=== PATIENT | male | born 1955 | race African-American/Black ===

== ENCOUNTER 2019-03-12 12:15 | Inpatient (IN) ==
--- NOTE | 2019-03-12 13:48 | Diag Imaging Result Doc PS360 ---
EXAM: CHEST-2 VIEWS HISTORY: short of breath TECHNIQUE: Two views COMPARISON: 01/15/2019 FINDINGS: The lungs are well expanded. The heart is not enlarged. The vessels are not distended. There are no infiltrates. No pleural effusions. Lower right lung calcified granuloma. IMPRESSION: No acute abnormality. Electronically signed by Nitesh Gillette 03/12/2019 1:46 PM
[2019-03-12 14:09] LABS: BASO# 0.01 X1000 (0.0-0.2); BASO% 0.1 % (0.0-0.8); EOS# 0.01 X1000 (0.0-0.7); EOS% 0.1 % (0.0-10.0); HEMATOCRIT 37.2 % (42.0-52.0); HEMOGLOBIN 12.5 g/dL (14.0-18.0); IMM GRAN# 0.03 X1000 (0.0-0.04); IMM GRAN% 0.2 % (0.0-0.5); LYMPH# 1.55 X1000 (1.2-3.4); LYMPH% 8.2 % (20.5-51.1); MCH 29.3 PG (27-31); MCHC 33.6 g/dL (33-37); MCV 87.1 FL (81-99); MONO# 0.87 X1000 (0.11-0.59); MONO% 4.6 % (1.7-9.3); MPV 11.4 FL (7.4-10.4); NEUT# 16.37 X1000 (1.4-6.5); NEUT% 86.8 % (42.2-75.2); PLT 293 X1000 (130-400); RBC 4.27 XMIL (4.7-6.1); RDW 13.4 % (11.5-14.5); WBC 18.84 X1000 (4.8-10.8)
[2019-03-12 14:36] LABS: AGAP 17; ALB/GLOB RATIO 1.4; ALBUMIN 4.1 g/dL (3.5-5.0); ALKALINE PHOSPHATASE 104 U/L (32-122); BUN 12 mg/dL (8-22); CALCIUM 9.3 mg/dL (8.8-10.2); CHLORIDE 99 mmol/L (98-107); COSMO 287; CREATININE 1.1 mg/dL (0.7-1.2); ESTIMATED GFR > 60; GLUCOSE 247 mg/dL (70-104); GOT 18 U/L (10-34); GPT 13 U/L (10-44); POTASSIUM 3.5 mmol/L (3.5-5.1); SODIUM 140 mmol/L (136-145); TCO2 24 mmol/L (25-35); TOTAL BILIRUBIN 0.27 mg/dL (0.20-1.00)
[2019-03-12 15:01] LABS: URINE SOURCE CLEAN CATCH
[2019-03-12 15:13] LABS: BILIRUBIN URINE NEGATIVE (NEGATIVE); BLOOD URINE NEGATIVE (NEGATIVE); COLOR YELLOW; GLUCOSE URINE 1000 mg/dL (NEGATIVE); KETONE URINE 20 mg/dL (NEGATIVE); LEUKOCYTES URINE NEGATIVE (NEGATIVE); NITRITE URINE NEGATIVE (NEGATIVE); PH URINE 7.5; PROTEIN URINE 30 mg/dL (NEGATIVE); SP GRAVITY URINE 1.016; TURBIDITY URINE CLEAR (CLEAR); UROBILINOGEN URINE NORMAL (NORMAL)
[2019-03-12 15:16] LABS: UR EPITHELIAL CELLS <10 /HPF (<10); URINE BACTERIA NEGATIVE /HPF; URINE RBC <10 /HPF (<10); URINE WBC <10 /HPF (<10)
[2019-03-12 15:25] LABS: UR AMPHETAMINES QUAL NONE DETECTED (NONE DETECT); UR BARBITUATES QUAL NONE DETECTED (NONE DETECT); UR BENZODIAZEPIN QUAL NONE DETECTED (NONE DETECT); UR CANNABINOIDS QUAL NONE DETECTED (NONE DETECT); UR COCAINE QUAL NONE DETECTED (NONE DETECT); UR METHADONE QUAL NONE DETECTED (NONE DETECT); UR OPIATES QUAL NONE DETECTED (NONE DETECT); UR OXYCODONE QUAL NONE DETECTED (NONE DETECT); UR PCP QUAL NONE DETECTED (NONE DETECT)
--- NOTE | 2019-03-12 17:15 | Diag Imaging Result Doc PS360 ---
EXAM: CT HEAD W/O CONTRAST HISTORY: weakness TECHNIQUE: CT head without intravenous contrast COMPARISON: 11/20/2018 FINDINGS: No parenchymal hemorrhage. No epidural or subdural hematoma. No subarachnoid hemorrhage. Small old left periventricular infarct near the frontal horn of the internal capsule. No mass identified on this noncontrasted exam. No hydrocephalus. No sinus opacification. IMPRESSION: 1.No hemorrhage 2.Small old left infarct. This exam was performed using automated exposure control, adjustment of mA or kV according to patient size, and/or use of iterative reconstruction technique. Electronically signed by Nitesh Gillette 03/12/2019 5:12 PM
--- NOTE | 2019-03-12 17:54 | PROVIDER DOCUMENTATION ---
This chart was entered by Mikki Pham Scribe, acting as scribe for Saman Arteaga MD. HPI-Neurological Disorder - General Chief Complaint: Stroke-Like Symptoms Stated Complaint: WEAK ALL OVER Time Seen by Provider: 03/12/19 12:59 Source: patient Allergies/Adverse Reactions: Patient Allergies Allergy/AdvReac Type Severity Reaction Status Date / Time Sulfa (Sulfonamide Allergy RASH Verified 03/10/19 14:51 Antibiotics) cephalexin [From Keflex] AdvReac RASH Verified 03/10/19 14:51 Home Medications: Home Medication List Medication Instructions Recorded Confirmed Last Taken Type Amlodipine Besylate [Norvasc] 1 tab PO DAILY 01/10/19 03/10/19 01/10/19 History Aripiprazole [Abilify] 1 tab PO QHS 01/10/19 03/10/19 01/10/19 History Cetirizine HCl [Zyrtec] 1 tab PO DAILY 01/10/19 03/10/19 01/10/19 History Cholecalciferol (Vit D3) [Vitamin 1 cap PO DAILY 01/10/19 03/10/19 01/10/19 History D] Duloxetine [Cymbalta] 1 cap PO DAILY 01/10/19 03/10/19 01/10/19 History Lisinopril [Zestril] 1 tab PO DAILY 01/10/19 03/10/19 01/10/19 History Metformin [Glucophage] 1 tab PO BID 01/10/19 03/10/19 01/10/19 History Metoprolol [Lopressor] 1 tab PO BID 01/10/19 03/10/19 01/10/19 History Mirtazapine [Remeron] 1 tab PO QHS 01/10/19 03/10/19 01/10/19 History Naproxen [Naprosyn] 1 tab PO BID 01/10/19 03/10/19 01/10/19 History Nystatin/Triamcin 1 applicatn TOP DIRECTED 01/10/19 03/10/19 01/10/19 History [Nystatin-Triamcinolone Cream] Tamsulosin [Flomax] 1 cap PO BID 01/10/19 03/10/19 01/10/19 History - History of Present Illness-Neuro Nature of Presenting Problem: 63 y/o male presents to ED with generalized weakness, slurred speech, and decreased ability to walk onset 4 days ago. Pt denies fever or any other complaints. Pt is alert and oriented. Headache Location: reports: other Severity: reports: mild Onset/Duration: reports: 4 days ago Timing: reports: still present Context: reports: impaired speech, other (generalized weakness; decreased ability to walk) Character of Altered Mental Status: reports: N/A Any recent trauma/injury?: reports: none Character of Deficits: reports: new weakness, impaired speech, decreased ability to walk New weakness or altered sensation location:: reports: general (diffuse) Cognitive Baseline: alert, oriented x3 Gait Baseline: walks without assistance Associated Symptoms: reports: decreased ability to walk or stand, slurred speech , trouble walking, weakness Similar Symptoms Previously?: Yes Recently seen or treated by another doctor?: Yes (ED 2 days ago) Review of Systems - Adult - REVIEW OF SYSTEMS - ADULT Constitutional: denies: chills, fever Eyes: reports: no symptoms reported Ears, Nose, Mouth & Throat: reports: no symptoms reported Cardiovascular: denies: chest pain, palpitations Respiratory: denies: cough, shortness of breath Gastrointestinal: denies: abdominal pain, diarrhea, nausea, vomiting Genitourinary: reports: no symptoms reported Musculoskeletal: reports: no symptoms reported Integumentary: reports: no symptoms reported Neurological: reports: slurred speech, other (generalized weakness; decreased ability to walk). denies: dizziness/vertigo, headache/migraines, seizure Psychiatric: reports: no symptoms reported Endocrine: reports: no symptoms reported Hematologic/Lymphatic: reports: no symptoms reported Allergic/Immunologic: reports: no symptoms reported All Other Systems: Reviewed and Negative Past History - Adult - PAST MEDICAL HISTORY-ADULT Review of Records: reports: Old Records Reviewed, Nursing Assessment Review, Medications Reviewed Major Childhood Illnesses: reports: denies history Cardiovascular: reports: CAD, CHF, HTN, hyperlipidemia Respiratory: reports: asthma Gastrointestinal: reports: GERD Obstetrical/Gynecological: reports: denies history Genitourinary: reports: denies history Musculoskeletal: reports: denies history Neurological: reports: denies history Psychiatric: reports: psychiatric problems Endocrine/Immune: reports: Diabetes Diabetes Type: Type 2 Other Conditions: reports: denies history - PRIOR SURGERIES/PROCEDURES Surgical/Procedure History: reports: reviewed, not pertinent, back/neck (back) - IMMUNIZATION STATUS Childhood Immunizations: See Nurse Assessment Flu Vaccine: See Nurse Assessment - FAMILY HISTORY Family History: CAD over 55 yo - SOCIAL HISTORY Smoking: quit greater than 1 year Substance Use: none/never Alcohol Use Frequency: never Living Situation: family Physical Exam- Neurological - Physical Exam-Neuro Initial Vital Signs Reviewed: Yes General Appearance: appears well, alert, no apparent distress Eye Exam: bilateral eye: normal inspection, PERRL, EOMI HENMT: normocephalic/atraumatic, moist mucous membranes, normal ENT inspection Head Injury: no evidence of injury Neck: non-tender, full range of motion Respiratory: chest non-tender, lungs clear, normal breath sounds Cardiovascular: normal peripheral pulses, regular rate, rhythm Abdominal Exam: normal bowel sounds, soft, tenderness (muld upper abdominal tenderness) Extremity: normal range of motion, non-tender. 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 negative: normal gait Motor/Sensory: no sensory deficit, weak motor strength RUE, weak motor strength LUE, weak motor strength RLE, weak motor strength LLE Neurologic: abnormal gait, motor weakness (diffuse). negative: sensory deficit Integumentary: normal color, warm/dry Psych/Mental Status: normal mood/affect, normal thought content, normal thought process, oriented x 3 Progress - PLAN OF CARE/RESULTS Progress/Plan/Lab Results: Vital Signs - 8 hr 03/12/19 12:48 Temperature 98.8 F Pulse Rate 108 H Respiratory Rate 18 Blood Pressure 169/81 O2 Sat by Pulse Oximetry 99 Laboratory Results - last 24 hr 03/12/19 03/12/19 03/12/19 13:47 13:49 13:49 WBC 18.84 H RBC 4.27 L Hgb 12.5 L Hct 37.2 L MCV 87.1 MCH 29.3 MCHC 33.6 RDW Std Deviation 13.4 Plt Count 293 MPV 11.4 H Immature Gran % (Auto) 0.2 Neut % (Auto) 86.8 H Lymph % (Auto) 8.2 L [place] % (Auto) 4.6 Eos % (Auto) 0.1 Baso % (Auto) 0.1 Immature Gran # (Auto) 0.03 Neut # (Auto) 16.37 H Lymph # (Auto) 1.55 [place] # (Auto) 0.87 H Eos # (Auto) 0.01 Baso # (Auto) 0.01 Sodium 140 Potassium 3.5 Chloride 99 Carbon Dioxide 24 L Anion Gap 17 BUN 12 Creatinine 1.1 Estimated GFR/1.73 m2 > 60 BUN/Creatinine Ratio 11 Glucose 247 H POC Glucose 236 H Calculated Osmolality 287 Calcium 9.3 Total Bilirubin 0.27 AST 18 ALT 13 Alkaline Phosphatase 104 Total Protein 7.0 Albumin 4.1 Globulin 2.9 Albumin/Globulin Ratio 1.4 Urine Source Urine Color Urine Turbidity Urine pH Ur Specific [place] Urine Protein Ur Glucose (Stick) Ur Ketones (Stick) Urine Blood Urine Nitrite Urine Bilirubin Urobilinogen Dipstick Urine Leukocytes Urine WBC (Auto) Urine RBC (Auto) U Epithel Cells (Auto) Urine Bacteria (Auto) Urine Opiates Screen Ur Oxycodone Screen Ur Methadone, Qual Ur Barbiturates Screen Ur Phencyclidine Scrn Ur Amphetamines Screen U Benzodiazepines Scrn Urine Cocaine Screen U Cannabinoids Screen 03/12/19 03/12/19 14:27 14:27 WBC RBC Hgb Hct MCV MCH MCHC RDW Std Deviation Plt Count MPV Immature Gran % (Auto) Neut % (Auto) Lymph % (Auto) [place] % (Auto) Eos % (Auto) Baso % (Auto) Immature Gran # (Auto) Neut # (Auto) Lymph # (Auto) [place] # (Auto) Eos # (Auto) Baso # (Auto) Sodium Potassium Chloride Carbon Dioxide Anion Gap BUN Creatinine Estimated GFR/1.73 m2 BUN/Creatinine Ratio Glucose POC Glucose Calculated Osmolality Calcium Total Bilirubin AST ALT Alkaline Phosphatase Total Protein Albumin Globulin Albumin/Globulin Ratio Urine Source CLEAN CATCH Urine Color YELLOW Urine Turbidity CLEAR Urine pH 7.5 Ur Specific [place] 1.016 Urine Protein 30 A Ur Glucose (Stick) 1000 A Ur Ketones (Stick) 20 A Urine Blood NEGATIVE Urine Nitrite NEGATIVE Urine Bilirubin NEGATIVE Urobilinogen Dipstick NORMAL Urine Leukocytes NEGATIVE Urine WBC (Auto) <10 Urine RBC (Auto) <10 U Epithel Cells (Auto) <10 Urine Bacteria (Auto) NEGATIVE Urine Opiates Screen NONE DETECTED Ur Oxycodone Screen NONE DETECTED Ur Methadone, Qual NONE DETECTED Ur Barbiturates Screen NONE DETECTED Ur Phencyclidine Scrn NONE DETECTED Ur Amphetamines Screen NONE DETECTED U Benzodiazepines Scrn NONE DETECTED Urine Cocaine Screen NONE DETECTED U Cannabinoids Screen NONE DETECTED Orders Category Date Time Status CHEST-2 VIEWS [RAD] Stat Exams 03/12/19 13:[address] HEAD W/O CONTRAST [CT] Stat Exams 03/12/19 13:18 Completed CBC WITH DIFF [HEME] Stat Lab 03/12/19 13:49 Completed COMPREHENSIVE METABOLIC PANEL [CHEM] Stat Lab 03/12/19 13:49 Completed URINALYSIS W/POSS RFLX CULT [URINALYSIS] Stat Lab 03/12/19 14:27 Completed URINE DRUG SCREEN Stat Lab 03/12/19 14:27 Completed Result Diagrams: 03/12/19 13:49 03/12/19 13:49 - EKG 1 Time of EKG reading by physician:: 13:35 EKG Read and Signed by:: Saman Arteaga EKG Interpretation (*Must complete 3 of following elements*): Normal Rate: 84 Rhythm: Sinus with premature atrial complexes [place]: normal QRS: normal [place] Interval: normal ST Wave: normal - XRAY 1 XRAY Study: Chest Impression: See EMR Report ([facility] - [address] [place] [address] [place], [place] [id number] [facility] - [address] [place] [address] Department of Imaging Patient: AALIYAH PATEL Date: 03/12/19#: [id number] : 8ADM Status: PRE ERAcct#: [id number] Age/Sex: 63/MRoom/Bed: Loc: ED Ordering Physician: Saman Arteaga MD Family Physician: Carl Lema MD Reason for Procedure: short of breath Signed EXAM: CHEST-2 VIEWS HISTORY: short of breath TECHNIQUE: Two views COMPARISON: 01/15/2019 FINDINGS: The lungs are well expanded. The heart is not enlarged. The vessels are not distended. There are no infiltrates. No pleural effusions. Lower right lung calcified granuloma. IMPRESSION: No acute abnormality. Electronically signed by Nitesh Gillette 03/12/2019 1:46 PM 03/12/19 1346 Interpreting Physician: Nitesh Gillette MD Dictated Date/Time: 03/12/19 1345 cc: Saman Arteaga MD; Carl Lema MD) - CT/MRI 1 CT Study: Head Impression: See EMR Report ([facility] - [address] , [address], [place] [address] [facility] - [address] , [place] [address] Department of Imaging Patient: AALIYAH PATEL Date: 03/12/19MR#: [id number] : 8ADM Status: REG ERAcct#: [id number] Age/Sex: 63/MRoom/Bed: Loc: ED Ordering Physician: Saman Arteaga MD Family Physician: Carl Lema MD Reason for Procedure: weakness Signed EXAM: CT HEAD W/O CONTRAST HISTORY: weakness TECHNIQUE: CT head without intravenous contrast COMPARISON: 11/20/2018 FINDINGS: No parenchymal hemorrhage. No epidural or subdural hematoma. No subarachnoid hemorrhage. Small old left periventricular infarct near the frontal horn of the internal capsule. No mass identified on this noncontrasted exam. No hydrocephalus. No sinus opacification. IMPRESSION: 1.No hemorrhage 2.Small old left infarct. This exam was performed using automated exposure control, adjustment of mA or kV according to patient size, and/or use of iterative reconstruction technique. Electronically signed by Nitesh Gillette 03/12/2019 5:12 PM 03/12/19 1712 Interpreting Physician: Nitesh Gillette MD Dictated Date/Time: 03/12/19 1711 cc: Saman Arteaga MD; Carl Lema MD) - CONSULTS/PCP/HOSPITALIST Notification #1 *Consult/PCP/Hospitalist*: Dr. Hankins Time Discussed: 17:32 Reason/Comments: AMS Consult Disposition: Admit Departure - Departure Date of Disposition Decision: 03/12/19 Time of Disposition Decision: 17:17 DIAGNOSIS: Altered mental status Qualifiers: Altered mental status type: unspecified Qualified Code(s): R41.82 - Altered mental status, unspecified Disposition: ADMITTED INPATIENT 09 Certified Medical Emergency: Emergent Condition: Stable Referrals and Follow-Ups: Carl Lema MD [Primary Care Provider] - - Critical Care Note This patient required my direct & personal management of CC.: No Attestation - Physician/ REGINALD Attestation Patient care was provided by Advanced Practice Provider:: No The physician spent face to face time with patient:: Yes Advanced Practice Provider documentation review:: Supervising physician onsite and consulted in the evaluation and care of this patient. The physician did have a face to face encounter with the patient. This chart was documented by the indicated scribe, (Mikki Pham Scribe) and accurately reflects the services I performed and decisions made by me, Saman Arteaga MD, as attested by the provider's signature.
--- NOTE | 2019-03-12 19:34 | Diag Imaging Result Doc PS360 ---
EXAM: CT THORAX/ABD/PELVIS W/CON HISTORY: AMS, leucocytosis TECHNIQUE: 1. CT chest with intravenous contrast 2. CT abdomen and pelvis with intravenous contrast, but without oral contrast. COMPARISON: 01/10/2019 FINDINGS: Chest: No pleural effusions. No aortic aneurysm or dissection. No cardiomegaly. There calcified mediastinal nodes and scattered granuloma. Tiny left lower lobe infiltrates. No consolidation. Abdomen and pelvis: No calcified gallstones or adjacent inflammation. Mild fatty infiltration of the liver. Normal spleen, pancreas, adrenal glands, and kidneys. No hydronephrosis. No aortic aneurysm. Moderate atherosclerosis. Normal appendix. No abscess. No bowel obstruction. There are scattered colonic diverticula. The urinary bladder is distended and appears normal. The prostate is not enlarged. There is a fat filled umbilical hernia. IMPRESSION: Chest: tiny left lower lobe infiltrates Abdomen and pelvis: 1.Fatty infiltration of the liver 2.Colonic diverticulosis 3.Fat filled umbilical hernia This exam was performed using automated exposure control, adjustment of mA or kV according to patient size, and/or use of iterative reconstruction technique. Electronically signed by Nitesh Gillette 03/12/2019 7:32 PM
--- NOTE | 2019-03-12 19:38 | HISTORY AND PHYSICAL ---
CHIEF COMPLAINT: Altered mental status. PRIMARY CARE PHYSICIAN: Dr. Carl Lema. HISTORY OF PRESENT ILLNESS: This is a 63-year-old male with past medical history of general weakness, altered mental status, hypertension and diabetes, who presented to the emergency department complaining of general weakness, slurred speech, decreased ability to walk that started three to four days ago. According to the family, because patient is not a good historian, he has been complaining of those. He has been seen three days ago in [place] ED for the same reason, but he was discharged home. The patient reports that he has been feeling weakness all over mostly in both lower extremities. Upon ER evaluation, he was found that this patient had an elevation of white cell count. He denies any fever, cough, or any urinary symptoms. His blood sugar has been noted elevated at 247. UDS is completely negative. So at this point, he is going to be admitted for further evaluation and treatment. PAST MEDICAL HISTORY: 1. Hypertension. 2. Diabetes mellitus type 2. 3. Congestive heart failure. 4. Bronchial asthma. 5. Low potassium. 6. Congestive heart failure. 7. The patient has been evaluated on [facility] and is being followed at the [facility] in [place] but he does not remember, neither he or his family, about his diagnosis. Actually he has not been seen since November 2017, apparently for altered mental status. 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 PAST SURGICAL HISTORY: Back surgery in 2004. ALLERGIES: The patient is allergic to sulfa and cephalexin. SOCIAL HISTORY: The patient lives with brother. He never drinks alcohol or uses illicit drugs. FAMILY HISTORY: Not possible to obtain. PHYSICAL EXAMINATION: VITAL SIGNS: Temperature 97.6 degrees, heart rate 66, respiratory rate 18, blood pressure 137/78, O2 saturation 100% on room air. GENERAL EXAMINATION: This is a chronically ill-appearing 63-year-old male, lying in bed, in no acute distress. HEENT: Head is normocephalic, atraumatic. Mucous membranes dry with poor dentition. Pupils equal, round, reactive to light and accommodation. NECK: No JVD noted. No carotid bruits. No lymphadenopathy. No thyromegaly. CARDIOVASCULAR: S1, S2 heard. No murmurs, gallops, or rubs. Regular rate and rhythm. RESPIRATORY EXAM: Clear bilaterally to auscultation. No work of breathing or using accessory muscles. ABDOMEN: There is diffuse tenderness to palpation but no signs of peritoneal irritation. Bowel sounds present. No organomegaly. EXTREMITIES: No clubbing, cyanosis, or edema. Peripheral pulses present in both legs. NEUROLOGICAL: The patient is awake and oriented to person. Moves four extremities. The patient is a little bit lethargic, but awakes to verbal stimuli. Motor strength is 4/5 in both lower extremities as well as upper. Cranial nerves grossly normal II-XII. LABORATORY DATA: White cell count 18.34, hemoglobin 12.5, hematocrit 37.2, platelets 293,000. Normal BMP except glucose 247. ASSESSMENT AND PLAN: 1. Altered mental status. At this point, the reason for this problem is uncertain to me. The patient is not a good historian. The only positive elements in the lab is a leukocytosis of 18,000. For this altered mental status they ordered a CT of the head which basically showed no hemorrhage and a small old left infarct. The chest x-ray showed no acute abnormality, that was actually a two-view x-ray. At this point, what I am planning to do is to do a CT of the abdomen and thorax, abdomen and pelvis to see there is any abnormality we can find. I am going to start broad spectrum antibiotics empirically and if CT scan or urine or blood cultures that I have ordered are negative, then will stop those. Another option could be polypharmacy. Will try to avoid sedative medications and will go from there. 2. Diabetes mellitus type 2. We will continue with Accu-Chek before meals and at bedtime and a sliding scale insulin as well. 3. Hypertension. We will continue with home medications. 4. Schizophrenia, unspecified. Will continue with home medications. Further recommendations to follow according to the clinical situation of the patient. cc: Ramon Leonardo MD MTDD
[2019-03-12] MEDS: LOVENOX SUBQ SCH (19:47)
[2019-03-12] MEDS: ZOSYN 3.375 GM in NS 50 ML IV SCH (19:47)
[2019-03-12] MEDS: FLOMAX PO SCH (22:17)
[2019-03-12] MEDS: ABILIFY PO SCH (22:18)
[2019-03-12] MEDS: ZYVOX 600 MG/D5W 600 MG/300 ML IVPB IV SCH (22:20)
[2019-03-12] MEDS: NS 1,000 ML IV SCH (22:20)
[2019-03-12] MEDS: HUMALOG SUBQ SCH (22:22)
[2019-03-13] MEDS: ZOSYN 3.375 GM in NS 50 ML IV SCH ×4 (00:31→18:39)
[2019-03-13] MEDS: ZOFRAN IV PRN (02:37)
[2019-03-13] MEDS: ZYVOX 600 MG/D5W 600 MG/300 ML IVPB IV SCH ×2 (06:51→18:38)
[2019-03-13] MEDS: HUMALOG SUBQ SCH ×4 (06:51→20:41)
--- NOTE | 2019-03-13 07:16 | EKG Report ---
Test Performed on : 03/12/2019 1:32:35 PM Test Reason : ED. NO EKG ORDER FOR MUSE Blood Pressure : / mmHG Vent. Rate : 084 BPM Atrial Rate : 084 BPM P-R Int : 150 ms QRS Dur : 086 ms QT Int : 364 ms P-R-T Axes : 030 025 043 degrees QTc Int : 430 ms Sinus rhythm. with premature atrial complexes. Otherwise normal ECG When compared with ECG of 10-MAR-2019 13:20, (Unconfirmed) No significant change was found Unconfirmed Result
[2019-03-13 07:52] LABS: BASO# 0.02 X1000 (0.0-0.2); BASO% 0.1 % (0.0-0.8); EOS# 0.02 X1000 (0.0-0.7); EOS% 0.1 % (0.0-10.0); HEMATOCRIT 35.8 % (42.0-52.0); HEMOGLOBIN 11.9 g/dL (14.0-18.0); IMM GRAN# 0.04 X1000 (0.0-0.04); IMM GRAN% 0.3 % (0.0-0.5); LYMPH# 1.43 X1000 (1.2-3.4); LYMPH% 10.7 % (20.5-51.1); MCH 29.2 PG (27-31); MCHC 33.2 g/dL (33-37); MONO# 0.82 X1000 (0.11-0.59); MONO% 6.1 % (1.7-9.3); MPV 11.6 FL (7.4-10.4); NEUT# 11.08 X1000 (1.4-6.5); NEUT% 82.7 % (42.2-75.2); PLT 278 X1000 (130-400); RBC 4.07 XMIL (4.7-6.1); RDW 13.4 % (11.5-14.5); WBC 13.41 X1000 (4.8-10.8)
[2019-03-13 08:41] LABS: AGAP 16; BUN 9 mg/dL (8-22); CHLORIDE 97 mmol/L (98-107); COSMO 285; CREATININE 1.1 mg/dL (0.7-1.2); ESTIMATED GFR > 60; GLUCOSE 281 mg/dL (70-104); MAGNESIUM 1.8 mg/dL (1.5-2.7); POTASSIUM 3.2 mmol/L (3.5-5.1); SODIUM 138 mmol/L (136-145); TCO2 25 mmol/L (25-35)
[2019-03-13] MEDS: FLOMAX PO SCH ×2 (08:48→20:40)
[2019-03-13] MEDS: PRILOSEC PO SCH (08:48)
[2019-03-13] MEDS: PRINIVIL PO SCH (08:48)
[2019-03-13] MEDS: NORVASC PO SCH (08:48)
[2019-03-13] MEDS: TYLENOL PO PRN ×2 (11:04→18:39)
--- NOTE | 2019-03-13 13:07 | PROGRESS NOTE ---
DATE: 03/13/2019 SUBJECTIVE: The patient reports still feeling some somewhat weak, but better in comparing with yesterday. No acute issues noted as per nursing staff overnight. OBJECTIVE: Vital Signs: Temperature 98.4 degrees, heart rate 88, respiratory rate 16, blood pressure 180/98 , and O2 saturation 98% on room air. General: This is a 63-year-old male, lying in bed, in no acute distress. Cardiovascular: S1, S2 heard. No murmurs, gallops, or rubs. Regular rate and rhythm. Respiratory: Clear bilaterally to auscultation. No work of breathing or using accessory muscles. Abdomen: Soft, nontender to palpation. Bowel sounds present. No organomegaly. Extremities: No clubbing. No cyanosis or edema. Peripheral pulses present in both legs. Neurological: Patient alert and oriented x3. Moves 4 extremities. LABORATORY DATA: White cell count is 13,000. ASSESSMENT AND PLAN: 1. Left lower lobe pneumonia. That is most likely the reason why this patient has become encephalopathic. At this time, we will continue with current antibiotics, in this case Zosyn and Zyvox. White cell count is getting better. We will continue with the same management. 2. General weakness. Physical therapy and occupational therapy has been consulted. 3. Schizophrenia, unspecified. We will continue home medication. 4. Hypertension. We have restarted amlodipine and lisinopril for him, but blood pressure is still high. We will add hydralazine as needed, and we will continue to monitor. 5. Diabetes mellitus type 2. We will continue with Accu-Chek before meals and also at bedtime and sliding scale insulin as well. 6. Disposition. We will continue to monitor this patient closely. cc: MD MEI Suggs
[2019-03-13] MEDS: NS 1,000 ML IV SCH ×2 (14:40→16:39)
[2019-03-13] MEDS: LOVENOX SUBQ SCH (18:40)
[2019-03-13] MEDS: ABILIFY PO SCH (20:40)
[2019-03-13 20:55] LABS: HIV ANTIBODY SCREEN SEE COMMENTS
[2019-03-14] MEDS: ZOSYN 3.375 GM in NS 50 ML IV SCH ×5 (01:02→19:08)
[2019-03-14] MEDS: TYLENOL PO PRN ×2 (01:02→23:52)
[2019-03-14] MEDS: NS 1,000 ML IV SCH ×2 (05:10→15:18)
[2019-03-14] MEDS: ZYVOX 600 MG/D5W 600 MG/300 ML IVPB IV SCH ×2 (06:45→20:42)
[2019-03-14] MEDS: HUMALOG SUBQ SCH ×4 (06:45→20:42)
[2019-03-14 07:38] LABS: BASO# 0.02 X1000 (0.0-0.2); BASO% 0.1 % (0.0-0.8); EOS# 0.03 X1000 (0.0-0.7); EOS% 0.2 % (0.0-10.0); HEMOGLOBIN 11.8 g/dL (14.0-18.0); IMM GRAN# 0.03 X1000 (0.0-0.04); IMM GRAN% 0.2 % (0.0-0.5); LYMPH# 1.27 X1000 (1.2-3.4); LYMPH% 8.4 % (20.5-51.1); MCH 29.3 PG (27-31); MCHC 33.7 g/dL (33-37); MCV 86.8 FL (81-99); MONO# 0.63 X1000 (0.11-0.59); MONO% 4.2 % (1.7-9.3); MPV 11.5 FL (7.4-10.4); NEUT# 13.08 X1000 (1.4-6.5); NEUT% 86.9 % (42.2-75.2); PLT 268 X1000 (130-400); RBC 4.03 XMIL (4.7-6.1); RDW 13.4 % (11.5-14.5); WBC 15.06 X1000 (4.8-10.8)
[2019-03-14 07:47] LABS: AGAP 14; BUN 8 mg/dL (8-22); CALCIUM 8.7 mg/dL (8.8-10.2); CHLORIDE 98 mmol/L (98-107); COSMO 279; CREATININE 1.1 mg/dL (0.7-1.2); ESTIMATED GFR > 60; GLUCOSE 229 mg/dL (70-104); POTASSIUM 2.9 mmol/L (3.5-5.1); SODIUM 137 mmol/L (136-145); TCO2 25 mmol/L (25-35)
[2019-03-14 07:53] LABS: BANDS 2 % (0-1); LYMPHS 10 % (21-51); SEGS 88 % (42-75)
[2019-03-14] MEDS: FLOMAX PO SCH ×2 (10:12→20:42)
[2019-03-14] MEDS: PRINIVIL PO SCH ×2 (10:12→20:41)
[2019-03-14] MEDS: NORVASC PO SCH ×2 (10:12→20:42)
[2019-03-14] MEDS: PRILOSEC PO SCH (10:13)
[2019-03-14] MEDS: ZOFRAN IV PRN ×3 (10:23→22:48)
[2019-03-14] MEDS ORDERED: POTASSIUM CHLORIDE 60 MEQ in NS 500 ML IV ONE (14:07)
--- NOTE | 2019-03-14 16:35 | Diag Imaging Result Doc PS360 ---
EXAM: MRI BRAIN W/WO CONTRAST 03/14/2019 HISTORY: stroke, TECHNIQUE: T1 sagittal, axial and post gadolinium-enhanced axial with coronal reformation, axial T2, FLAIR, DWI and coronal gradient echo. COMMENT: There are no previous MRI studies available for comparison. There is increased T2-weighted signal intensity in the inferior eve upper medulla region. There is encephalomalacia in the anterior barnett radiata region and the internal capsule. There is restricted diffusion in the pontomedullary region and there is a tiny focus of restricted diffusion in the area of the left basal ganglia. There is no evidence of mass effect bleed or abnormal extra-axial fluid collection. There is no evidence of abnormal gadolinium enhancement. IMPRESSION: Acute infarct in the upper medulla/inferior eve. Minimal lacunar infarct in the left basal ganglia. Other chronic ischemic changes as described. The findings were discussed with Ramon Hankins MD at 03/14/2019 4:33 PM. Electronically signed by Ramiro Lopez 03/14/2019 4:33 PM
[2019-03-14] MEDS: LOVENOX SUBQ SCH ×2 (17:46→17:59)
--- NOTE | 2019-03-14 18:01 | PROGRESS NOTE ---
DATE: 03/14/2019 SUBJECTIVE: Patient continues to report feeling weak. Denies any fever or chills. He requested to have HIV test that returned negative today. OBJECTIVE: Vital Signs: Temperature 98.9 degrees, heart rate 98, respiratory rate 17, blood pressure 168/88, O2 saturation 97% on room air. General examination: This is a 63-year-old male, lying in bed, in no acute distress. Cardiovascular: S1 and S2 heard. No murmurs, gallops, or rubs. Regular rate and rhythm. Respiratory: Clear bilaterally to auscultation. No work of breathing or using accessory muscles. Abdomen: Soft. Nontender to palpation. Bowel sounds present. No organomegaly. Extremities: No clubbing, cyanosis, or edema. Peripheral pulses present in both legs. Neurological: Patient has motor strength of 4/5 in both lower extremities. Speech is okay. LABORATORY DATA: White cell count 15.36, hemoglobin 11.8, hematocrit 35.0, platelets 268,000. Potassium 2.9. MRI of the brain showed acute infarct in the left upper medulla and inferior eve with minimal coronary infarct in the left basal ganglia. ASSESSMENT AND PLAN: 1. Medulla inferior eve acute infarct. Because of his complaint of general weakness and also not able to provide a good history, I decided to do an MRI of the brain with results as above. At this point, we will check risk factors for him. This patient has diabetes and hypertension and congestive heart failure. So at this point, we are going to check his lipid panel. We will start this patient on aspirin and we will check hemoglobin A1c as well. We will consult neurology on Sunday. 2. Left lower lobe pneumonia. We will continue with antibiotic treatment, in this case Zosyn and Zyvox. 3. Schizophrenia, unspecified. Will continue with home medications. 4. Hypertension. Because this patient has been complaining of weakness and I think this infarct should have happened a few days ago, we will continue with current medications for blood pressure. We are not going to be more aggressive with the new treatment that this patient is receiving. 5. Diabetes mellitus type 2. We will continue with Accu-Chek before meals and also at bedtime and sliding scale insulin as well. 6. Disposition. We will continue to monitor this patient closely. cc: Ramon Leonardo MD
[2019-03-14] MEDS: ASPIRIN PO SCH (20:40)
[2019-03-14] MEDS: ABILIFY PO SCH (20:42)
[2019-03-15] MEDS: ZOSYN 3.375 GM in NS 50 ML IV SCH ×4 (01:21→22:22)
[2019-03-15] MEDS: ZOFRAN IV PRN ×2 (02:05→17:28)
[2019-03-15] MEDS: HUMALOG SUBQ SCH ×4 (06:19→22:24)
[2019-03-15] MEDS: NS 1,000 ML IV SCH ×3 (06:39→16:44)
[2019-03-15 07:23] LABS: BASO# 0.02 X1000 (0.0-0.2); BASO% 0.2 % (0.0-0.8); EOS# 0.02 X1000 (0.0-0.7); EOS% 0.2 % (0.0-10.0); HEMATOCRIT 34.9 % (42.0-52.0); HEMOGLOBIN 11.4 g/dL (14.0-18.0); IMM GRAN# 0.04 X1000 (0.0-0.04); IMM GRAN% 0.3 % (0.0-0.5); LYMPH# 1.37 X1000 (1.2-3.4); LYMPH% 10.3 % (20.5-51.1); MCH 29.1 PG (27-31); MCHC 32.7 g/dL (33-37); MONO# 0.73 X1000 (0.11-0.59); MONO% 5.5 % (1.7-9.3); MPV 11.7 FL (7.4-10.4); NEUT# 11.15 X1000 (1.4-6.5); NEUT% 83.5 % (42.2-75.2); PLT 265 X1000 (130-400); RBC 3.92 XMIL (4.7-6.1); RDW 13.7 % (11.5-14.5); WBC 13.33 X1000 (4.8-10.8)
[2019-03-15 08:05] LABS: AGAP 16; BUN 10 mg/dL (8-22); CALCIUM 8.2 mg/dL (8.8-10.2); CHLORIDE 99 mmol/L (98-107); COSMO 276; CREATININE 1.2 mg/dL (0.7-1.2); ESTIMATED GFR > 60; GLUCOSE 180 mg/dL (70-104); POTASSIUM 3.4 mmol/L (3.5-5.1); SODIUM 136 mmol/L (136-145); TCO2 21 mmol/L (25-35)
[2019-03-15] MEDS: ZYVOX 600 MG/D5W 600 MG/300 ML IVPB IV SCH ×2 (08:41→22:22)
[2019-03-15] MEDS: FLOMAX PO SCH ×2 (08:43→22:23)
[2019-03-15] MEDS: ASPIRIN PO SCH (08:43)
[2019-03-15] MEDS: PRINIVIL PO SCH ×2 (08:44→22:24)
[2019-03-15] MEDS: PRILOSEC PO SCH (08:44)
[2019-03-15] MEDS: NORVASC PO SCH ×2 (08:44→22:23)
[2019-03-15] MEDS ORDERED: KLOR-CON PO ONE (13:21)
--- NOTE | 2019-03-15 14:55 | PROGRESS NOTE ---
DATE: 03/15/2019 SUBJECTIVE: Patient is sometimes hard of hearing and looked a little bit confused. He keeps asking me about his results of HIV test. That has been informed negative yesterday and I already informed the patient. OBJECTIVE: Vital Signs: Temperature 98.6 degrees, the T-max was 100.2 degrees at 4:10 a.m. today. Heart rate 63, respiratory rate 23, blood pressure 178/93, O2 saturation 99% on room air. General Examination: This is a chronically ill-appearing 63-year-old male, lying in bed, in no acute distress. Cardiovascular: S1, S2 heard. No murmurs, gallops, or rubs. Regular rate and rhythm. Respiratory: Clear bilaterally to auscultation. No work of breathing or using accessory muscles. Abdomen: Soft, nontender to palpation. Bowel sounds present. No organomegaly. Extremities: No clubbing, cyanosis, or edema. Peripheral pulses present in both legs. Neurological: Patient has motor strength 4/5 in both lower extremities. Upper extremities 5/5. No other complaints noted. LABORATORY DATA: White cell count 13, potassium 3.4. ASSESSMENT AND PLAN: 1. Medulla and inferior eve acute infarct. At this point, we will continue with aspirin. We will consult Neurology. 2. Left lower lobe pneumonia. We will continue with antibiotics in this case, Zosyn and Zyvox. 3. Schizophrenia. We will continue home medications. 4. Hypertension. Because of this stroke we are allowing permissive hypertension. We will continue to monitor. 5. Diabetes mellitus type 2. We will continue with Accu-Chek before meals and also at bedtime and sliding scale insulin as well. 6. Disposition. We will continue to monitor this patient closely. cc: Ramon Leonardo MD [facility]Jose
--- NOTE | 2019-03-15 18:17 | Diag Imaging Result Doc PS360 ---
EXAM: CT HEAD W/O CONTRAST 03/15/2019 HISTORY: Projectile vomiting worsening stroke? TECHNIQUE: This exam was performed using automated exposure control, adjustment of mA or kV according to patient size, and/or use of iterative reconstruction technique. COMMENT: There is no evidence of mass effect, bleed, or abnormal extra-axial fluid collection. There is some encephalomalacia present in the anterior limb of the internal capsule and adjacent putamen. This has not changed significantly since 03/12/2023 11/20/2018. The visualized paranasal sinuses are clear. The calvarium is intact. IMPRESSION: Chronic ischemic changes. No evidence of acute intracranial disease. Electronically signed by Ramiro Lopez 03/15/2019 6:15 PM
[2019-03-15] MEDS: LOVENOX SUBQ SCH (18:28)
[2019-03-15] MEDS: ABILIFY PO SCH (22:23)
[2019-03-16] MEDS: ZOSYN 3.375 GM in NS 50 ML IV SCH ×4 (04:23→22:13)
[2019-03-16] MEDS: HUMALOG SUBQ SCH ×4 (06:26→20:54)
[2019-03-16] MEDS: ZOFRAN IV PRN (07:35)
[2019-03-16] MEDS: ZYVOX 600 MG/D5W 600 MG/300 ML IVPB IV SCH ×2 (07:35→20:51)
[2019-03-16 07:40] LABS: BASO# 0.02 X1000 (0.0-0.2); BASO% 0.1 % (0.0-0.8); EOS# 0.02 X1000 (0.0-0.7); EOS% 0.1 % (0.0-10.0); HEMATOCRIT 35.4 % (42.0-52.0); HEMOGLOBIN 11.7 g/dL (14.0-18.0); IMM GRAN# 0.03 X1000 (0.0-0.04); IMM GRAN% 0.2 % (0.0-0.5); LYMPH% 8.1 % (20.5-51.1); MCH 28.9 PG (27-31); MCHC 33.1 g/dL (33-37); MCV 87.4 FL (81-99); MONO# 1.12 X1000 (0.11-0.59); MPV 11.5 FL (7.4-10.4); NEUT# 13.53 X1000 (1.4-6.5); NEUT% 84.5 % (42.2-75.2); PLT 275 X1000 (130-400); RBC 4.05 XMIL (4.7-6.1); RDW 13.7 % (11.5-14.5); WBC 16.02 X1000 (4.8-10.8)
[2019-03-16] MEDS: NS 1,000 ML IV SCH ×3 (07:41→22:14)
[2019-03-16 08:07] LABS: AGAP 15; BUN 13 mg/dL (8-22); CALCIUM 8.5 mg/dL (8.8-10.2); CHLORIDE 98 mmol/L (98-107); COSMO 274; CREATININE 1.2 mg/dL (0.7-1.2); ESTIMATED GFR > 60; GLUCOSE 206 mg/dL (70-104); POTASSIUM 3.1 mmol/L (3.5-5.1); SODIUM 134 mmol/L (136-145); TCO2 21 mmol/L (25-35)
[2019-03-16] MEDS ORDERED: POTASSIUM CHLORIDE 60 MEQ in NS 500 ML IV ONE (10:30)
[2019-03-16] MEDS: PRILOSEC PO SCH (10:31)
[2019-03-16] MEDS: PRINIVIL PO SCH ×2 (10:31→20:10)
[2019-03-16] MEDS: FLOMAX PO SCH ×2 (10:32→20:10)
[2019-03-16] MEDS: NORVASC PO SCH ×2 (10:32→20:10)
[2019-03-16] MEDS: ASPIRIN PO SCH (10:32)
--- NOTE | 2019-03-16 11:08 | PROGRESS NOTE ---
DATE: 03/16/2019 SUBJECTIVE: According to nursing staff, he has been projectile vomiting yesterday afternoon, suspecting that he had a worsening stroke. We ordered a CT of the head which did not show any acute abnormality. He reports this morning that he is still feeling sick to his stomach. We are going to check an abdominal x-ray this morning. OBJECTIVE: Vital Signs: Temperature 97.9 degrees, heart rate 88, respiratory rate 14, blood pressure 169/71, O2 saturation 97% on room air. General: This is a chronically ill-appearing 63- year-old male, lying in bed, in no acute distress. Cardiovascular: S1, S2 heard. No murmurs, gallops, or rubs. Regular rate and rhythm. Respiratory: Clear bilaterally to auscultation. No work of breathing or using accessory muscles. Abdomen: Soft, nontender to palpation. Bowel sounds present. No organomegaly. Extremities: No clubbing, cyanosis, or edema. Peripheral pulses present in both legs. Neurological: Patient has motor strength 5/5 in all extremities. No slurred speech noted. No facial droop noted. LABORATORY DATA: White cell count 16.02, hemoglobin 11.7, hematocrit 35.4, platelets 275,000. Potassium is 3.1. Normal renal function. Calcium 8.5. ASSESSMENT AND PLAN: 1. Upper medulla/inferior eve infarct and lacunar infarct in the left basal ganglia. That is reason why this patient came to the hospital. He was complaining of general weakness, not able to provide more specific information, but that is the finding from the MRI of the brain. He is on aspirin 325 mg p.o. daily. Neurology will be consulted tomorrow. Physical Therapy and Occupational Therapy have been called. We have checked a CT of the head but did not show any worsening stroke. 2. Tiny left lower lobe pneumonia. We will continue with Zosyn and Zyvox. 3. Projectile vomiting. We are going to check an x-ray of abdomen today and will see what it shows. 4. Schizophrenia. We will continue home medications. 5. Hypertension. We are allowing permissive hypertension. We will continue to monitor this patient closely. 6. Diabetes mellitus type 2. We will continue with sliding scale insulin. Accu-Chek before meals and also at bedtime. 7. Disposition. We will continue to monitor this patient closely. For stroke, Physical Therapy and Occupational Therapy has been consulted. Neurology will see this patient tomorrow. cc: Ramon Leonardo MD MTDD
--- NOTE | 2019-03-16 12:26 | Diag Imaging Result Doc PS360 ---
EXAM: ABDOMEN FLAT/UPRIGHT 03/16/2019 HISTORY: projectile vomiting TECHNIQUE: AP upright and flat abdomen COMMENT: The stomach is somewhat distended with gas. This was not evident on the previous study of 12/11/2018. There is gas in the transverse and rectosigmoid colon. The small bowel is not distended. There is no evidence of organomegaly or mass. IMPRESSION: The possibility of gastroparesis or gastric outlet obstruction cannot be excluded. Otherwise nonspecific abdomen. Electronically signed by Ramiro Lopez 03/16/2019 12:23 PM
[2019-03-16] MEDS ORDERED: SODIUM CHLORIDE 0.9% INJ PRN (12:42)
[2019-03-16] MEDS ORDERED: GOLYTELY PO ONE (12:42)
[2019-03-16] MEDS: PHENERGAN IV PRN ×2 (15:37→20:47)
--- NOTE | 2019-03-16 16:16 | Diag Imaging Result Doc PS360 ---
EXAM: CHEST/ABD TUBE PLACEMENT 03/16/2019 HISTORY: NG tube placement TECHNIQUE: AP chest and abdomen for NG tube placement COMMENT: The NG tube tip is in the fundus of the stomach. The stomach is less distended with gas as it was on 1213. IMPRESSION: NG tube in the stomach. Electronically signed by Ramiro Lopez 03/16/2019 4:14 PM
[2019-03-16] MEDS: LOVENOX SUBQ SCH (18:42)
[2019-03-16] MEDS: ABILIFY PO SCH (20:09)
[2019-03-16] MEDS ORDERED: MORPHINE IV ONE (20:23)
[2019-03-16] MEDS: APRESOLINE IV PRN (20:51)
[2019-03-17] MEDS: ZOSYN 3.375 GM in NS 50 ML IV SCH ×3 (03:11→16:57)
[2019-03-17] MEDS: HUMALOG SUBQ SCH ×3 (06:05→20:33)
[2019-03-17 08:07] LABS: BASO# 0.03 X1000 (0.0-0.2); BASO% 0.2 % (0.0-0.8); EOS# 0.15 X1000 (0.0-0.7); HEMATOCRIT 33.7 % (42.0-52.0); IMM GRAN% 0.6 % (0.0-0.5); LYMPH% 9.7 % (20.5-51.1); MCH 28.8 PG (27-31); MCHC 32.6 g/dL (33-37); MCV 88.2 FL (81-99); MONO# 1.32 X1000 (0.11-0.59); MONO% 8.6 % (1.7-9.3); MPV 11.5 FL (7.4-10.4); NEUT# 12.33 X1000 (1.4-6.5); NEUT% 79.9 % (42.2-75.2); PLT 272 X1000 (130-400); RBC 3.82 XMIL (4.7-6.1); RDW 13.8 % (11.5-14.5); WBC 15.43 X1000 (4.8-10.8)
[2019-03-17] MEDS: ZYVOX 600 MG/D5W 600 MG/300 ML IVPB IV SCH ×2 (08:11→20:59)
[2019-03-17] MEDS: ASPIRIN PO SCH (08:11)
[2019-03-17] MEDS: FLOMAX PO SCH ×2 (08:11→20:32)
[2019-03-17] MEDS: NORVASC PO SCH (08:11)
[2019-03-17] MEDS: PRINIVIL PO SCH (08:11)
[2019-03-17] MEDS: PRILOSEC PO SCH (08:12)
[2019-03-17 08:27] LABS: AGAP 18; ALBUMIN 3.3 g/dL (3.5-5.0); BUN 13 mg/dL (8-22); CALCIUM 8.5 mg/dL (8.8-10.2); CHLORIDE 102 mmol/L (98-107); COSMO 283; CREATININE 1.2 mg/dL (0.7-1.2); ESTIMATED GFR > 60; GLUCOSE 157 mg/dL (70-104); PHOSPHORUS 2.9 mg/dL (2.7-4.5); POTASSIUM 3.3 mmol/L (3.5-5.1); SODIUM 140 mmol/L (136-145); TCO2 20 mmol/L (25-35)
[2019-03-17] MEDS ORDERED: DUONEB (A & A) INH PRN (11:51)
--- NOTE | 2019-03-17 12:32 | Diag Imaging Result Doc PS360 ---
EXAM: CHEST-2 VIEWS HISTORY: suspected aspiration pna TECHNIQUE: Two views COMPARISON: 03/12/2018 FINDINGS: Poor inspiratory effort. The heart is mildly prominent. No pulmonary edema. No consolidation. No pleural effusions. There is a right-sided granuloma. There is a nasogastric tube in esophagus and stomach on the current exam. IMPRESSION: Mildly prominent heart. No pneumonia identified. Electronically signed by Nitesh Gillette 03/17/2019 12:29 PM
[2019-03-17] MEDS: VASOTEC IV SCH (12:46)
[2019-03-17] MEDS: PROTONIX IV SCH (12:47)
[2019-03-17] MEDS: NS 1,000 ML IV SCH (15:10)
[2019-03-17] MEDS: DUONEB (A & A) INH SCH ×3 (15:47→23:24)
[2019-03-17] MEDS: LOPRESSOR IV SCH (16:57)
--- NOTE | 2019-03-17 17:27 | PROGRESS NOTE ---
DATE: 03/17/2019 SUBJECTIVE: The patient started having projectile vomiting yesterday. We ordered an NG tube. Since then, his abdomen is less distended. He continues to complain of nausea. OBJECTIVE: Vital Signs: Temperature 98.2 degrees, heart rate 73, respiratory rate 16, blood pressure 203/83, O2 saturation 94% on room air. General Examination: This is a chronically ill- appearing 63-year-old male, lying in bed, with NG tube placed in no acute distress. Cardiovascular: S1, S2 heard. Tachycardic. No murmurs, gallops, or rubs noted. Respiratory: Coarse breath sounds noted all over both pulmonary millan anteriorly and posteriorly, No work of breathing or using accessory muscles. Abdomen: Soft, less distended in comparing with yesterday. Diffuse tenderness to palpation but there is no signs of peritoneal irritation. Extremities: No clubbing, cyanosis, or edema. Peripheral pulses present in both legs. Neurological: Exam patient has motor strength 5/5 in all extremities. No slurred speech noted. No facial droop noted. The patient has slow speech. LABORATORY DATA: White cell count 15.43, hemoglobin 11.0, hematocrit 33.7, platelets 272,000. BMP reveals potassium 3.3 with creatinine normal. ASSESSMENT AND PLAN: 1. Upper medulla inferior eve infarct and lacunar infarct in the left basal ganglia. There is reason why this patient was admitted to the hospital. Actually when he came he was complaining of generalized weakness but not able to provide more information. He is a poor historian. MRI of the brain did show that finding. Since then, patient is on aspirin 325 mg p.o. daily. We are still awaiting neurology consult. Physical therapy and outpatient therapy are working with this patient. The day before yesterday because he started having nausea and vomiting we ordered a CT of the head to see if there is any worsening stroke but that stroke is stable. 2. Tiny left lower lobe pneumonia. We will continue with Zosyn and Zyvox. White cell count is normal not requiring any oxygen supplementation. 3. Projectile vomiting. The abdomen x-ray was nonspecific. We decided to place a nasogastric tube. Now clinically the abdomen looks less distended. We are going to repeat the abdominal x-ray tomorrow and we are going to consult Gastroenterology and see what he thinks. 4. Schizophrenia. He has been on home medication but it will be difficult to continue with those considering that he is not able to take anything by mouth now. At this point, we will continue to monitor and provide medications for anxiety if needed. 5. Hypertension. At this point, considering the time frame we are not going to continue allowing permissive hypertension and considering his inability to take medication by mouth we will start Vasotec and metoprolol. We will continue to monitor. 6. Diabetes mellitus type 2. We will continue with sliding scale insulin. Accu-Chek before meals and also at bedtime. 7. Disposition. Because of this new finding, in the respiratory exam, I think he may have aspirated. We will do a chest x-ray. With this uncontrolled hypertension and with this projectile vomiting, we will transfer this patient to PVC unit and we will continue to monitor this patient closely. cc: Ramon Leonardo MD
--- NOTE | 2019-03-17 20:11 | CONSULTATION ---
DATE OF CONSULTATION: 03/17/2019 REASON FOR CONSULTATION: Stroke. HISTORY OF PRESENT ILLNESS: This is a 63-year-old, black male with history of hypertension, diabetes, hyperlipidemia, who presented and was admitted 5 days ago with altered mental status. History is from the patient, family and chart review. It looks as though he was seen on 03/10/2019 in the emergency department with complaints of weakness and discharged home. He said his symptoms got worse over the next day or so, and he re-presented. He had reported generalized weakness, slurred speech, difficulty with walking. No headache, chest pain or recent illness. No loss of consciousness. No falls. He did report having transient dizziness at the onset of his symptoms but that resolved quickly. Head CT on arrival did not show acute findings. MRI of the brain performed on 03/14/2019 showed acute infarct in the eve/medulla as well as a small lacunar infarct in the left basal ganglia. He reports no prior history of stroke or major neurologic event. PAST MEDICAL HISTORY: Hypertension, diabetes, hyperlipidemia, congestive heart failure. There was diagnosis of schizophrenia with mood disorder and insomnia I believe from [facility] in 2004. FAMILY HISTORY: Positive for stroke in his mother. SOCIAL HISTORY: He lives with his brother. No alcohol or illicits. He smoked in the distant past. ALLERGIES: Listed to sulfa and cephalexin. HOME MEDICATIONS: Include aspirin 81 mg daily. CURRENT MEDICATIONS: Reviewed in the chart. REVIEW OF SYSTEMS: Balance of 12 conducted and otherwise negative except that detailed in the HPI. PHYSICAL EXAMINATION: Vital Signs: Currently afebrile but has had intermittent fever, blood pressure today 170s to 203 systolic over 60s to 80s diastolic, pulse 70s, respirations 16, 93% on room air. Neurological: Mr. Bartholomew is supine in bed with head of bed elevated. He is awake alert and oriented. He has significant dysarthria. No language disturbance detected on brief bedside testing. Follows simple and complex commands. Left/right digit distinction preserved. Pupils are equal, round and reactive to bright light. Gaze is conjugate. Extraocular movements are full. Visual millan intact to direct confrontational testing. Face appears symmetric with equal activation. Facial sensation reported intact to pinprick and symmetric including the forehead. Tongue is midline. I could not visualize the palate well. He can hear. On motor exam, tone appears equal and normal in limbs. Deltoid is 4- to 4/5 bilaterally, triceps 4/5 bilaterally, biceps 4 to 4+ out of 5 bilaterally. Outside Laborer strengths are weak bilaterally. He has a difficult time extending the fingers bilaterally. In the lower extremities, hip flexors are 4- to 4/5 bilaterally, slightly worse on the left, knee flexion 4/5 bilaterally, slightly worse on the left. Knee extensors are 4+ to 5 bilaterally. I could not get him to participate well with dorsiflexion and plantar flexion. Plantar response is downgoing bilaterally. No clonus. He reports intact and symmetric sensation to pinprick bilaterally. He reports intact vibratory sense bilaterally. It was difficult for him to perform finger to nose I believe due to weakness. It was slow and steady and accurate. DIAGNOSTICS: Head CT, noncontrast on admission: No acute findings. MRI of the brain personally reviewed showing acute infarct in the lower eve and upper medulla and also mention of very small lacunar infarct in the left basal ganglia. There is an area of encephalomalacia on the left barnett radiata extending down into the left internal capsular and basal ganglia region. A repeat head CT on 03/15/2019 did not show acute findings. Laboratory data reviewed in the chart. White count elevated at 15.4. Platelets normal. Sodium normal. BUN and creatinine normal. Blood sugars in mid 100s to 230s. Abdomen x-ray: The possibility of gastroparesis or gastric outlet obstruction cannot be excluded. CT of the chest, abdomen and pelvis showing fatty infiltration of the liver. Colonic diverticulosis. ASSESSMENT AND PLAN: A 63-year-old male with multiple vascular risk factors presenting with ischemic stroke in the pontine medullary region and also 1 very small area in the left basal ganglia region. There is also chronic encephalomalacia seen in the region of the left barnett radiata and internal capsule. Agree with stroke workup as you are doing to include transthoracic echocardiogram, and I would also include MRA studies of the head and neck. Agree with increasing the aspirin as you have done. Continue with risk factor modification. PT, OT and ST. It has been several days since the onset of his symptoms so I think we can work to bring his blood pressure down though I would avoid hypotension. Thank you for the consultation. cc: Eden Floyd MD
[2019-03-17] MEDS: ABILIFY PO SCH (20:32)
[2019-03-17] MEDS: LOVENOX SUBQ SCH (20:58)
[2019-03-18] MEDS: ZOSYN 3.375 GM in NS 50 ML IV SCH ×5 (00:37→22:02)
[2019-03-18] MEDS: VASOTEC IV SCH ×3 (00:37→22:02)
[2019-03-18] MEDS: LOPRESSOR IV SCH ×5 (00:40→22:02)
[2019-03-18] MEDS: NS 1,000 ML IV SCH (02:46)
[2019-03-18] MEDS: DUONEB (A & A) INH SCH ×6 (03:44→22:54)
[2019-03-18] MEDS: PROTONIX IV SCH ×2 (05:42→06:22)
[2019-03-18] MEDS: HUMALOG SUBQ SCH ×4 (06:22→23:29)
[2019-03-18 08:02] LABS: BASO# 0.02 X1000 (0.0-0.2); BASO% 0.1 % (0.0-0.8); EOS# 0.28 X1000 (0.0-0.7); EOS% 1.8 % (0.0-10.0); HEMOGLOBIN 11.2 g/dL (14.0-18.0); IMM GRAN# 0.15 X1000 (0.0-0.04); LYMPH# 1.68 X1000 (1.2-3.4); LYMPH% 10.7 % (20.5-51.1); MCH 29.1 PG (27-31); MCHC 32.9 g/dL (33-37); MCV 88.3 FL (81-99); MONO# 1.65 X1000 (0.11-0.59); MONO% 10.5 % (1.7-9.3); MPV 11.2 FL (7.4-10.4); NEUT# 11.99 X1000 (1.4-6.5); NEUT% 75.9 % (42.2-75.2); PLT 314 X1000 (130-400); RBC 3.85 XMIL (4.7-6.1); RDW 13.9 % (11.5-14.5); WBC 15.77 X1000 (4.8-10.8)
[2019-03-18] MEDS: FLOMAX PO SCH ×2 (08:29→22:17)
[2019-03-18] MEDS: ZYVOX 600 MG/D5W 600 MG/300 ML IVPB IV SCH ×2 (08:31→20:02)
[2019-03-18] MEDS: ASPIRIN PO SCH (08:34)
[2019-03-18 08:53] LABS: AGAP 18; ALBUMIN 3.4 g/dL (3.5-5.0); BUN 15 mg/dL (8-22); CALCIUM 8.9 mg/dL (8.8-10.2); CHLORIDE 101 mmol/L (98-107); COSMO 284; CREATININE 1.1 mg/dL (0.7-1.2); ESTIMATED GFR > 60; GLUCOSE 163 mg/dL (70-104); PHOSPHORUS 3.6 mg/dL (2.7-4.5); POTASSIUM 3.2 mmol/L (3.5-5.1); SODIUM 140 mmol/L (136-145); TCO2 21 mmol/L (25-35)
--- NOTE | 2019-03-18 10:59 | PROGRESS NOTE ---
DATE: 03/18/2019 SUBJECTIVE: Yesterday, after we placed an NG tube, he is not having any more episodes of projectile vomiting. He reports not feeling nauseated as he was yesterday, but complaining of mild abdominal pain. OBJECTIVE: Vital Signs: Temperature 98.1 degrees, heart rate 72, respiratory rate 22, blood pressure 189/77, and O2 saturation 98% on room air. General: This is a chronically ill-appearing 63-year-old male lying in bed with an NG tube placed in no acute distress. Cardiovascular: S1 and S2 heard. Tachycardic, but no murmurs, gallops, or rubs noted. Respiratory: Coarse breath sounds noted all over both pulmonary millan anterior and posteriorly. No work of breathing or using accessory muscles. Abdomen: Soft, less distended comparing with yesterday. Diffuse tenderness to palpation, but there are no signs of peritoneal irritation. Extremities: No clubbing, cyanosis, or edema. Peripheral pulses present in both legs. Neurological: Patient is awake, alert, and moves 4 extremities. No slurred speech. No facial droop noted. LABORATORY DATA: White cell count 15.77, hemoglobin 11.2, hematocrit 34.0, and platelets 314,000. BMP still pending. ASSESSMENT AND PLAN: 1. Upper medulla inferior eve infarct and lacunar infarct in the left basal ganglia stable. No new neurological symptoms. The patient continues to be on aspirin. Considering that this stroke has happened many days ago, we are not going to allow permissive hypertension for this patient, and we will continue to treat elevated blood pressure. This morning blood pressure has been 180 so we will continue with Vasotec and metoprolol that at this point, we will increase to 7.5 mg every 6 hours schedule. Neurology is following this patient. We will follow recommendations. 2. Tiny left lower lobe pneumonia. We will continue with Zosyn and Zyvox. Today, is day #6 of treatment. 3. Projectile vomiting. Abdominal x-ray was nonspecific. Abdominal examination was better after we placed an NG tube. We have requested a GI consultation to see what else we can do for this patient. 4. Schizophrenia. We will continue home medications. 5. Hypertension. As mentioned before, blood pressure is elevated. We will continue with Vasotec and metoprolol. 6. Diabetes mellitus type 2. We will continue with sliding scale insulin. Accu-Chek before meals and also at bedtime. 7. Disposition. At this point, we will continue to monitor this patient closely. cc: Ramon Leonardo MD
--- NOTE | 2019-03-18 14:34 | GASTROENTEROLOGY CONSULTATION ---
DATE: 03/18/2019 REASON FOR CONSULTATION: Recurrent projectile nausea. HISTORY OF PRESENT ILLNESS: Mr. Bartholomew is a 63-year-old, male with a history of hypertension, diabetes, congestive heart failure, and asthma, who was admitted to the hospital on 03/12/2019. He presented to the emergency department complaining of generalized weakness, slurred speech, and inability to walk. Previously, before 03/12/2019, the patient had gone to the [place] ED for the same complains, but was discharged home. Unable to gather much history from the patient. The patient's brother is at the bedside, and he was also not able to provide any extensive history and present illness of the patient. Most of the history was gathered from the medical records. According to the brother, he has denied that the patient had any flu-like symptoms, but he mentioned that his blood sugars have been elevated. Upon assessing the patient, he is able to move his extremities, but unable to open his wrist. The patient's speech is very slurred and slow. He gave a positive nod when asked about abdominal pain and headache. History is limited secondary to dysarthria. He is able to say that his N/V started after presentation and that he has been unable to tolerate PO. PAST MEDICAL HISTORY: Hypertension, type 2 diabetes, asthma, congestive heart failure. PAST SURGICAL HISTORY: Back surgery. ALLERGIES: The patient is allergic to sulfa and cephalexin. SOCIAL HISTORY: The patient lives with his brother. He is a past smoker. He has denied any alcohol or illicit drug use. FAMILY HISTORY: His mom had a stroke. HOME MEDICATIONS: Aripoprazole 5 mg 1 tablet at bedtime, lisinopril 20 mg 1 tablet daily, metformin 500 mg 1 tablet twice a day, metoprolol 50 mg 1 tablet twice a day, Remeron 15 mg 1 tablet at bedtime, naproxen 500 mg 1 tablet twice a day, amlodipine 10 mg 1 tablet daily, Cymbalta 30 mg 1 capsule daily, Flomax 0.4 mg 1 capsule twice a day, and vitamin D3 one capsule twice a day. REVIEW OF SYSTEMS: As per HPI. Otherwise, a 12-point review of systems is negative. PHYSICAL EXAMINATION: Vital Signs: Temperature 99.0, pulse 71, respirations 24, blood pressure 175/72, oxygen saturation 94% on room air. The patient's weight is 141 pounds, BMI is 25.4 kg/m2. General: The patient is alert, oriented x2. Speech is slurred and slow. HEENT: Pale conjunctivae. No icterus. PERRL. Neck: Supple. Lungs: Clear to auscultation in the anterior millan. Cardiovascular: Regular rate and rhythm. Abdomen: Soft, tender, nondistended. Active bowel sounds heard in all 4 quadrants. Extremities: No clubbing, no cyanosis, no edema. Pedal pulses 2+ present bilaterally. Neurologic: He is alert and oriented x2, with slow and slurred speech. IMAGING AND LABORATORY DATA: WBCs of 15.77, RBCs 3.85, hemoglobin is 11.2, hematocrit is 34.0, platelet count is 314,000. Sodium is 140, potassium is 3.2, chloride is 101, carbon dioxide is 21, anion gap is 18, BUN is 15, creatinine is 1.1, calcium is 8.9, glucose is 105, phosphorus is 3.6, albumin is 3.4. His HIV antibody was nonreactive. IMAGING: The patient had a head CT done on 03/12/2019 showed no hemorrhage, but small old left infarct. The head CT on 03/15/2018 showed chronic ischemic changes. No evidence of acute intracranial disease. The patient's chest, abdomen, and pelvis CT on 03/12/2018 showed a tiny left lower infiltrate in the chest, and his abdomen and pelvis showed fatty infiltration of the liver, colonic diverticulosis, and fat-filled umbilical hernia. The patient's abdominal x-ray on 03/16/2019 has shown possibility of gastroparesis or gastric outlet obstruction, chest x-ray on 03/17/2019 showed mildly prominent heart. No pneumonia identified. The patient's brain MRI on 03/14/2019 had shown that he has some acute infarct in the upper medulla/inferior eve, minimal lacunar infarct in the left basal ganglia. Brain MRI on 03/18/2019 showed stable MRI of the brain, subacute infraction in the pontomedullary junction. Brain MRA on 03/18/2019 showed questionable stenosis in the left posterior cerebral artery. Neck MRA on 03/18/2019 showed no definate abnormality. IMPRESSION AND PLAN: Ischemic Stroke Nausea and Vomiting Abdominal pain Type II diabetes Generalized weakness Hypokalemia PLAN: Mr. Bartholomew is a 63-year-old male with a history of hypertension, diabetes, congestive heart failure, current stroke. GI has been consulted for his nausea and vomiting. The patient has been complaining of generalized abdominal pain all over. We plan to do an EGD tomorrow. Talked to the neurologist, and she was OK with us doing the EGD as long as the patient's blood pressure is stable. The patient is currently on antibiotics, Zosyn and Zyvox. He is receiving IV fluids, normal saline at 75 mL. For his nausea and vomiting, he is on Zofran and Phenergan as needed. The patient is on a GI prophylaxis, Protonix 40 mg IV daily. Further plan of care will be based on the EGD findings. We have discussed the risks, benefits, and alternatives of the procedure with the patient's family. Family acknowledges understanding of the plan of care. This plan was discussed with Dr. Quintana. Thank you for your consult. Please call us for any further questions or concerns. Dictated by DWAYNE Dumont for Frank Quintana MD Physician Attestation I have seen and examined the patient. I have discussed and reviewed the note by Vikki RICE and agree with findings and plan as documented. In brief, Mr. West Bartholomew is a 63 year old man with schizophrenia, HTN, HLD, NIDDM2, and CHF was admitted with acute upper stroke of the upper medulla/inferior eve, lacuna, and left basal ganglia who presents to GI service with intractable N/V and abdominal pain. He is on antibiotics for pneumonia. He is on antiemetics and PPI IV. CT abdomen was unrevealing for etiology of symptoms. LFTs on presentation were normal. He has mild anemia without overt bleeding. A couple days ago KUB showed gaseous distension of stomach. Therefore NGT was placed with minimal bilious fluid coming out. He continues to have symptoms in spite of this. Will plan diagnostic EGD on Sun given abdominal pain. However, his acute brain stem stroke may be contributing to symptoms as well. Will follow with you. MTDD
--- NOTE | 2019-03-18 16:30 | Diag Imaging Result Doc PS360 ---
EXAM: MRI BRAIN W/O CONTRAST 03/18/2019 HISTORY: follow up. TECHNIQUE: T1 sagittal and axial, T2, FLAIR, DWI axial and coronal gradient echo. COMMENT: The current study is compared to the previous examination of 03/14/2019. There is no evidence of bleed or abnormal extra-axial fluid collection. The restricted diffusion present previously in the pontomedullary junction region has not changed significantly in appearance since the previous study. There is a small punctate area of restricted diffusion in the area of the genu of the internal capsule which has not changed. Increased T2-weighted signal intensity in the periventricular white matter and internal capsule region on the left has not changed significantly. There is no evidence of mass effect. IMPRESSION: Stable MRI of the brain. Subacute infarction in the pontomedullary junction. Electronically signed by Ramiro Lopez 03/18/2019 4:28 PM
--- NOTE | 2019-03-18 16:32 | Diag Imaging Result Doc PS360 ---
EXAM: MRA BRAIN W/O CONTRAST 03/18/2019 HISTORY: stroke TECHNIQUE: 3-D [id number] COMMENT: There is stenosis in the left posterior cerebral artery. Otherwise there is no evidence of major branch occlusion or aneurysm. The anterior communicating artery is patent. IMPRESSION: Questionable stenosis in the left posterior cerebral artery. This is not directly related to the findings on the MRI. Electronically signed by Ramiro Lopez 03/18/2019 4:30 PM
--- NOTE | 2019-03-18 16:34 | Diag Imaging Result Doc PS360 ---
EXAM: MRA NECK W/CONT 03/18/2019 HISTORY: stroke TECHNIQUE: 3-D contrast enhanced MRA COMMENT: Both vertebral arteries are apparently patent although the proximal left vertebral is not well demonstrated. The internal carotid arteries are unremarkable. IMPRESSION: No definite abnormality. Electronically signed by Ramiro Lopez 03/18/2019 4:31 PM
--- NOTE | 2019-03-18 19:05 | PROGRESS NOTE ---
DATE: 03/18/2019 SUBJECTIVE: No major overnight events. The patient has no specific complaints. I heard verbal reports of recurrent projectile vomiting but I do not see it documented in the chart since 03/15/2019. Patient himself says he had some vomiting yesterday but not today. He is afebrile today. Blood pressure 175/72, pulse 70s. Respirations 24, Mr. Flores is supine and CC Mr. Bartholomew is supine in bed, resting with eyes closed. He opens his eyes in regards when I call his name. He is attentive. He knows he is at [facility], he knows the year, knows why he is here. He stated Obama for the president but later agreed on Trump. He was able to name some objects for me. He has some significant dysarthria and it is hard to understand him. He followed some simple commands. Strength testing was again performed today and is unchanged from yesterday. Pupils are equal, round, and reactive to bright light. Gaze is conjugate and forward. Extraocular movements are full. He blinks to threat in all millan. Face is symmetric with equal activation. He can hear. Tongue is midline. LABS: Reviewed in the chart. White count 15.7. Normal BUN and creatinine. ASSESSMENT AND PLAN: Recent acute ischemic stroke in the pontomedullary region and one very small area in the left basal ganglia region. Again chronic encephalomalacia also seen in the region of the left barnett radiata extending down into the internal capsular region. I agree with full stroke workup. I did not see MRA and I have ordered that now and also will repeat MRI of the brain given the reports of projectile vomiting to be sure there isn't any worsening. It has been about a week since symptom onset so again I do not think we need to goal permissive hypertension at this time. Current aim would be to gradually reduce the blood pressure while avoiding hypotension. With that in mind, if he needs to have an EGD performed, I think you can proceed with caution and minimize risk of hypotension provided repeat imaging does not show any worsening. cc: Eden Floyd MD
[2019-03-18] MEDS: ABILIFY PO SCH (21:02)
[2019-03-18] MEDS: LOVENOX SUBQ SCH (22:02)
[2019-03-19] MEDS: APRESOLINE IV PRN (00:24)
[2019-03-19] MEDS: LOVENOX SUBQ SCH ×2 (00:35→20:46)
[2019-03-19] MEDS: TYLENOL PR PRN ×2 (01:01→11:56)
[2019-03-19] MEDS: LOPRESSOR IV SCH ×5 (02:03→20:44)
[2019-03-19] MEDS: DUONEB (A & A) INH SCH ×6 (03:25→23:44)
[2019-03-19] MEDS: VASOTEC IV SCH ×3 (04:02→23:39)
[2019-03-19] MEDS: NS 1,000 ML IV SCH ×3 (04:20→16:59)
[2019-03-19] MEDS: ZOSYN 3.375 GM in NS 50 ML IV SCH (04:20)
[2019-03-19] MEDS: HUMALOG SUBQ SCH ×4 (06:00→23:51)
[2019-03-19] MEDS: PROTONIX IV SCH (06:01)
[2019-03-19] MEDS ORDERED: XYLOCAINE-MPF 2% ONE (07:39)
[2019-03-19] MEDS ORDERED: DIPRIVAN 1% ONE (07:39)
[2019-03-19] MEDS: ZYVOX 600 MG/D5W 600 MG/300 ML IVPB IV SCH ×2 (07:51→20:46)
[2019-03-19] MEDS: FLOMAX PO SCH ×3 (09:16→23:40)
[2019-03-19] MEDS: ASPIRIN PO SCH (09:16)
--- NOTE | 2019-03-19 09:42 | Diag Imaging Result Doc PS360 ---
EXAM: CHEST-2 VIEWS 03/19/2019 HISTORY: suspected aspiration pna TECHNIQUE: AP and lateral chest COMMENT: There is a granuloma in the right middle lobe. There is an NG tube with its tip in the stomach. There is ill-defined opacity present in the right lower lobe. The opacification of the left lower lobe which was demonstrated on 03/17/2019 has improved. IMPRESSION: Improved left lower lobe pneumonia. Electronically signed by Ramiro Lopez 03/19/2019 9:41 AM
[2019-03-19] MEDS ORDERED: SODIUM BICARBONATE 8.4% ONE (09:51)
--- NOTE | 2019-03-19 09:57 | ENDOSCOPY OPERATIVE NOTE ---
[facility] ENDOSCOPY OPERATIVE NOTE , EGD PROCEDURE REPORT EXAM DATE: 03/19/2019 PATIENT NAME: West Bartholomew MR#: [id number] BIRTHDATE: 1955 ATTENDING: Frank Quintana MD STATUS: inpatient [employer]: INDICATIONS: The patient is a 63 yr old male here for an EGD due to nausea, vomiting, and abdominal pain.; admitted with acute CVA PROCEDURE PERFORMED: EGD w/ biopsy MEDICATIONS: Per Anesthesia ESTIMATED BLOOD LOSS: None CONSENT: The patient understands the risks and benefits of the procedure and understands that these r isks include, but are not limited to: sedation, allergic reaction, infection, perforation and/or bleeding. Alternative means of evaluation and treatment include, among others: physical exam, x-rays, and/or surgical intervention. The patient elects to proceed with this endoscopic procedure. DESCRIPTION OF PROCEDURE: During pre-op preparation period all mechanical and medical equipment was c hecked for proper function. Hand hygiene and appropriate measures for infection prevention was taken. After the risks, benefits and alternatives of the procedure were thoroughly explained, Informed consent was verified, confirmed and timeout was successfully executed by the treatment team. The patient was anesthetized with topical anesthesia and the [id number] ([id number]) endoscope was introduced through the mouth and advanced to the second portion of the duoden um. Retroflexion was performed in the stomach and revealed no abnormalities. The gastroscope was then slowly withdraw n and removed. The patient's toleration of the procedure was excellent. ESOPHAGUS: The mucosa of the esophagus appeared normal. The z-line was noted at 40cm from the incis ors. The z-line appeared normal. STOMACH: Moderate gastritis (inflammation) was found in the gastric fundus and gastric body likely fr om NGT trauma. A biopsy was performed using cold forceps. Sample sent for histology. DUODENUM: The duodenum was normal. ADVERSE EVENTS: There were no complications. IMPRESSIONS: ESOPHAGUS: The mucosa of the esophagus appeared normal. The z-line was noted at 40cm from the incis ors. The z-line appeared normal. STOMACH: Moderate gastritis (inflammation) was found in the gastric fundus and gastric body likely fr om NGT trauma. A biopsy was performed using cold forceps. Sample sent for histology. DUODENUM: The duodenum was normal. RECOMMENDATIONS: 1. Await biopsy results 2. Continue PPI and prn antiemetics 3. Recommend speech evaluation for dysphagia 4. Will follow with you REPEAT EXAM: Frank Quintana MD eSigned: Frank Quintana MD 03/19/2019 9:56 AM CC: CPT CODES: 73439 Upper gastrointestinal endoscopy including esophagus, stomach, and either the du odenum and/or jejunum as appropriate; with biopsy, single or multiple ICD CODES: 787.02 Nausea 787.03 Vomiting,unspecified 789.07 Abdominal pain,generalized The ICD and CPT codes recommended by this software are interpretations from the data that the [facility] staff has captured with the software. The verification of the translation of this report to the ICD and CPT co jerome and modifiers is the sole responsibility of the health care institution and practicing physician where this report was generated. [employer] will not be held responsible for the validity of the ICD and CPT codes i ncluded on this report. A assumes no liability for data contained or not contained herein. CPT is a registered tra demark of the [employer]. PATIENT NAME: West Bartholomew MR#: [id number]
--- NOTE | 2019-03-19 09:59 | PROGRESS NOTE ---
DATE: 03/19/2019 SUBJECTIVE: The patient as per nursing staff is breathing a little more worse. Tachypneic. He started having low-grade temperature 100.2 degrees. He continues to be nauseated. He continues to have abdominal pain. OBJECTIVE: Vital Signs: Temperature 100.2 degrees, heart rate 99, respiratory rate 18, blood pressure 181/82, and O2 saturation 96% on room air. General: This is a chronically ill-appearing 63-year-old male lying in bed in mild respiratory distress with NG tube placed with greenish secretions coming out. Cardiovascular: S1, S2 heard. Tachycardic but no murmurs, gallops, or rubs noted. Respiratory: Coarse breath sound noted all over both pulmonary millan anterior and posteriorly, the same in comparing with yesterday. There is no work of breathing or using accessory muscles. Abdomen: Soft. Less distended in comparing with yesterday. Diffuse tenderness to palpation mostly noted in the epigastric area. There are no signs of peritoneal irritation. Bowel sounds are present. No organomegaly. Extremities: No clubbing, cyanosis, or edema. Peripheral pulses present in both legs. Neurological: Patient is awake and alert. No slurred speech. No facial droop noted. LABORATORY DATA: Pending at time of my dictation. ASSESSMENT AND PLAN: 1. Sepsis secondary to left lower lobe pneumonia. Patient has been on Zosyn and Zyvox since admission. Today is day #7 on above medication. Patient continues to have elevated white cell count. There is also a low-grade fever. At this point, we will order another blood culture. Patient is tachypneic over the last 3 days. We will consult Dr. Stapleton of infectious disease. We have ordered stat labs. I think at this point, we will send this patient to the PVC unit for better monitoring. 2. Upper medulla/inferior eve infarct, and a pulmonary infarct in the left basal ganglia stable. Neurology is following this patient. They recommend to control blood pressure better. The patient will have an EEG as per Neurology recommendations. We will see what it shows. 3. Projectile vomiting. Abdominal x-ray was nonspecific. Patient continues to be nauseated with abdominal pain. Gastroenterology has been consulted. They plan to do the EGD today, we will see what it shows. 4. Uncontrolled hypertension. Patient is on Vasotec 1.25 mg IV q.12 hours, and also metoprolol 7.5 q.6. We will increase to 10 mg. continue to monitor this patient closely. 5. Schizophrenia. We will continue home medications. 6. Diabetes mellitus type 2. We will continue with sliding scale insulin and Accu-Chek's before meals and also at bedtime. DISPOSITION: We will continue to monitor this patient closely. We will transfer him to PVC unit today. cc: Ramon Leonardo MD
--- NOTE | 2019-03-19 10:02 | Diag Imaging Result Doc PS360 ---
EXAM: ABDOMEN FLAT/UPRIGHT 03/19/2019 HISTORY: pain TECHNIQUE: Flat and upright abdomen COMMENT: There is an NG tube with its tip in the fundus of the stomach. There is some colonic and small bowel gas without evidence of dilatation. There is no evidence of organomegaly or mass. Compared to 03/16/2019 there has been no appreciable change. IMPRESSION: Nonspecific abdomen. Electronically signed by Ramiro Lopez 03/19/2019 10:00 AM
[2019-03-19] MEDS: MERREM 2 GM in NS 100 ML IV SCH ×2 (11:52→18:46)
[2019-03-19 12:41] LABS: BASO# 0.05 X1000 (0.0-0.2); BASO% 0.3 % (0.0-0.8); EOS# 0.08 X1000 (0.0-0.7); EOS% 0.5 % (0.0-10.0); HEMATOCRIT 34.9 % (42.0-52.0); HEMOGLOBIN 11.4 g/dL (14.0-18.0); IMM GRAN# 0.19 X1000 (0.0-0.04); IMM GRAN% 1.1 % (0.0-0.5); LYMPH% 9.4 % (20.5-51.1); MCH 28.9 PG (27-31); MCHC 32.7 g/dL (33-37); MCV 88.6 FL (81-99); MONO# 1.66 X1000 (0.11-0.59); MONO% 9.7 % (1.7-9.3); MPV 10.9 FL (7.4-10.4); NEUT# 13.46 X1000 (1.4-6.5); PLT 351 X1000 (130-400); RBC 3.94 XMIL (4.7-6.1); RDW 14.2 % (11.5-14.5); WBC 17.04 X1000 (4.8-10.8)
--- NOTE | 2019-03-19 13:07 | PROGRESS NOTE ---
DATE: 03/19/2019 LOCATION: Room 308. Mr. Bartholomew just returned from EGD. He continues sedated, but is recovering. He appeared intermittently awake and alert. Speech is a little bit dysarthric. I did not perform a detailed neurology exam. Attentive at the bedside reports no vomiting in the last few days. Chart shows systolic blood pressures 160s to 190s over the last few days. Heart rate has ranged 70s to 100s over the last few days. MRA of the brain and neck were unremarkable. MRI of the brain showed stable findings, nothing significantly changed compared to 03/14/2019 scan. I do not have any urgent suggestion from Neurology standpoint. Would continue treating blood pressure cautiously, follow clinically. Further plans will depend on his clinical course. Thank you for asking Neurology to see Mr. Bartholomew. cc: MD MEI Wilcox III
[2019-03-19 13:13] LABS: BANDS 2 % (0-1); HYPOCHROM 1+; LYMPHS 10 % (21-51); MONO 10 % (1-9); SEGS 77 % (42-75)
[2019-03-19 13:14] LABS: LARGE PLATELETS OCCASIONAL
[2019-03-19 13:29] LABS: AGAP 18; BUN 21 mg/dL (8-22); CHLORIDE 102 mmol/L (98-107); COSMO 293; CREATININE 1.2 mg/dL (0.7-1.2); ESTIMATED GFR > 60; GLUCOSE 256 mg/dL (70-104); POTASSIUM 3.2 mmol/L (3.5-5.1); SODIUM 141 mmol/L (136-145); TCO2 21 mmol/L (25-35)
--- NOTE | 2019-03-19 19:03 | INFECTIOUS DISEASE CONSULT REP ---
DATE: 03/19/2019 CONCLUSION: The patient has a left lower lobe pneumonia. It is getting better according to chest x-ray; however, the patient continues to have leukocytosis and fever. RECOMMENDATIONS: I am going to continue with Zyvox but stop Zosyn and instead put the patient on meropenem. DISCUSSION: The patient was unable to supply a history. His was there, but she is from him, and she did not know much about his medical history. The patient was initially seen at [place] with an altered mental status, but he was discharged. The patient was very weak in both lower extremities. He came to the emergency room at [facility]. He was found to have a leukocytosis. His blood glucose was elevated. He had an MRI, which showed a subacute infarct of the brain. [place] [address], hemoglobin 11.2, platelet count 314,000, creatinine is 1.1. GFR is greater than 60. Blood and urine cultures are negative. Chest x-ray shows improvement in the left lower lobe, as mentioned above; however, the patient's white count remains elevated, and he continues to have fever. PAST MEDICAL HISTORY: Positive for: 1. Hypertension. 2. Diabetes. 3. Congestive heart failure. 4. Asthma. 5. Hyperlipidemia. 6. Congestive heart failure. He has been evaluated at [facility], and he was diagnosed as having schizophrenia along with mood disorder and insomnia. PAST SURGICAL HISTORY: Positive for back surgery done in 2004. ALLERGIES: The patient is allergic to sulfa and cephalexin. SOCIAL HISTORY: The patient lives with his brother. He is from his . He does not drink alcoholic beverages or use illicit drugs. FAMILY HISTORY: Was not able to be obtained. PHYSICAL EXAMINATION: Vital signs: Temperature is 100.2 degrees, pulse 96 respirations 18, blood pressure is 181/82. Patient weighs 147 pounds. General: This is an ill-appearing middle-aged male. He is in no acute distress. Head/eyes/ears/nose/throat: No drainage was noted from the nose or ears. I could not get a good look in the patient's mouth. Neck: No pain with movement. Lungs: Bilateral rhonchi. Cardiovascular: Heart rate is regular. Abdomen: Soft and nontender. Neurologic: The patient's eyes were open. He did not follow request to move his extremities. He does not have a tremor. Integument: No rash noted. Thank you for the consult. cc: Jonathon Stapleton MD
[2019-03-19] MEDS ORDERED: ATIVAN IV ONE (20:19)
[2019-03-19] MEDS: PHENERGAN IV PRN (20:39)
[2019-03-19] MEDS: ABILIFY PO SCH ×2 (20:46→23:40)
[2019-03-20] MEDS: APRESOLINE IV PRN ×2 (01:10→15:08)
[2019-03-20] MEDS: LOPRESSOR IV SCH ×4 (02:36→21:31)
[2019-03-20] MEDS: DUONEB (A & A) INH SCH ×6 (03:30→23:00)
[2019-03-20] MEDS: MERREM 2 GM in NS 100 ML IV SCH ×3 (03:38→20:21)
--- NOTE | 2019-03-20 05:18 | EKG Report ---
Test Performed on : 03/20/2019 02:40:18 AM Test Reason : a fib Blood Pressure : / mmHG Vent. Rate : 120 BPM Atrial Rate : 119 BPM P-R Int : 000 ms QRS Dur : 080 ms QT Int : 428 ms P-R-T Axes : 000 028 059 degrees QTc Int : 604 ms Critical Test Result: Long QTc Accelerated Junctional rhythm. Nonspecific ST and T wave abnormality Abnormal ECG When compared with ECG of 20-MAR-2019 02:39, (Unconfirmed) Junctional rhythm. has replaced Sinus rhythm. Confirmed by Po STERLING, Sinan Smith ([id number]) on 03/30/2019 10:24:28 PM
[2019-03-20 06:04] LABS: BASO# 0.04 X1000 (0.0-0.2); BASO% 0.2 % (0.0-0.8); EOS# 0.08 X1000 (0.0-0.7); EOS% 0.4 % (0.0-10.0); HEMATOCRIT 33.7 % (42.0-52.0); HEMOGLOBIN 10.8 g/dL (14.0-18.0); IMM GRAN# 0.21 X1000 (0.0-0.04); IMM GRAN% 1.1 % (0.0-0.5); LYMPH% 9.8 % (20.5-51.1); MCH 28.5 PG (27-31); MCV 88.9 FL (81-99); MONO# 2.03 X1000 (0.11-0.59); MONO% 11.1 % (1.7-9.3); MPV 10.8 FL (7.4-10.4); NEUT# 14.19 X1000 (1.4-6.5); NEUT% 77.4 % (42.2-75.2); PLT 349 X1000 (130-400); RBC 3.79 XMIL (4.7-6.1); RDW 14.5 % (11.5-14.5); WBC 18.35 X1000 (4.8-10.8)
[2019-03-20] MEDS: NS 1,000 ML IV SCH (06:13)
--- NOTE | 2019-03-20 06:29 | Diag Imaging Result Doc PS360 ---
EXAM: CHEST-1 VIEW HISTORY: woserning lung sounds with posible aspiration TECHNIQUE: Single view COMPARISON: 03/19/2019 FINDINGS: Poor inspiratory effort. The heart is not enlarged. The vessels are not distended. There are no infiltrates. No effusion identified. There are granuloma in the lower right lung. IMPRESSION: No pneumonia identified. Electronically signed by Nitesh Gillette 03/20/2019 6:27 AM
[2019-03-20 06:32] LABS: AGAP 20; BUN 16 mg/dL (8-22); CALCIUM 8.5 mg/dL (8.8-10.2); CHLORIDE 102 mmol/L (98-107); COSMO 290; CREATININE 1.1 mg/dL (0.7-1.2); ESTIMATED GFR > 60; GLUCOSE 164 mg/dL (70-104); POTASSIUM 2.9 mmol/L (3.5-5.1); SODIUM 143 mmol/L (136-145); TCO2 21 mmol/L (25-35)
[2019-03-20] MEDS: PROTONIX IV SCH (06:37)
[2019-03-20] MEDS: SODIUM CHLORIDE 0.9% INJ SCH (06:38)
[2019-03-20] MEDS: HUMALOG SUBQ SCH ×4 (06:49→21:34)
[2019-03-20] MEDS ORDERED: POTASSIUM CHLORIDE 60 MEQ in NS 500 ML IV ONE (08:46)
[2019-03-20] MEDS: ZYVOX 600 MG/D5W 600 MG/300 ML IVPB IV SCH ×2 (09:08→21:31)
[2019-03-20] MEDS: FLOMAX PO SCH ×2 (09:18→21:32)
[2019-03-20] MEDS: ASPIRIN PO SCH (09:18)
[2019-03-20] MEDS: PERICOLACE PO SCH ×2 (09:18→21:32)
[2019-03-20] MEDS: PRINIVIL PO SCH ×2 (10:08→21:31)
--- NOTE | 2019-03-20 11:04 | GASTROENTEROLOGY PROGRESS NOTE ---
DATE: 03/20/2019 SUBJECTIVE: Mr. Bartholomew is 63 year old male, resting in bed. His speech is slurred, slow but understandable. He was able to tell his name and his date of and how he was feeling. He has denied any nausea or vomiting today. The patient is on pureed diet and nectar liquids. OBJECTIVE: Vital Signs: Temperature 99.2 degrees, pulse 105, respirations 21, blood pressure is 167/92, oxygen saturation 97% on 2 L nasal cannula. The patient's weight is 145 pounds. BMI is 25.0 kg/m squared. General: He is alert, oriented x2. Slurred speech and difficulty speaking. HEENT: Pale conjunctivae. No icterus. PERRL. Neck: Supple. Lungs: Clear to auscultation. Cardiovascular: Patient is tachycardic and tachypneic. Abdomen: Soft, mildly distended, nontender. Active bowel sounds heard in all 4 quadrants. Extremities: No clubbing, no cyanosis, no edema. Pedal pulses 2+ present bilaterally. Neurologic: Alert and oriented x2 with slow and slurred speech. LABORATORY: WBCs are 18.35, RBCs 3.79, hemoglobin is 10.8, hematocrit is 33.7, platelet count is 349,000. Sodium 143, potassium 2.9, chloride is 102, carbon dioxide 21, anion gap 20, BUN 16, creatinine 1.1, glucose 164, calcium is 8.5. The patient's chest x-ray today showed no pneumonia. Abdominal x-ray yesterday showed nonspecific abdomen, IMPRESSION AND PLAN: CVA Nausea and vomiting Abdominal pain Gastritis Anemia PLAN: Mr. Bartholomew is a 63-year-old male with a history of hypertension, diabetes, congestive heart failure and current stroke. GI has been following him for his nausea and vomiting. We did an EGD yesterday, findings were normal esophagus, Stomach had moderate gastritis in the gastric fundus and the gastric body, likely from the NG tube trauma. Biopsy was taken. Duodenum was normal. A speech evaluation was ordered yesterday and the speech therapist has suggested patient be on aspiration precaution and can have pureed diet and nectar liquid. His nausea and vomiting has been resolved, he is on antiemetic, Zofran and phenegran as needed. The patient is receiving IV fluids normal saline at 75 mL. He is on GI prophylaxis, Protonix 40 mg IV. The patient is on antibiotics Merrem and Zyvox and for his hypokalemia he is on potassium chloride 60 mEq at 132.5 mL 1 time dose today per PCP. His hemoglobin and hematocrit today is 10.8 and 33.7. The patient is hemodynamically stable. We will continue to monitor the patient and follow the plan of care per PCP. This plan was discussed with Dr. Brennan. Please call us for any further questions or concerns. Dictated by DWAYNE Dumont for Miguel Brennan MD cc: Miguel Brennan MD I have seen and examined the patient myself and I agree with the above plan of care. Please call us with any further questions. MTDD
--- NOTE | 2019-03-20 11:19 | PROGRESS NOTE ---
DATE: 03/20/2019 SUBJECTIVE: The patient is still somehow tachypneic. No fever noted during the last 24 hours. Yesterday morning, his temperature was 100.2 degrees. The patient has dysarthria. I am still not able to understand what he is saying. OBJECTIVE: Vital Signs: Temperature 99.2, heart rate 105, respiratory rate 21, blood pressure 167/92, O2 saturation 97% on 2 L nasal cannula. General: This is a chronically ill-appearing, 63- year-old, male, lying in bed in no acute distress. Cardiovascular: S1, S2 heard. Tachycardic, but no murmurs, gallops, or rubs noted. Respiratory: Good breath sounds noted in both pulmonary bases anterior and posteriorly, the same in comparing with yesterday. There is no work of breathing or using accessory muscles. Abdomen: Soft, less distended in comparing with yesterday. She is tender to palpation, mostly noted in the epigastric area. There are no signs of peritoneal irritation. Bowel sounds present. No organomegaly. Extremities: No clubbing, cyanosis, or edema. Peripheral pulses present in both legs. Neurological: The patient is awake, alert. No slurred speech. No facial droop noted. LABORATORY DATA: White cell count 18.35, hemoglobin 10.8, hematocrit 33.7, platelets 349,000. BMP reveals potassium 2.9. Normal renal function. Calcium 8.5. ASSESSMENT AND PLAN: 1. Sepsis secondary to left lower lobe pneumonia. The patient continues to be on Zyvox, day #8 of this medication. Because of persistent fever and leukocytosis, Dr. Stapleton from Infectious Disease has been consulted, and switched Zyvox to meropenem, day #2 of treatment. At this point, no overt fever noted. White cell count is still elevated. Will continue to monitor CBC daily. 2. 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 That condition is stable. Neurology is following this patient. They mentioned that they are going to do an electroencephalogram. Will see what it shows. 3. Projectile vomiting. The patient is being evaluated by Gastroenterology. The did an endoscopy and did not find anything that can justify his symptoms. There is some gastritis, most likely secondary to nasogastric tube placement. At this point, will continue with the same management. 4. Uncontrolled hypertension. The patient is on Vasotec 1.25 mg intravenously every 12 hours, and metoprolol 10 mg every 6 hours. The patient is able to take medications by mouth now, so will add hydralazine to his current treatment. 5. Schizophrenia. Will continue home medications. 6. Diabetes mellitus type 2. Will continue with sliding scale insulin and Accu-Chek before meals and also at bedtime. 7. Disposition. Will continue to monitor this patient closely. Will continue to monitor this patient in the PCV unit. cc: Ramon Leonardo MD
[2019-03-20] MEDS: APRESOLINE PO SCH ×2 (12:39→16:32)
--- NOTE | 2019-03-20 14:37 | PROGRESS NOTE ---
DATE: 03/20/2019 SUBJECTIVE: Mr. Bartholomew continues sluggish on my rounds. OBJECTIVE: With noxious stimulation, he was awake, alert, following simple commands inconsistently. When stimulation was withdrawn, he seemed to be sleeping. Neck is supple. He is afebrile this morning with temperature recorded 100.2 about 24 hours ago. DIAGNOSTIC DATA: Workup includes brain MRI done on 03/14/2019 with and without contrast and 03/18/2019 brain MRI without contrast. These show an area of acute brainstem infarction at the pontomedullary junction. On my view, this appears to be mostly midline and to the right. Brain MRA and cervical MRA were unremarkable. I have reviewed the EGD report. IMPRESSION AND PLAN: 1. 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 This could account for some dysarthria, dysphagia, possibly vomiting. There may also be relatively mild left hemiparesis, which has been inconsistent and difficult to document on clinical exam. 2. I remain concerned about his level of consciousness. Yesterday, I attributed that to recent sedation for the esophagogastroduodenoscopy. I wonder if he might have a baseline cognitive impairment syndrome which would predispose him to protracted somnolence following anesthesia and/or with a toxic or metabolic disturbance. 3. I do not have urgent suggestion from Neurology standpoint. We might consider EEG depending on his clinical course. I hope he will improve with continued treatment for pneumonia and medical problems. Thanks for asking Neurology to see Mr. Bartholomew. cc: MD MEI Wilcox III
[2019-03-20] MEDS: ZOFRAN IV PRN (17:39)
[2019-03-20] MEDS: LOVENOX SUBQ SCH (21:31)
[2019-03-20] MEDS: ABILIFY PO SCH (21:32)
[2019-03-20] MEDS: TYLENOL PR PRN (21:53)
[2019-03-21] MEDS: APRESOLINE IV PRN (01:23)
[2019-03-21] MEDS: MERREM 2 GM in NS 100 ML IV SCH ×3 (02:53→21:41)
[2019-03-21] MEDS: LOPRESSOR IV SCH ×3 (02:53→13:22)
[2019-03-21] MEDS: NS 1,000 ML IV SCH ×2 (02:53→17:08)
[2019-03-21] MEDS: DUONEB (A & A) INH SCH ×3 (03:00→11:15)
[2019-03-21 06:14] LABS: BASO# 0.05 X1000 (0.0-0.2); BASO% 0.2 % (0.0-0.8); EOS# 0.07 X1000 (0.0-0.7); EOS% 0.3 % (0.0-10.0); HEMATOCRIT 32.9 % (42.0-52.0); HEMOGLOBIN 10.7 g/dL (14.0-18.0); IMM GRAN# 0.14 X1000 (0.0-0.04); IMM GRAN% 0.6 % (0.0-0.5); LYMPH# 1.88 X1000 (1.2-3.4); LYMPH% 7.8 % (20.5-51.1); MCH 29.2 PG (27-31); MCHC 32.5 g/dL (33-37); MCV 89.6 FL (81-99); MONO# 1.43 X1000 (0.11-0.59); MPV 10.7 FL (7.4-10.4); NEUT# 20.43 X1000 (1.4-6.5); NEUT% 85.1 % (42.2-75.2); PLT 330 X1000 (130-400); RBC 3.67 XMIL (4.7-6.1); RDW 14.7 % (11.5-14.5)
[2019-03-21] MEDS: PROTONIX IV SCH (06:26)
[2019-03-21] MEDS: SODIUM CHLORIDE 0.9% INJ SCH (06:26)
[2019-03-21] MEDS: HUMALOG SUBQ SCH ×4 (06:26→21:58)
[2019-03-21 06:33] LABS: AGAP 17; BUN 14 mg/dL (8-22); CALCIUM 8.9 mg/dL (8.8-10.2); CHLORIDE 108 mmol/L (98-107); COSMO 297; CREATININE 1.2 mg/dL (0.7-1.2); ESTIMATED GFR > 60; GLUCOSE 235 mg/dL (70-104); POTASSIUM 3.3 mmol/L (3.5-5.1); SODIUM 145 mmol/L (136-145); TCO2 20 mmol/L (25-35)
[2019-03-21] MEDS ORDERED: CALMOSEPTINE OINTMENT TOP PRN (07:18)
[2019-03-21 08:17] LABS: LYMPHS 8 % (21-51); MONO 6 % (1-9); SEGS 86 % (42-75)
[2019-03-21] MEDS: ZYVOX 600 MG/D5W 600 MG/300 ML IVPB IV SCH ×2 (08:35→22:23)
[2019-03-21] MEDS: PERICOLACE PO SCH ×2 (08:36→21:45)
[2019-03-21] MEDS: PRINIVIL PO SCH ×2 (08:36→21:45)
[2019-03-21] MEDS: FLOMAX PO SCH ×2 (08:36→21:45)
[2019-03-21] MEDS: ASPIRIN PO SCH (08:36)
[2019-03-21] MEDS: APRESOLINE PO SCH ×3 (08:36→16:26)
--- NOTE | 2019-03-21 11:22 | GASTROENTEROLOGY PROGRESS NOTE ---
DATE: 03/21/2019 SUBJECTIVE: Mr. Bartholomew is a 63-year-old male sitting in bed. The patient's speech has been worsening, unable to understand what he was saying. OBJECTIVE: Vital Signs: Temperature 99 degrees, pulse 109, respirations 20, blood pressure 164/84, oxygen saturation 97%. The patient is on 2 L nasal cannula. His weight is 142 pounds. BMI is 24.6 kg/m sq. General: The patient is alert, oriented x1. Speech is slurred and difficult to understand. HEENT: Pale conjunctivae. No icterus. PERRL. Neck: Supple. Lungs: Clear to auscultation. Cardiovascular: Patient is tachycardic. Abdomen: Soft, mildly distended, nontender. Active bowel sounds heard in all 4 quadrants. Extremities: No clubbing, no cyanosis, no edema. Pedal pulses 2+ and present bilaterally. Neurologic: Alert and oriented x1 with slurred speech. LABORATORY DATA: WBCs 24, RBC 3.67, hemoglobin is 10.7, hematocrit is 32.9, platelet count is 330,000. Sodium 145, potassium 3.3, chloride 108, carbon dioxide 20, anion gap is 17, BUN 14, creatinine 1.2, glucose 235, calcium is 8.9. The patient's chest x-ray yesterday showed no pneumonia identified. IMPRESSION: 1. Nausea and vomiting. 2. Abdominal pain. 3. Stroke. 4. Leukocytosis. 5. Hypokalemia. 6. Generalized weakness. 7. Type II diabetes. PLAN: Mr. Bartholomew is a 63-year-old male with a history of hypertension, diabetes, congestive heart failure, and current stroke. GI is following him for his nausea and vomiting. The patient's nausea, vomiting and abdominal pain is improving. The patient's WBCs today is 24. He is being followed by Infectious Disease, and the patient is on antibiotic with Zyvox and meropenem per Infectious Disease. The patient is on IV fluids with normal saline at 75 mL. He is on Zofran and Phenergan for his nausea and vomiting. He is receiving GI prophylaxis Protonix 40 mg IV daily. The patient's diabetes is managed by insulin Humalog as per sliding scale. The patient is on aspiration precautions, pureed diet and thickened liquids. We will continue to monitor the patient and provide supportive care to the patient and follow the plan of care for PCP, Neurologist, and ID. This plan was discussed with Dr. Quintana. Please call us for any further questions or concerns. Dictated by DWAYNE Dumont for Frank Quintana MD MTDD
[2019-03-21 12:11] LABS: URINE SOURCE CATH
[2019-03-21 12:15] LABS: BILIRUBIN URINE NEGATIVE (NEGATIVE); BLOOD URINE MODERATE (NEGATIVE); COLOR YELLOW; GLUCOSE URINE >1000 mg/dL (NEGATIVE); KETONE URINE TRACE mg/dL (NEGATIVE); LEUKOCYTES URINE NEGATIVE (NEGATIVE); NITRITE URINE NEGATIVE (NEGATIVE); PROTEIN URINE 200 mg/dL (NEGATIVE); TURBIDITY URINE CLEAR (CLEAR); UR EPITHELIAL CELLS <10 /HPF (<10); URINE BACTERIA NEGATIVE /HPF; URINE RBC TNTC /HPF (<10); URINE WBC <10 /HPF (<10); UROBILINOGEN URINE 3 mg/dL (NORMAL)
--- NOTE | 2019-03-21 12:21 | Diag Imaging Result Doc PS360 ---
EXAM: SINUSES MENDIOLA VIEW ONLY 03/21/2019 HISTORY: sinusitis TECHNIQUE: Mendiola view COMMENT: The study is somewhat suboptimal technically due to positioning as the patient was difficult. There is a questionable air-fluid level in each of the maxillary sinuses. The ethmoid and frontal sinuses are clear. IMPRESSION: Questionable maxillary sinusitis. Electronically signed by Ramiro Lopez 03/21/2019 12:19 PM
--- NOTE | 2019-03-21 12:56 | Diag Imaging Result Doc PS360 ---
EXAM: BA SWALLOW W/VIDEO SPEECH THER INDICATION: evaluate diet and po intake TECHNIQUE: COMPARISON: None. FINDINGS: Upon swallowing thin liquid barium contrast, there is incomplete closure of the larynx. However, no aspiration was appreciated. There was a marked delay of the swallowing reflex with pudding consistency barium and thick liquid barium. There was excessive pooling in the valleculae before swallowing was initiated. There was better motility with a solid bolus. No cricopharyngeus hypertrophy is appreciated. Limited views of the distal esophagus showed delayed passage of contrast through the GE junction but no significant tertiary contractions were appreciated. IMPRESSION: 1.Marked delay of initiation of swallowing reflex with barium of pudding and thick liquid consistency. 2.Incomplete laryngeal closure with barium of thin liquid consistency but no aspiration was witnessed. 3.Delayed passage of barium through the esophageal junction and into the stomach. 4.Please see speech pathology report for full details. Electronically signed by Martinez Cabral 03/21/2019 12:53 PM
[2019-03-21] MEDS: POTASSIUM CHLORIDE 20 MEQ/SWI 20 MEQ/100 ML IVPB IV SCH ×2 (13:20→15:16)
--- NOTE | 2019-03-21 14:08 | PROGRESS NOTE ---
DATE: 03/21/2019 Mr. Bartholomew was reported to be a little bit more alert, talking, with slight improvement in speech, and better able to swallow earlier this morning. He is on his way now for swallowing study. I do not have any new thoughts or new suggestions from Neurology standpoint today, nothing to add to comments in yesterday's note. If his level of alertness continues to improve, I think we can continue to follow clinically. If not, we might consider EEG electively. Eventually may need to repeat brain imaging Thanks for asking Neurology to see Mr. Bartholomew. cc: MD MEI Wilcox III
[2019-03-21] MEDS ORDERED: LOPRESSOR PO ONE ×2 (15:02→15:30)
[2019-03-21] MEDS: XOPENEX NEB INH SCH ×2 (15:42→21:09)
[2019-03-21] MEDS: ATROVENT NEB INH SCH ×2 (15:42→21:09)
[2019-03-21] MEDS ORDERED: ATROVENT NEB INH SCH (16:00)
[2019-03-21] MEDS: TYLENOL PR PRN (17:08)
--- NOTE | 2019-03-21 17:14 | PROGRESS NOTE ---
DATE: 03/21/2019 SUBJECTIVE: Patient has no major complaints, but he is nonverbal because of his stroke. He does look a little agitated. Family reports he is having a lot of hiccuping. OBJECTIVE: Blood pressure 164/84, heart rate 101, respiratory rate 15, temperature 99 degrees. He is 97 on 2 L.Cardiovascular: Tachy. Pulmonary: Occasional rhonchi. No wheezes. Gastrointestinal: Soft, nontender, nondistended. Bowel sounds are positive. LABORATORY DATA: White count is up to 24, hemoglobin and hematocrit 10 and 32, platelets 330,000. Potassium 3.3, glucose 271. Jxn-hhmeqbhm-lu-count red blood cells. PROBLEM LIST: 1. 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 The patient is nonverbal. Neurology is following. Followup note from today, feels like he is improving. His swallow study was not very reassuring. They recommended a GI consult, which has already been obtained, and he has already had an EGD which was pretty unremarkable, so I am not really sure what we are looking at there. In any case, we will continue supportive measures. 2. Left lower lobe pneumonia, sepsis. He is on Zyvox day 9, and he is on meropenem at least day 2. 3. Hypertension. I think presumably we can work on improving his blood pressure. He was admitted on the . He is fairly tachycardic, so I think I am going to add some p.o. Lopressor and see how he does. 4. Disposition. He has a bed available apparently at rehab, so we will continue to monitor closely. If his white count can improve and overall he is improved, then we will anticipate rehab transfer on Sunday, but not today. cc: Attila Tinsley MD
--- NOTE | 2019-03-21 17:18 | INFECTIOUS DISEASE PROGRESS NO ---
DATE: 03/21/2019 PRESENT ILLNESS: Mr. Bartholomew has a continued leukocytosis and fever. He did have a left lower lobe pneumonia, however that has resolved based on his chest x-ray from yesterday. MEDICATIONS: Today is day 9 of Zyvox 600 mg IV every 12 hours and day 2 of meropenem 2 g IV every 8 hours. PHYSICAL EXAMINATION: Vital Signs: Temperature is 99 degrees, pulse rate 109 respiratory rate 20, blood pressure 164/84 O2 saturation is 97% on 2 L nasal cannula. General: This is a chronically ill-appearing, middle-aged gentleman. He is sitting up in bed, currently in no acute distress. HEENT: Atraumatic, normocephalic. Oral mucous membranes are pink and moist. Conjunctivae are pale. Neck: Supple. Trachea is midline. Cardiovascular: Heart rate and rhythm are regular and fast, sinus tachycardia on the monitor. Respiratory: Lung sounds have scattered wheezing in the upper and middle lobes. Diminished in the bases. No work of breathing is noted. Abdomen: Soft, and somewhat distended, nontender with hyperactive bowel sounds. Integumentary: Skin is warm and dry. Neurologic: He is awake, alert and answers questions appropriately. He is able to move all 4 extremities with severe weakness noted. LABORATORY AND X-RAY: Today his white count is 24, hemoglobin. 10.7, platelet count 330,000. Creatinine is 1.2. Estimated GFR is greater than 60. Blood cultures x2 and urine culture on this admission have all shown no growth. Chest x-ray yesterday showed no pneumonia identified. ASSESSMENT AND PLAN: Mr. Bartholomew has a leukocytosis and fever both of which continue, with an increase in his leukocytosis. There is no pneumonia at this point. Previous urine cultures were negative but we will recheck a UA and C&S. His blood cultures from 2 days ago have shown no growth after 48 hours. The patient did blow some purulent drainage out of his nose. We have collected that and sent it to the lab. He is also complaining of a sore throat. However visualizing his oral vestibule is very difficult. We will go ahead and get sinus films to rule out sinusitis. He is receiving Zyvox and meropenem both of which we will continue at this time. These plans have been discussed with and recommended by Dr. Stapleton. COMORBIDITIES: For Mr. Bartholomew include CVA on this admission, diabetes mellitus, congestive heart failure, asthma and schizophrenia. Dictated by DWAYNE Gambino for Jonathon Stapleton MD cc: Jonathon Stapleton MD [facility]
[2019-03-21] MEDS: ABILIFY PO SCH (21:45)
[2019-03-21] MEDS: LOVENOX SUBQ SCH (21:52)
[2019-03-22] MEDS: MERREM 2 GM in NS 100 ML IV SCH ×3 (02:58→20:18)
[2019-03-22] MEDS: HUMALOG SUBQ SCH ×5 (06:10→21:44)
[2019-03-22] MEDS: PROTONIX IV SCH (06:10)
[2019-03-22] MEDS: SODIUM CHLORIDE 0.9% INJ SCH (06:10)
[2019-03-22 06:40] LABS: BASO# 0.03 X1000 (0.0-0.2); BASO% 0.1 % (0.0-0.8); EOS# 0.21 X1000 (0.0-0.7); HEMATOCRIT 31.3 % (42.0-52.0); HEMOGLOBIN 10.1 g/dL (14.0-18.0); IMM GRAN% 0.5 % (0.0-0.5); LYMPH% 9.3 % (20.5-51.1); MCH 28.9 PG (27-31); MCHC 32.3 g/dL (33-37); MCV 89.4 FL (81-99); MONO# 1.21 X1000 (0.11-0.59); MONO% 5.6 % (1.7-9.3); MPV 10.7 FL (7.4-10.4); NEUT% 83.5 % (42.2-75.2); PLT 325 X1000 (130-400); RDW 14.7 % (11.5-14.5); WBC 21.45 X1000 (4.8-10.8)
[2019-03-22 06:56] LABS: AGAP 14; BUN 13 mg/dL (8-22); CALCIUM 8.4 mg/dL (8.8-10.2); CHLORIDE 102 mmol/L (98-107); COSMO 281; CREATININE 1.1 mg/dL (0.7-1.2); ESTIMATED GFR > 60; GLUCOSE 166 mg/dL (70-104); POTASSIUM 3.3 mmol/L (3.5-5.1); SODIUM 139 mmol/L (136-145); TCO2 23 mmol/L (25-35)
[2019-03-22] MEDS ORDERED: VITAMIN D PO SCH (09:00)
[2019-03-22] MEDS ORDERED: LOPRESSOR PO SCH (09:00)
[2019-03-22] MEDS: FLOMAX PO SCH ×2 (09:15→21:43)
[2019-03-22] MEDS: LOPRESSOR PO SCH ×2 (09:15→21:43)
[2019-03-22] MEDS: VITAMIN D PO SCH (09:15)
[2019-03-22] MEDS: APRESOLINE PO SCH ×3 (09:15→16:03)
[2019-03-22] MEDS: PRINIVIL PO SCH ×2 (09:15→21:43)
[2019-03-22] MEDS: ATROVENT NEB INH SCH ×3 (09:28→21:28)
[2019-03-22] MEDS: XOPENEX NEB INH SCH ×3 (09:28→21:28)
[2019-03-22] MEDS: ASPIRIN PO SCH (09:41)
[2019-03-22] MEDS: NORVASC PO SCH ×2 (09:41→21:43)
[2019-03-22] MEDS: PERICOLACE PO SCH ×2 (09:42→21:43)
[2019-03-22] MEDS: ZYVOX 600 MG/D5W 600 MG/300 ML IVPB IV SCH ×2 (10:34→21:43)
[2019-03-22] MEDS: APRESOLINE IV PRN (10:43)
--- NOTE | 2019-03-22 12:13 | PROGRESS NOTE ---
DATE: 03/22/2019 SUBJECTIVE: Patient is resting comfortably. He had spiked a fever yesterday afternoon of 100.2 degrees at 4 p.m. Since then no fever reported. OBJECTIVE: Vital Signs: Temperature 98.5 degrees, heart rate 101, respiratory 25, blood pressure 186/84, O2 saturation 98% 2 L nasal cannula. General: This is a chronically ill-appearing, 63- year-old, -[place] male, lying in bed in no acute distress. Cardiovascular: S1, S2 heard. Tachycardic but no murmurs, gallops, or rubs noted. Respiratory: Coarse breath sounds noted in both pulmonary bases, anterior and posterior, better in comparing with a couple days ago. The patient is not having work of breathing or using accessory muscles. Abdomen: Soft. Definitely less abdominal distention. Mild tenderness to palpation in the epigastric area, but no signs of peritoneal irritation. Bowel sounds present. No organomegaly. Extremities: No clubbing, cyanosis, or edema. Peripheral pulses present in both legs. Neurological: The patient is awake, alert. No slurred speech. No facial droop noted. LABORATORY DATA: White cell count 21.45, hemoglobin 10.1, hematocrit 31.3, platelets 325,000. Potassium 3.3. Normal renal function. ASSESSMENT AND PLAN: 1. Sepsis secondary to left lower lobe pneumonia. Patient continues to spike fever, the last one was still less than 24 hours. White cell count continues to be elevated. Patient is on Zyvox and meropenem. As per Dr. Stapleton' recommendation, we will continue with the same management. 2. Upper medulla and inferior eve infarct, and lacunar infarct in the left basal ganglia. Condition is stable. Neurology following this patient. Patient have already a rehab bed for him. 3. Uncontrolled hypertension. Currently this patient is on hydralazine 25 mg p.o. 3 times per day, plus lisinopril 20 mg p.o. b.i.d. What we are going to do is to add amlodipine 5 mg p.o. b.i.d. to his current treatment. 4. Schizophrenia. We will continue home medications. 5. Diabetes mellitus type 2. We will continue with sliding scale insulin. Accu-Chek before meals and also at bedtime. 6. Disposition. The patient is feeling better. We will continue to monitor this patient closely over the weekend on if continues to improve, on Sunday we will prepare to send him to a rehab facility. cc: Ramon Leonardo MD
[2019-03-22] MEDS: NS 1,000 ML IV SCH (16:15)
[2019-03-22] MEDS: LOVENOX SUBQ SCH (21:43)
[2019-03-22] MEDS: ABILIFY PO SCH (21:43)
[2019-03-23] MEDS: MERREM 2 GM in NS 100 ML IV SCH ×3 (04:08→21:00)
[2019-03-23] MEDS: SODIUM CHLORIDE 0.9% INJ SCH (06:12)
[2019-03-23] MEDS: NS 1,000 ML IV SCH (06:12)
[2019-03-23] MEDS: PROTONIX IV SCH (06:12)
[2019-03-23] MEDS: HUMALOG SUBQ SCH ×4 (06:27→21:00)
[2019-03-23] MEDS: LOPRESSOR PO SCH ×2 (09:08→21:01)
[2019-03-23] MEDS: APRESOLINE PO SCH ×3 (09:08→17:28)
[2019-03-23] MEDS: NORVASC PO SCH ×2 (09:08→21:01)
[2019-03-23] MEDS: VITAMIN D PO SCH (09:08)
[2019-03-23] MEDS: PRINIVIL PO SCH ×2 (09:08→21:01)
[2019-03-23] MEDS: PERICOLACE PO SCH ×2 (09:08→21:00)
[2019-03-23] MEDS: ZYVOX 600 MG/D5W 600 MG/300 ML IVPB IV SCH ×2 (09:08→19:09)
[2019-03-23] MEDS: FLOMAX PO SCH ×2 (09:08→21:01)
[2019-03-23] MEDS: ASPIRIN PO SCH (09:08)
[2019-03-23] MEDS: XOPENEX NEB INH SCH ×3 (09:40→22:17)
[2019-03-23] MEDS: ATROVENT NEB INH SCH ×3 (09:40→22:17)
[2019-03-23 10:34] LABS: BASO# 0.04 X1000 (0.0-0.2); BASO% 0.2 % (0.0-0.8); EOS# 0.07 X1000 (0.0-0.7); EOS% 0.3 % (0.0-10.0); HEMATOCRIT 33.5 % (42.0-52.0); HEMOGLOBIN 10.8 g/dL (14.0-18.0); IMM GRAN# 0.11 X1000 (0.0-0.04); IMM GRAN% 0.5 % (0.0-0.5); LYMPH# 1.39 X1000 (1.2-3.4); LYMPH% 6.7 % (20.5-51.1); MCH 28.6 PG (27-31); MCHC 32.2 g/dL (33-37); MCV 88.9 FL (81-99); MONO# 0.95 X1000 (0.11-0.59); MONO% 4.6 % (1.7-9.3); MPV 10.3 FL (7.4-10.4); NEUT# 18.05 X1000 (1.4-6.5); NEUT% 87.7 % (42.2-75.2); PLT 356 X1000 (130-400); RBC 3.77 XMIL (4.7-6.1); RDW 14.4 % (11.5-14.5)
[2019-03-23 11:00] LABS: WBC 20.61 X1000 (4.8-10.8)
[2019-03-23 11:01] LABS: BANDS 1 % (0-1); LYMPHS 7 % (21-51); MONO 5 % (1-9); SEGS 87 % (42-75)
[2019-03-23 11:03] LABS: ANISOCYTOSIS 2+; HYPOCHROM 1+; MICROCYTOSIS 2+
[2019-03-23 11:14] LABS: AGAP 13; BUN 10 mg/dL (8-22); CALCIUM 8.7 mg/dL (8.8-10.2); CHLORIDE 107 mmol/L (98-107); COSMO 284; CREATININE 1.2 mg/dL (0.7-1.2); ESTIMATED GFR > 60; GLUCOSE 133 mg/dL (70-104); POTASSIUM 3.3 mmol/L (3.5-5.1); SODIUM 142 mmol/L (136-145); TCO2 22 mmol/L (25-35)
--- NOTE | 2019-03-23 14:37 | GASTROENTEROLOGY PROGRESS NOTE ---
DATE: 03/22/2019 SUBJECTIVE: Mr. Bartholomew is a 63-year-old male sitting in bed. The patient has slurred speech, unable to understand what he was saying, but he did complain about abdominal pain. OBJECTIVE: Vital Signs: Temperature 98.5 degrees, pulse is 122, respirations 23, blood pressure 188/93, oxygen saturation 97% on 2 L nasal cannula. The patient's weight is 145 pounds. BMI is 25.0 kg/m2. General: The patient is alert, oriented x1. Speech is slurred and difficult to understand. HEENT: Pale conjunctivae. No icterus. PERRL. Neck: Supple. Lungs: Clear to auscultation. Cardiovascular: Patient is tachycardic. Abdomen: Soft. Mildly distended, tender. Active bowel sounds heard in all 4 quadrants. Extremities: No clubbing. No cyanosis. No edema. Pedal pulses 2+ present bilaterally. Neurological: Alert, oriented x3. LABORATORY DATA: WBCs are 21.45, RBCs 3.50, hemoglobin 10.1, hematocrit is 31.3, platelet count is 325,000. Sodium 139, potassium 3.3, chloride 102, carbon dioxide 23, anion gap 14, BUN 13, creatinine is 1.1, glucose is 166, calcium is 8.4. The patient has a sinus Mendiola view x-ray which showed questionable maxillary sinusitis. IMPRESSION: 1. Nausea and vomiting. 2. Abdominal pain. 3. Stroke. 4. Leukocytosis. 5. Hypokalemia. 6. Generalized weakness. 7. Type 2 diabetes. PLAN: Mr. Bartholomew is a 63-year-old male with a history of hypertension, diabetes, congestive heart failure, and current stroke. GI is following for his nausea and vomiting. The patient's nausea and vomiting has been improved but today he is complaining of abdominal pain. The patient's WBC today is 21.45 which has slightly trended downward. The patient is receiving antibiotics, Zyvox and Merrem per Infectious Disease. He is on antiemetics, Zofran and Phenergan for his nausea and vomiting. His diabetes is managed by Humalog as per sliding scale. The patient is on IV fluids, normal saline at 75 mL/h. Patient had a barium swallow evaluation done and it showed marked delay in initiation of swallowing reflex with pudding and thick liquid, incompete laryngeal closure with thin liquid but no aspiration, and delayed passage of barium through the esophageal junction and into the stomach. We will continue to monitor the patient, provide supportive care and follow the plan of care per PCP, Neurologist, and Infectious Disease. This plan was discussed with Dr. Hickey. Please call us for any further questions or concerns. Dictated by DWAYNE Dumont for Mary Hickey MD cc: Mary Hickey MD [facility]
--- NOTE | 2019-03-23 15:50 | PROGRESS NOTE ---
DATE: 03/23/2019 INTERVAL HISTORY: Patient still complaining of sore throat. Has stable difficulty with speech. No further purulent drainage from his nose noted currently. No further fevers in the last 24 hours. No acute events. REVIEW OF SYSTEMS: Negative except as per interval history. LABS: WBC 20.6, hemoglobin 10.8, hematocrit 33.5, platelets 356,000. Sodium 142, potassium 3.3, BUN 10, creatinine 1.2, glucose 133 to 217. VITALS: T-max 99.3 degrees, pulse 119, respirations 27, blood pressure 159/95, O2 saturation 94% on 2 L by nasal cannula. PHYSICAL EXAMINATION: General: No acute distress. Chronically ill-appearing. HEENT: Normocephalic, atraumatic. No visible drainage from nose. Moist mucous membranes. Cardiovascular: Mildly tachycardic but regular, no murmurs noted. Pulmonary: Slightly coarse throughout but essentially clear bilaterally. Abdomen: Soft, nontender. Bowel sounds positive. Extremities: Peripheral pulses intact. No clubbing, cyanosis. Neurologic: The patient with difficulty getting words out but no facial asymmetry. Pupils equal, round, reactive to light. No new focal deficits. Psychiatric: Awake, alert, cooperative. ASSESSMENT AND PLAN: 1. Pneumonia essentially resolved at this point. Infectious Disease following the patient. He was having continued fevers but none the last 24 hours. It was thought to have sinusitis as likely cause of his fevers. Was having some purulent drainage from the nose, but do not note any today. Awaiting final antibiotic recommendations from Infectious Disease. 2. Sinusitis. On antibiotics as above. No further fevers. 3. Stroke. Patient with cerebrovascular accident affecting the brainstem and left basal ganglia. Has some dysarthria and intermittent mild left hemiparesis which is stable. Neurology with no new recommendations. 4. Hypertension, control still not ideal. Currently on Norvasc, scheduled and p.r.n. hydralazine and lisinopril. Will stop intravenous fluids and see if that has any effect but suspect we will need to add either diuretic or clonidine tomorrow if he remains elevated. 5. Schizophrenia, somnolence, unclear mental baseline. The patient has been a little bit somnolent intermittently during the hospitalization. Pretty awake today, although his difficulty with speech makes it difficult to fully evaluate orientation such as that. Based on previous notes, he does appear to be improved today. Likely no need for further intervention, but we will continue to monitor. DISPOSITION: Final antibiotic recommendations from Infectious Disease still pending. The patient no longer febrile. Appears to be tolerating diet and mental status somewhat improved. He may be able to go to rehab in the next 24 to 48 hours. [facility]
--- NOTE | 2019-03-23 19:43 | GASTROENTEROLOGY PROGRESS NOTE ---
DATE: 03/23/2019 SUBJECTIVE: Mr. Bartholomew is a 63-year-old male who is resting in bed complaining of throat pain and abdominal pain. The patient's speech is still slurred and difficult to understand. OBJECTIVE: Vital Signs: Temperature 98.6 degrees, pulse is 119, respirations 27, blood pressure 159/95, oxygen saturation 94% on 2 L nasal cannula. The patient's weight is 145 pounds. BMI is 25.0 kg/m2. General: Patient is alert, oriented x2. Slurred speech. HEENT: Pale conjunctivae. No icterus. PERRL. Neck: Supple. Lungs: Coarse wheezing heard in the anterior millan. Cardiovascular: The patient is tachycardic and tachypneic. Abdomen: Soft, mildly distended, tender. Active bowel sounds heard in all 4 quadrants. Extremities: No clubbing, no cyanosis, no edema. Pedal pulses 2+ present bilaterally. Neurologic: Alert and oriented x2. LABS: WBCs at 20.61, RBCs 3.77, hemoglobin is 10.8, hematocrit is 33.5, platelet count is 356,000. Sodium 142, potassium 3.3, chloride 107, carbon dioxide 22, anion gap 13, BUN 10, creatinine is 1.2, glucose 133, calcium 8.7. IMPRESSION AND PLAN: 1. Nausea and vomiting. 2. Abdominal pain. 3. Stroke. 4. Leukocytosis. 5. Hypokalemia. 6. Generalized weakness. 7. Type 2 diabetes. PLAN: Mr. Bartholomew is a 63-year-old male with a history of hypertension, diabetes, congestive heart failure, and recent stroke. Gastroenterology has been following him for his nausea and vomiting. The patient's nausea and vomiting has improved, but the patient is still complaining of some abdominal pain and throat pain. His WBC today is 20.61. The patient is receiving antibiotic, Zyvox and Merrem for his leukocytosis per Infectious Disease. The patient is on antiemetic Zofran and Phenergan for his nausea and vomiting. His diabetes is managed by Humalog as per sliding scale. The patient is on gastrointestinal prophylaxis, Protonix 40 mg IV daily. We will continue to provide supportive care to the patient and follow the plan of care per primary care PCP, Neurologist and ID. This plan was discussed with Dr. Hickey. Please call us for any further questions or concerns. Dictated by DWAYNE Dumont for Mary Hickey MD cc: Mary Hickey MD [facility]
[2019-03-23] MEDS: ABILIFY PO SCH (21:00)
[2019-03-23] MEDS: LOVENOX SUBQ SCH (21:00)
[2019-03-24] MEDS: MERREM 2 GM in NS 100 ML IV SCH ×3 (04:49→21:24)
[2019-03-24 05:54] LABS: BASO# 0.02 X1000 (0.0-0.2); BASO% 0.1 % (0.0-0.8); EOS# 0.17 X1000 (0.0-0.7); EOS% 0.9 % (0.0-10.0); HEMATOCRIT 32.5 % (42.0-52.0); HEMOGLOBIN 10.3 g/dL (14.0-18.0); IMM GRAN# 0.09 X1000 (0.0-0.04); IMM GRAN% 0.5 % (0.0-0.5); LYMPH# 1.79 X1000 (1.2-3.4); LYMPH% 9.2 % (20.5-51.1); MCH 28.3 PG (27-31); MCHC 31.7 g/dL (33-37); MCV 89.3 FL (81-99); MONO# 0.93 X1000 (0.11-0.59); MONO% 4.8 % (1.7-9.3); MPV 10.5 FL (7.4-10.4); NEUT# 16.53 X1000 (1.4-6.5); NEUT% 84.5 % (42.2-75.2); PLT 366 X1000 (130-400); RBC 3.64 XMIL (4.7-6.1); RDW 14.5 % (11.5-14.5); WBC 19.53 X1000 (4.8-10.8)
[2019-03-24] MEDS: HUMALOG SUBQ SCH ×4 (06:10→22:04)
[2019-03-24] MEDS: SODIUM CHLORIDE 0.9% INJ SCH (06:11)
[2019-03-24] MEDS: PROTONIX IV SCH (06:11)
[2019-03-24 06:23] LABS: AGAP 13; BUN 13 mg/dL (8-22); CALCIUM 8.7 mg/dL (8.8-10.2); CHLORIDE 104 mmol/L (98-107); COSMO 284; CREATININE 1.3 mg/dL (0.7-1.2); ESTIMATED GFR > 60; GLUCOSE 184 mg/dL (70-104); POTASSIUM 2.9 mmol/L (3.5-5.1); SODIUM 140 mmol/L (136-145); TCO2 23 mmol/L (25-35)
[2019-03-24] MEDS: ZYVOX 600 MG/D5W 600 MG/300 ML IVPB IV SCH (08:10)
[2019-03-24] MEDS: FLOMAX PO SCH ×2 (08:10→21:24)
[2019-03-24] MEDS: APRESOLINE PO SCH ×3 (08:11→18:06)
[2019-03-24] MEDS: NORVASC PO SCH ×2 (08:11→21:23)
[2019-03-24] MEDS: ASPIRIN PO SCH (08:11)
[2019-03-24] MEDS: PERICOLACE PO SCH ×2 (08:11→21:23)
[2019-03-24] MEDS: PRINIVIL PO SCH ×2 (08:11→21:23)
[2019-03-24] MEDS: LOPRESSOR PO SCH ×2 (08:11→21:24)
[2019-03-24] MEDS: VITAMIN D PO SCH (08:11)
[2019-03-24] MEDS: ATROVENT NEB INH SCH ×3 (09:25→23:22)
[2019-03-24] MEDS: XOPENEX NEB INH SCH ×3 (09:25→23:22)
[2019-03-24] MEDS ORDERED: KLOR-CON PO ONE (10:36)
--- NOTE | 2019-03-24 11:25 | GASTROENTEROLOGY PROGRESS NOTE ---
DATE: 03/24/2019 SUBJECTIVE: Mr. Bartholomew is a 63-year-old, male. He was resting in bed. The patient has been complaining of abdominal pain. OBJECTIVE: Vital Signs: Temperature 98.4, pulse 108, respirations 24, blood pressure 174/66, oxygen saturation 97% on 2 L nasal cannula. The patient's weight is 145 pounds, BMI is 25.0 kg/m2. General: The patient is alert and oriented x3. His speech was much better today. HEENT: Pale conjunctivae. No icterus. PERRL. Neck: Supple. Lungs: Wheezing heard in the anterior upper lobes. Cardiovascular: The patient is tachycardic and tachypneic. Abdomen: Soft, mildly distended, tender. Active bowel sounds heard in all 4 quadrants. Extremities: No clubbing, no cyanosis, no edema. Pedal pulses 2+ present bilaterally. Neurological: Alert and oriented x3. LABORATORY DATA: WBCs are 19.53, RBCs 3.64, hemoglobin is 10.3, hematocrit is 32.5, platelet count is 366,000. Sodium 140, potassium 2.9, chloride 104, carbon dioxide 23, anion gap 13, BUN 13, creatinine is 1.3, glucose 184, calcium is 8.7. IMPRESSION AND PLAN: Nausea and vomiting CVA Leukocytosis Diabetes type II Abdominal pain Anemia Pneumonia- Likely Aspiration PLAN: Mr. Bartholomew is a 63-year-old, male with a history of hypertension, diabetes, congestive heart failure, and recent stroke. GI has been following him for his nausea and vomiting. The patient's nausea and vomiting has improved. He is on antiemetic, Zofran, and Phenergan for his nausea and vomiting. The patient is on Protonix 40 mg IV daily. The patient has not had a bowel movement yesterday or today. For his bowel regimen, he is on Dulcolax 10 mg SC suppository. Continue to watch CBC for now and transfuse as needed. We will continue to monitor him, and follow the plan of care per PCP. This plan was discussed with Dr. Brennan. Please call us for any further questions or concerns. Dictated by DWAYNE Dumont for Miguel Brennan MD cc: Miguel Brennan MD I have seen and examined the patient myself and I agree with the above plan of care. I have discussed the above plan of care with the patient and all questions were answered. Please call us with any further questions. MEI
--- NOTE | 2019-03-24 11:57 | PROGRESS NOTE ---
DATE: 03/24/2019 SUBJECTIVE: No major overnight events. Patient is complaining of stomach pain. He denies vomiting. He has been afebrile the last few days. Blood pressure is 150s to 170s systolic today. He has been tachycardic. Mr. Bartholomew is sitting up in bed with head of bed elevated. He is awake and alert when I enter the room. He tracks and regards. He is oriented. Follows simple commands consistently. He is severely dysarthric. Strength testing is unchanged from prior. Pupils are equal, round, and reactive. Gaze is conjugate. Ocular movements are full. Face appears symmetric with equal activation. LABORATORY: Reviewed in the chart. White count trending down at 19.5, today. Creatinine of 1.3. Blood sugars 130s to 180s. ASSESSMENT: Acute brainstem ischemic stroke. His level of consciousness seems improved today, when comparing to previous notes. His repeat imaging last week was stable. I would continue aspirin therapy. He may need a statin. Continue PT, OT and ST. cc: Eden Floyd MD MTDD
--- NOTE | 2019-03-24 13:56 | PROGRESS NOTE ---
DATE: 03/24/2019 SUBJECTIVE: The patient has no major complaints. OBJECTIVE: Vital Signs: Blood pressure 178/77, heart rate of 106, respiratory rate of 28, temperature 98.7 degrees, 95% on 2 L. Cardiovascular: Regular rate and rhythm. Pulmonary: Bilateral breath sounds. Clear to auscultation. Abdomen: Soft, nontender, nondistended. Bowel sounds are positive. LABORATORY DATA: White count 19, hemoglobin and hematocrit 10 and 32, platelets 366,000. Potassium is 2.9, creatinine 1.3. PROBLEM LIST: 1. Pneumonia seems to be resolved, but there is some questionable sinusitis for which she is getting IV antibiotics. 2. Left basal ganglia and brainstem infarct. He is improving a bit. He still has significant dysarthria, dysphagia, left hemiparesis, but a little bit stronger today. His swallowing seems better. He is tolerating a thickened diet, so I do not think we will have to worry about alternative feeding for him. 3. Hypertension. We will continue his medications and follow. Again, he has acute stroke although this many days out I think we probably can be a little bit more aggressive. He is on amlodipine 5 b.i.d. He is on hydralazine 25 t.i.d. He is on lisinopril. I started some metoprolol couple days ago, but blood pressure is still not great, and he is fairly tachycardic. I am going to bump up his Lopressor today and we will see how he does. DISPOSITION: I think he is probably getting close to being able to go to rehab. He has a rehab bed available from what I understand. Continue to monitor. cc: Attila Tinsley MD
--- NOTE | 2019-03-24 15:37 | Diag Imaging Result Doc PS360 ---
CHEST-1 VIEW - 03/24/2019 INDICATION: sob COMPARISON: 03/20/2019 FINDINGS: There is some faint infiltrate or atelectasis in the lung bases, worst in the right lower lobe. This is grossly stable from prior. Heart size is normal. IMPRESSION: Faint infiltrate or atelectasis in the lung bases, stable from prior. Electronically signed by Norberto Siddiqui 03/24/2019 3:35 PM
--- NOTE | 2019-03-24 18:27 | INFECTIOUS DISEASE PROGRESS NO ---
DATE: 03/24/2019 PRESENT ILLNESS: The patient continues to have leukocytosis, but his fever appears to have abated. The patient did have on x-ray maxillary sinusitis. He also had a left lower lobe pneumonia but the last chest x-ray showed no pneumonia. MEDICATIONS: This is day 12 of Zyvox and day 5 of meropenem. PHYSICAL EXAMINATION: Vital Signs: Temperature is 98.7 degrees, pulse 106, respirations 28, blood pressure 178/77. General: This is a chronically ill-appearing, middle-aged male. He is in no acute distress. When I did give him some ice chips he did appear to be having some dysphagia and he may have aspirated. Head/eyes/ears/nose/throat: No drainage noted from the nose or ears. He did not have any white patches on his tongue. Neck: No pain with movement. Lungs: Clear to auscultation. Cardiovascular: Heart rate is regular. Abdomen: Soft and nontender. Neurologic: The patient is awake. He did follow request to move his extremities. He asked also to have ice chips. LAB AND X-RAY: The patient's CBC shows a white count of 19,530, hemoglobin 10.3, and platelet count 366,000. Creatinine is 1.3. GFR is greater than 60. Culture from the patient's nose grew yeast. ASSESSMENT AND PLAN: Patient has leukocytosis. The exact etiology of it is uncertain to me. It could be that he is having some leukocytosis from sinusitis. The patient's last chest x-ray did not show any infiltrates to suggest pneumonia. My plan is to continue meropenem and discontinue Zyvox and I have ordered a portable chest x-ray. COMORBIDITIES: The patient has had a stroke. He also is a diabetic and he has congestive heart failure, asthma and schizophrenia. cc: Jonathon Stapleton MD
[2019-03-24] MEDS: LOVENOX SUBQ SCH (21:23)
[2019-03-24] MEDS: DULCOLAX PR SCH (21:23)
[2019-03-24] MEDS: ABILIFY PO SCH (21:24)
[2019-03-25 06:07] LABS: BASO# 0.02 X1000 (0.0-0.2); BASO% 0.1 % (0.0-0.8); EOS# 0.16 X1000 (0.0-0.7); EOS% 0.9 % (0.0-10.0); HEMATOCRIT 32.5 % (42.0-52.0); HEMOGLOBIN 10.4 g/dL (14.0-18.0); IMM GRAN# 0.08 X1000 (0.0-0.04); IMM GRAN% 0.4 % (0.0-0.5); LYMPH# 1.86 X1000 (1.2-3.4); LYMPH% 9.9 % (20.5-51.1); MCH 28.7 PG (27-31); MCV 89.5 FL (81-99); MONO# 1.23 X1000 (0.11-0.59); MONO% 6.5 % (1.7-9.3); MPV 10.4 FL (7.4-10.4); NEUT# 15.46 X1000 (1.4-6.5); NEUT% 82.2 % (42.2-75.2); PLT 430 X1000 (130-400); RBC 3.63 XMIL (4.7-6.1); RDW 14.6 % (11.5-14.5); WBC 18.81 X1000 (4.8-10.8)
[2019-03-25] MEDS: PROTONIX IV SCH (06:17)
[2019-03-25] MEDS: MERREM 2 GM in NS 100 ML IV SCH ×3 (06:18→22:29)
[2019-03-25 06:34] LABS: AGAP 13; BUN 15 mg/dL (8-22); CHLORIDE 106 mmol/L (98-107); COSMO 289; CREATININE 1.3 mg/dL (0.7-1.2); ESTIMATED GFR > 60; GLUCOSE 150 mg/dL (70-104); POTASSIUM 3.1 mmol/L (3.5-5.1); SODIUM 143 mmol/L (136-145); TCO2 24 mmol/L (25-35)
[2019-03-25] MEDS: HUMALOG SUBQ SCH ×4 (06:43→22:33)
[2019-03-25] MEDS: VITAMIN D PO SCH (08:55)
[2019-03-25] MEDS: PRINIVIL PO SCH ×2 (08:56→22:43)
[2019-03-25] MEDS: PERICOLACE PO SCH ×2 (08:56→22:43)
[2019-03-25] MEDS: APRESOLINE PO SCH ×3 (08:56→16:22)
[2019-03-25] MEDS: FLOMAX PO SCH ×2 (08:56→22:43)
[2019-03-25] MEDS: LOPRESSOR PO SCH ×2 (08:56→22:43)
[2019-03-25] MEDS: NORVASC PO SCH ×2 (08:56→22:43)
[2019-03-25] MEDS: ASPIRIN PO SCH (08:56)
[2019-03-25] MEDS: ATROVENT NEB INH SCH ×3 (09:10→23:17)
[2019-03-25] MEDS: XOPENEX NEB INH SCH ×3 (09:10→23:17)
[2019-03-25] MEDS ORDERED: KLOR-CON PO ONE (10:26)
--- NOTE | 2019-03-25 12:59 | PROGRESS NOTE ---
DATE: 03/25/2019 SUBJECTIVE: Patient has no major complaints. OBJECTIVE: Vital Signs: Blood pressure 165/78, heart rate 99, respiratory rate 18, temperature 98.7 degrees, 98% on 2 L. Cardiovascular: Regular rate and rhythm. Pulmonary: Bilateral breath sounds clear to auscultation. Gastrointestinal: Abdomen soft, nontender, nondistended. Bowel sounds are positive. LABORATORY DATA: White count is down to 18, hemoglobin and hematocrit 10 and 32. Sodium 143, potassium 3.1, creatinine 1.3. PROBLEM LIST: 1. Sinusitis. Discussed the case with Dr. Stapleton. We are going to switch him to Invanz, and discharge him on some IV antibiotics. 2. Left basal ganglia and brainstem infarct. He is slowly improving. We will continue to monitor. He is tolerating his diet. 3. Hypertension is improving. Goal is to be in the 160s to 170s range. DISPOSITION: He has a rehab bed. We are looking at trying to set up IV antibiotics there. We will continue to follow. cc: Attila Tinsley MD
--- NOTE | 2019-03-25 13:48 | PROGRESS NOTE ---
DATE: 03/25/2019 SUBJECTIVE: No major overnight events. The patient tells me he is thirsty and is requesting juice. He denies pain at this time and says his stomach feels better. OBJECTIVE: Vital signs reviewed, in the chart. Mr. Bartholomew is supine in bed. Appears asleep initially. Easily wakes and is reasonably alert, and remains attentive during my time at the bedside. He is severely dysarthric. He is able to speak some words in order to communicate, however. He is not aphasic. He follows simple commands. Pupils are equal, round, and reactive to bright light. Full ocular movements. Face appears symmetric with equal activation. His strength testing of the limbs is unchanged from prior. Labs reviewed, in the chart. ASSESSMENT AND PLAN: Acute brainstem ischemic stroke. He has been stable from a neurologic standpoint. No further recommendations to add to my prior note. I understand he has a rehab bed. cc: Eden Floyd MD
[2019-03-25 14:15] LABS: INR 1.18; PROTIME 15.1 Seconds (11.0-16.0)
--- NOTE | 2019-03-25 15:15 | INFECTIOUS DISEASE PROGRESS NO ---
DATE: 03/25/2019 PRESENT ILLNESS: The patient has, I think, bibasilar pneumonia and axillary sinusitis. The patient the patient continues to have leukocytosis, but over the past 6 days, the white blood cell count is coming down gradually. MEDICATIONS: This is the 6th day of treatment with meropenem. PHYSICAL EXAMINATION: Vital Signs: Temperature is 99.8 degrees, pulse 114, respirations 24, blood pressure is 170/70. General: This is an ill-appearing middle-aged male. He is lethargic, but he is in no acute distress. Head, eyes, ears, nose, and throat: There is no drainage coming from the ears or nose. I did not see any white patches on the patient's tongue. Neck: No pain with movement. Lungs: Clear to auscultation. Cardiovascular: Heart rate is regular. Abdomen: Soft and nontender. Neurologic: The patient is lethargic but he did follow request to move his arms and legs and open his mouth. LAB AND X-RAY: Chest x-ray shows bibasilar faint infiltrates/atelectasis. Creatinine is 1.3. GFR is greater than 60. [place] [address], hemoglobin 10.4, and platelet count 430,000. ASSESSMENT AND PLAN: Patient has a bibasilar pneumonia and sinusitis. Plan is to continue meropenem. COMORBIDITIES: The patient has had a stroke. He also has diabetes mellitus, congestive heart failure, asthma, and schizophrenia. cc: Jonathon Stapleton MD
--- NOTE | 2019-03-25 17:28 | INFECTIOUS DISEASE PROGRESS NO ---
DATE: 03/25/2019 ADDENDUM: The plan now is to send him back to [facility] where he lives. Dr. Tinsley is going to write an order to put in a PICC and I have filled out an order sheet for ertapenem 1 g IV daily for a total of 1 week. Also I have ordered a CBC with a differential and a creatinine every Sunday while the patient is on ertapenem. The last order was for the PICC to be removed after the last dose of ertapenem. cc: Jonathon Stapleton MD
[2019-03-25] MEDS: LOVENOX SUBQ SCH (22:30)
[2019-03-25] MEDS: DULCOLAX PR SCH (22:43)
[2019-03-25] MEDS: ABILIFY PO SCH (22:43)
--- NOTE | 2019-03-25 23:12 | PROVIDER PROGRESS NOTE ---
Progress Note S: O: Last Vital Signs Temp 98.0 F 03/25/19 18:56 Pulse 110 H 03/25/19 18:56 Resp 19 03/25/19 18:56 BP 176/97 03/25/19 18:56 Pulse Ox 97 03/25/19 18:56 Height 5 ft 4 in Weight 155 lb 8 oz LABS: 03/25/19 03/25/19 03/25/19 05:25 05:25 13:58 WBC 18.81 H Hgb 10.4 L Plt Count 430 H INR 1.18 Sodium 143 Potassium 3.1 L Chloride 106 Carbon Dioxide 24 L BUN 15 Creatinine 1.3 H Glucose 150 H CHEST-1 VIEW - 03/24/2019 INDICATION: sob COMPARISON: 03/20/2019 FINDINGS: There is some faint infiltrate or atelectasis in the lung bases, worst in the right lower lobe. This is grossly stable from prior. Heart size is normal. IMPRESSION: Faint infiltrate or atelectasis in the lung bases, stable from prior.
[2019-03-26] MEDS: MERREM 2 GM in NS 100 ML IV SCH ×3 (05:30→21:47)
[2019-03-26 05:39] LABS: BASO# 0.05 X1000 (0.0-0.2); BASO% 0.3 % (0.0-0.8); EOS# 0.25 X1000 (0.0-0.7); EOS% 1.6 % (0.0-10.0); HEMATOCRIT 33.4 % (42.0-52.0); HEMOGLOBIN 10.7 g/dL (14.0-18.0); IMM GRAN# 0.09 X1000 (0.0-0.04); IMM GRAN% 0.6 % (0.0-0.5); LYMPH# 1.79 X1000 (1.2-3.4); LYMPH% 11.1 % (20.5-51.1); MCH 28.8 PG (27-31); MONO# 1.01 X1000 (0.11-0.59); MONO% 6.3 % (1.7-9.3); MPV 10.2 FL (7.4-10.4); NEUT% 80.1 % (42.2-75.2); PLT 458 X1000 (130-400); RBC 3.71 XMIL (4.7-6.1); RDW 14.8 % (11.5-14.5); WBC 16.09 X1000 (4.8-10.8)
[2019-03-26 05:53] LABS: AGAP 11; BUN 16 mg/dL (8-22); CALCIUM 8.8 mg/dL (8.8-10.2); CHLORIDE 108 mmol/L (98-107); COSMO 292; CREATININE 1.3 mg/dL (0.7-1.2); ESTIMATED GFR > 60; GLUCOSE 200 mg/dL (70-104); POTASSIUM 3.2 mmol/L (3.5-5.1); SODIUM 143 mmol/L (136-145); TCO2 24 mmol/L (25-35)
[2019-03-26] MEDS: PROTONIX PO SCH (06:34)
[2019-03-26] MEDS: HUMALOG SUBQ SCH ×4 (06:38→21:56)
[2019-03-26 06:46] LABS: EOS 1 % (1-10); LYMPHS 11 % (21-51); MONO 7 % (1-9); SEGS 81 % (42-75)
[2019-03-26] MEDS ORDERED: NS 250 ML ONE (08:56)
--- NOTE | 2019-03-26 10:12 | INFECTIOUS DISEASE PROGRESS NO ---
DATE: 03/26/2019 PRESENT ILLNESS: The patient is being treated for a bibasilar pneumonia and maxillary sinusitis. MEDICATIONS: This is the 7th day of treatment with meropenem. PHYSICAL EXAMINATION: Vital Signs: Temperature is 98.3 degrees, pulse 108, respirations 17, blood pressure is 157/78. General: This is an ill-appearing middle-aged male. He was sleeping this morning, but I got him awake. HEENT: He does not have any drainage coming from his nose or ears. He does not have any white coating on his tongue. Neck: No pain with movement. Lungs: Clear to auscultation. Cardiovascular: Heart rate is regular. Abdomen: Soft and nontender. Neurologic: The patient was sleeping. I aroused him and he did move his extremities when I requested him to. LAB AND X-RAY: CBC this morning shows a white count of 16,090. For the past week every day the white blood cell count is coming down. Hemoglobin is 10.7, platelet count is 458,000. Creatinine is 1.3. GFR is greater than 60. There is no new radiographic study this morning. ASSESSMENT AND PLAN: Patient has pneumonia and sinusitis. The plan is for him to go back to [facility], where he lives, and he will have a week's worth of ertapenem 1 g IV daily. COMORBIDITIES: The patient had a stroke. He also has diabetes, congestive heart failure, asthma, and schizophrenia. cc: Jonathon Stapleton MD
--- NOTE | 2019-03-26 10:21 | GASTROENTEROLOGY PROGRESS NOTE ---
DATE: 03/26/2019 SUBJECTIVE: Mr. Bartholomew is a 63-year-old, male, resting in bed. His speech is difficult to understand, but he is complaining of pain all over. OBJECTIVE: Vital Signs: Temperature 98.7 degrees, pulse is 121, respirations 18, blood pressure 176/83, oxygen saturation is 100% on room air. The patient's weight is 154 pounds, BMI is 26.5 kg/m2. General: Alert and oriented x2. Slurred speech and difficult to understand. HEENT: Pale conjunctivae. No icterus. PERRL. Neck: Supple. Lungs: Wheezing heard in the anterior upper lobes. Cardiovascular: The patient is tachycardic. Abdomen: Soft, mildly distended. Hypoactive bowel sounds heard in all 4 quadrants. Extremities: No clubbing, no cyanosis, no edema. Pedal pulses 2+ present bilaterally. Neurologic: Alert and oriented x2. IMAGING AND LABORATORY DATA: WBCs of 16.09, RBC 3.71, hemoglobin 10.7, hematocrit is 33.4, platelet count is 458,000. Sodium 143, potassium 3.2, chloride 108, carbon dioxide 24, anion gap 11, BUN 16, creatinine 1.3, glucose 200, calcium 8.8. The patient's chest x-ray on 03/24/2019 has shown faint infiltrates or atelectasis in the lung bases, stable from prior. IMPRESSION AND PLAN: 1. Nausea and vomiting. 2. cerebrovascular accident. 3. Leukocytosis. 4. Diabetes type 2. 5. Abdominal pain. 6. Anemia. 7. Pneumonia, likely aspiration. PLAN: Mr. Bartholomew is a 63-year-old, male with a history of diabetes, hypertension, congestive heart failure, and recent stroke. GI has been following him for his nausea and vomiting. The patient's nausea and vomiting has been improved. He is on antiemetic, Zofran and Phenergan. The patient is receiving Protonix 40 mg p.o. daily. The patient is on antibiotic, Merrem, as per Infectious Disease. As per PCP, patient might be transferred to the rehab facility. The patient is tolerating PO. We will follow him as an outpatient. This plan was discussed with Dr. Quintana. Please call us for any further questions or concerns. Dictated by DWAYNE Dumont for Frank Quintana MD Physician Attestation I have seen and examined the patient. I have discussed and reviewed the note by Vikki RICE and agree with findings and plan as documented. Patient is tolerating PO with assistance. Will sign off. MTDD
[2019-03-26] MEDS: LOPRESSOR PO SCH ×2 (10:44→21:47)
[2019-03-26] MEDS: FLOMAX PO SCH ×2 (10:44→21:47)
[2019-03-26] MEDS: NORVASC PO SCH ×2 (10:44→21:47)
[2019-03-26] MEDS: PRINIVIL PO SCH ×2 (10:44→21:46)
[2019-03-26] MEDS: APRESOLINE PO SCH ×4 (10:44→17:01)
[2019-03-26] MEDS: VITAMIN D PO SCH (10:44)
[2019-03-26] MEDS: PERICOLACE PO SCH ×2 (10:44→22:56)
[2019-03-26] MEDS: ASPIRIN PO SCH (10:44)
[2019-03-26] MEDS ORDERED: KLOR-CON PO ONE (10:57)
--- NOTE | 2019-03-26 11:57 | DISCHARGE SUMMARY ---
ADMISSION DATE: 03/12/2019 DISCHARGE DATE: 03/26/2019 PRIMARY CARE PHYSICIAN: Dr. Carl Lema. CONSULTATIONS: GI, Infectious Disease, Neurology. ADMISSION DIAGNOSES: 1. Altered mental status. 2. Diabetes type 2. 3. Hypertension. 4. Schizophrenia. DISCHARGE DIAGNOSES: 1. Sinusitis. 2. Left basal ganglia and brainstem infarct. 3. Hypertension. SUMMARY OF FINDINGS: This is a 63-year-old male who presented to the ER with complaints of generalized weakness, slurred speech, and decreased ability to walk that started 3 to 4 days prior to coming in. According to the family, the patient is not a good historian. He had been complaining of those things. Had been seen at the [facility] 3 days prior for the same reason, and was discharged home. His blood sugar was noted to be elevated at 247. His urine drug screen was negative. CT of the head showed no hemorrhage, and a small old left infarct. Chest x-ray showed no acute abnormality. He was admitted. We did a brain MRI on 03/14/2019 that showed acute infarct in the upper medulla inferior eve, minimal lacunar infarct in the left basal ganglia. Did an abdomen x-ray on 03/16/2019 that showed the possibility of gastroparesis or gastric outlet obstruction could not be excluded. We did a head CT repeat on 03/15/2019 that showed chronic ischemic changes, but no evidence of intracranial disease. We placed an NG tube on 03/16/2019. On 03/17/2019, we consulted Neurology. On 03/18/2019, we consulted Gastroenterology. On 03/18/2019, we did a brain MRI that showed a stable MRI of the brain, with a subacute infarction in the pontomedullary junction. We did a brain MRA on 03/18/2019 that showed questionable stenosis in the left posterior cerebral artery. This is not directly related to the findings on the MRI. We did a neck MRA on 03/18/2019 as well that showed no definite abnormality. Chest x- ray on 03/19/2019 showed improved left lower lobe pneumonia. He had been started on antibiotics. We did an abdomen x-ray on 03/19/2019 that showed a nonspecific abdomen. On 03/19/2019, he had an EGD that showed moderate gastritis was found in the gastric fundus and gastric body, likely from NG tube trauma, and a biopsy was performed using cold forceps, and a sample sent to Histology. Infectious Disease was consulted on 03/19/2019 for the left lower lobe pneumonia with improvement on chest x-ray, but continued to have leukocytosis and fever. We did a speech modified barium swallow on 03/21/2019 that showed marked delay in initiation of swallowing reflexes with barium of pudding and thick liquid consistency, incomplete laryngeal closure with barium of thin liquid consistency, but no aspiration was witnessed, delayed passage of barium through the esophagus junction and into the stomach. We repeated a chest x-ray on 03/24/2019 that showed faint infiltrates or atelectasis in the lung bases, but stable from prior. His white blood cell count has come down from its high of 24, today is 16.09. Urine culture had no growth. Blood cultures had no growth. Nasal aspirate did show some yeast. He has been treated appropriately, and it is now felt that he can safely be discharged to rehab. DISCHARGE MEDICATIONS: Aripiprazole 5 mg p.o. at bedtime, aspirin 325 mg p.o. daily, vitamin D3 one p.o. daily, Lovenox 40 mg subcutaneously every 24 hours, Apresoline 25 mg p.o. t.i.d., Atrovent nebulizers every 6 hours while awake, Xopenex 1.25 mg inhalation every 6 hours while awake, lisinopril 20 mg p.o. b.i.d., metoprolol 50 mg p.o. b.i.d., Flomax 0.4 mg p.o. b.i.d., Norvasc 10 mg p.o. daily, aspirin 325 mg p.o. daily, duloxetine 30 mg p.o. daily, metformin 500 mg p.o. b.i.d., mirtazapine 15 mg p.o. at bedtime. FOLLOWUP: Once he has completed his rehab stay, he will need to follow up with GI, Infectious Disease, Neurology, and his primary care physician, and those appointments will be made at the time of discharge from rehab. TIME SPENT: A 35-minute discharge. Dictated by DWAYNE Nova for Attila Tinsley MD cc: DWAYNE Nova MD Moses Awoniyi, MD
[2019-03-26] MEDS: XOPENEX NEB INH SCH ×2 (18:12→23:10)
[2019-03-26] MEDS: ATROVENT NEB INH SCH ×2 (18:12→23:10)
[2019-03-26] MEDS: LOVENOX SUBQ SCH (21:46)
[2019-03-26] MEDS: ABILIFY PO SCH (21:46)
[2019-03-26] MEDS: DULCOLAX PR SCH (22:56)
[2019-03-27] MEDS: MERREM 2 GM in NS 100 ML IV SCH ×3 (05:54→21:22)
[2019-03-27] MEDS: PROTONIX PO SCH (06:39)
[2019-03-27] MEDS: HUMALOG SUBQ SCH ×3 (06:45→20:55)
--- NOTE | 2019-03-27 09:27 | DISCHARGE SUMMARY ---
ADMISSION DATE: 03/12/2019 DISCHARGE DATE: 03/26/2019 HISTORY/HOSPITAL COURSE: He is sitting up, not really verbal, but he does kind of nod to answer questions. He is eating with assistance. Still weak on the right side. White count has come down to 16,000. His exam is really unchanged. He seems to be doing better and certainly from my standpoint, stable for discharge to rehab. I do not think he is going to need a PEG tube, I have discussed the case with Dr. Quintana, since he is eating, and speech therapy feels like he should do well on a soft diet. He actually did not do that bad with thin liquids, so with continued speech therapy, may be able to change his diet. PLAN: The plan is to discharge him on Invanz for another week to 10 days. I think I have written 10 days. Full discharge summary per Petra Esparza. TIME SPENT: This is a 35 minute discharge. cc: Attila Tinsley MD
[2019-03-27] MEDS: PERICOLACE PO SCH ×2 (10:01→20:47)
[2019-03-27] MEDS: FLOMAX PO SCH ×2 (10:01→20:47)
[2019-03-27] MEDS: ASPIRIN PO SCH (10:01)
[2019-03-27] MEDS: LOPRESSOR PO SCH ×2 (10:01→20:47)
[2019-03-27] MEDS: APRESOLINE PO SCH ×3 (10:02→17:13)
[2019-03-27] MEDS: NORVASC PO SCH ×2 (10:02→20:47)
[2019-03-27] MEDS: VITAMIN D PO SCH (10:02)
[2019-03-27] MEDS: PRINIVIL PO SCH ×2 (10:02→20:47)
[2019-03-27] MEDS: ATROVENT NEB INH SCH ×3 (11:25→21:57)
[2019-03-27] MEDS: XOPENEX NEB INH SCH ×3 (11:26→21:57)
[2019-03-27] MEDS: CYMBALTA PO SCH (12:49)
--- NOTE | 2019-03-27 13:04 | PROGRESS NOTE ---
DATE: 03/27/2019 SUBJECTIVE: The patient is awake; he just seems depressed. He just does not feel good. His PT says he is not as strong as he was previously. OBJECTIVE: Vital Signs: Blood pressure is 147/69, heart rate of 82, respiratory rate 16, temperature 98.2 degrees,satting 98% on room air. Cardiovascular: Regular rate and rhythm. Pulmonary: Bilateral breath sounds. Clear to auscultation. GI: Soft, nontender, nondistended. Bowel sounds were positive. LABS: White count: No new white count today. I anticipated he was going to go to rehab yesterday, so we did not order labs. PROBLEM LIST: 1. Pontine infarct. We will continue supportive care, blood pressure medications and follow closely. 2. Hypertension. Continue his regular medications. Overall, he has got fairly good control. He is 147/69 and seems to be doing okay. 3. Sinusitis. He is being treated by Dr. Stapleton with ertapenem, so we will continue that for the time being. 4. Schizophrenia. He has a history of schizophrenia; he may be having some issues there. Curiously, he is not on any psych drug, except for Abilify. He is supposed to be on Cymbalta, but I guess that was stopped, and Remeron. So, we will resume those medicines. DISPOSITION: Pending clinical status. cc: Attila Tinsley MD
[2019-03-27] MEDS: REMERON PO SCH (20:47)
[2019-03-27] MEDS: ABILIFY PO SCH (20:47)
[2019-03-27] MEDS: LOVENOX SUBQ SCH (20:47)
[2019-03-27] MEDS: DULCOLAX PR SCH (20:48)
[2019-03-28 05:38] LABS: BASO# 0.05 X1000 (0.0-0.2); BASO% 0.4 % (0.0-0.8); EOS# 0.44 X1000 (0.0-0.7); EOS% 3.7 % (0.0-10.0); IMM GRAN# 0.04 X1000 (0.0-0.04); IMM GRAN% 0.3 % (0.0-0.5); LYMPH# 1.83 X1000 (1.2-3.4); LYMPH% 15.4 % (20.5-51.1); MCH 28.9 PG (27-31); MCHC 32.4 g/dL (33-37); MCV 89.5 FL (81-99); MONO# 1.07 X1000 (0.11-0.59); MPV 10.2 FL (7.4-10.4); NEUT# 8.48 X1000 (1.4-6.5); NEUT% 71.2 % (42.2-75.2); PLT 529 X1000 (130-400); RDW 14.8 % (11.5-14.5); WBC 11.91 X1000 (4.8-10.8)
[2019-03-28] MEDS: MERREM 2 GM in NS 100 ML IV SCH ×3 (06:05→20:57)
[2019-03-28] MEDS: PROTONIX PO SCH (06:10)
[2019-03-28] MEDS: HUMALOG SUBQ SCH ×4 (06:12→20:54)
[2019-03-28 06:13] LABS: AGAP 12; BUN 14 mg/dL (8-22); CALCIUM 9.2 mg/dL (8.8-10.2); CHLORIDE 108 mmol/L (98-107); COSMO 294; CREATININE 1.3 mg/dL (0.7-1.2); ESTIMATED GFR > 60; GLUCOSE 180 mg/dL (70-104); POTASSIUM 3.4 mmol/L (3.5-5.1); SODIUM 145 mmol/L (136-145); TCO2 25 mmol/L (25-35)
[2019-03-28] MEDS: FLOMAX PO SCH ×2 (09:11→20:51)
[2019-03-28] MEDS: PRINIVIL PO SCH ×2 (09:11→20:51)
[2019-03-28] MEDS: PERICOLACE PO SCH ×2 (09:11→20:53)
[2019-03-28] MEDS: MYCOSTATIN SUSP PO SCH ×4 (09:11→20:52)
[2019-03-28] MEDS: APRESOLINE PO SCH ×3 (09:11→17:46)
[2019-03-28] MEDS: CYMBALTA PO SCH (09:11)
[2019-03-28] MEDS: ASPIRIN PO SCH (09:11)
[2019-03-28] MEDS: LOPRESSOR PO SCH ×2 (09:11→20:51)
[2019-03-28] MEDS: VITAMIN D PO SCH (09:11)
[2019-03-28] MEDS: NORVASC PO SCH ×2 (09:11→20:51)
[2019-03-28] MEDS: XOPENEX NEB INH SCH ×3 (10:30→22:55)
[2019-03-28] MEDS: ATROVENT NEB INH SCH ×3 (10:30→22:55)
--- NOTE | 2019-03-28 14:50 | INFECTIOUS DISEASE PROGRESS NO ---
DATE: 03/28/2019 PRESENT ILLNESS: The patient has a bibasilar pneumonia and maxillary sinusitis. MEDICATIONS: This is the 8th day of treatment with meropenem. I am going to add nystatin swish and swallow for the patient's oral candidiasis. PHYSICAL EXAMINATION: Vital Signs: Temperature is 98.7 degrees, pulse 109, respirations 19, blood pressure 163/66. General: This is an ill-appearing, middle-aged male. He is in no acute distress. He can hear my spoken words, but I was unable to see how good his vision is. HEENT: The patient had a white coating on his tongue. Neck: No pain with movement. Lungs: Clear to auscultation. Abdomen: Soft and nontender. Neurologic: The patient was sleeping, but he was easily arousable. He did follow request to move his arms and legs. LAB AND X-RAY: There is no new radiographic study back yet today. The CBC shows a white count of 11,910, hemoglobin 11and platelet count 529,000. Creatinine is 1.3. GFR is greater than 60. ASSESSMENT AND PLAN: The patient has a bibasilar pneumonia for which he is getting meropenem. When he goes into the long-term, he will be getting ertapenem instead of meropenem. The patient does appear to have oral candidiasis, and I am starting him on nystatin swish and swallow. COMORBIDITIES: Today I noticed when I was examining the patient's mouth that he has a white coating of his tongue, which most likely is due to oral candidiasis. The patient had a stroke. He also has diabetes mellitus, congestive heart failure, asthma, and schizophrenia. cc: Jonathon Stapleton MD
--- NOTE | 2019-03-28 20:07 | PROGRESS NOTE ---
DATE: 03/28/2019 SUBJECTIVE: The patient has no major complaints. OBJECTIVE: Vital signs: Blood pressure 126/95, heart rate of 100, respiratory rate of 15, temperature 98 degrees, 93% on room air. Cardiovascular: Regular rate and rhythm. Pulmonary: Bilateral breath sounds, clear to auscultation. GI: Soft, nontender, nondistended. Bowel sounds are positive. LABS: White count 11, hemoglobin and hematocrit 11 and 34, platelets 529,000. Potassium is 3.4, creatinine 1.3. PROBLEM LIST: 1. Acute pontine infarct. Today, he looked a little better to me, more awake, trying to speak. He was requesting water. He is on aspirin. Blood pressure controlled. 2. Sinusitis. Clinically, he is improving on meropenem and the goal will be intravenous ertapenem per Dr. Stapleton. His white count has almost completely normalized. 3. Hypertension, improving. He is on multiple medications. Seems to be doing okay. DISPOSITION: We are looking at rehab options, just not quite there yet, I guess. We will continue to follow closely. Disposition pending clinical status. We will continue to follow closely. cc: Attila Tinsley MD
[2019-03-28] MEDS: REMERON PO SCH (20:51)
[2019-03-28] MEDS: ABILIFY PO SCH (20:52)
[2019-03-28] MEDS: LOVENOX SUBQ SCH (20:52)
[2019-03-28] MEDS: LIPITOR PO SCH (20:56)
[2019-03-29] MEDS: MERREM 2 GM in NS 100 ML IV SCH ×3 (05:24→21:46)
[2019-03-29] MEDS: DULCOLAX PR SCH ×2 (05:25→21:46)
[2019-03-29] MEDS: PROTONIX PO SCH (06:17)
[2019-03-29] MEDS: HUMALOG SUBQ SCH ×4 (06:17→21:37)
[2019-03-29 07:38] LABS: BASO# 0.06 X1000 (0.0-0.2); BASO% 0.5 % (0.0-0.8); EOS# 0.51 X1000 (0.0-0.7); EOS% 4.2 % (0.0-10.0); HEMATOCRIT 34.8 % (42.0-52.0); HEMOGLOBIN 10.8 g/dL (14.0-18.0); IMM GRAN# 0.04 X1000 (0.0-0.04); IMM GRAN% 0.3 % (0.0-0.5); LYMPH# 1.74 X1000 (1.2-3.4); LYMPH% 14.3 % (20.5-51.1); MCH 28.2 PG (27-31); MCV 90.9 FL (81-99); MONO# 1.15 X1000 (0.11-0.59); MONO% 9.4 % (1.7-9.3); MPV 10.5 FL (7.4-10.4); NEUT# 8.67 X1000 (1.4-6.5); NEUT% 71.3 % (42.2-75.2); PLT 546 X1000 (130-400); RBC 3.83 XMIL (4.7-6.1); RDW 14.9 % (11.5-14.5); WBC 12.17 X1000 (4.8-10.8)
[2019-03-29 07:41] LABS: AGAP 11; BUN 17 mg/dL (8-22); CALCIUM 9.3 mg/dL (8.8-10.2); CHLORIDE 108 mmol/L (98-107); COSMO 299; CREATININE 1.4 mg/dL (0.7-1.2); ESTIMATED GFR > 60; GLUCOSE 228 mg/dL (70-104); POTASSIUM 3.1 mmol/L (3.5-5.1); SODIUM 146 mmol/L (136-145); TCO2 27 mmol/L (25-35)
[2019-03-29 08:32] LABS: LYMPHS 12 % (21-51); MONO 10 % (1-9); SEGS 78 % (42-75)
[2019-03-29] MEDS: XOPENEX NEB INH SCH ×4 (08:40→23:28)
[2019-03-29] MEDS: ATROVENT NEB INH SCH ×4 (08:40→23:27)
[2019-03-29] MEDS: TYLENOL PR PRN (11:37)
[2019-03-29] MEDS: LOPRESSOR PO SCH ×2 (11:38→21:37)
[2019-03-29] MEDS: VITAMIN D PO SCH (11:38)
[2019-03-29] MEDS: APRESOLINE PO SCH ×3 (11:38→18:28)
[2019-03-29] MEDS: ASPIRIN PO SCH (11:38)
[2019-03-29] MEDS: PERICOLACE PO SCH ×2 (11:38→21:37)
[2019-03-29] MEDS: FLOMAX PO SCH ×2 (11:38→21:37)
[2019-03-29] MEDS: CYMBALTA PO SCH (11:38)
[2019-03-29] MEDS: NORVASC PO SCH ×2 (11:38→21:37)
[2019-03-29] MEDS: PRINIVIL PO SCH ×2 (11:38→21:37)
[2019-03-29] MEDS: MYCOSTATIN SUSP PO SCH ×4 (11:39→21:37)
[2019-03-29] MEDS ORDERED: KLOR-CON PO ONE (12:09)
[2019-03-29] MEDS ORDERED: CLINIMIX E 4.25%-5% SOLUTION 1,000 ML IV SCH (12:15)
--- NOTE | 2019-03-29 15:42 | PROGRESS NOTE ---
DATE: 03/29/2019 SUBJECTIVE: Patient has no major complaints. OBJECTIVE: Vital Signs: Blood pressure is 141/88, heart rate of 91, respiratory rate of 22, temperature 99.6 degrees, O2 saturation 96% on room air. Cardiovascular: Regular rate and rhythm. Pulmonary: Bilateral breath sounds clear to auscultation. Gastrointestinal: Abdomen was soft, nontender, nondistended. Bowel sounds are positive. LABORATORY DATA: White count is 12, hemoglobin and hematocrit 10 and 34, platelets 546,000. Sodium 146, potassium 3.1, creatinine of 1.4. PROBLEM LIST: 1. Acute pontine infarct. He is more awake. He is trying to speak. He is constantly requesting water, which I think he may be a little free water restricted. He is on aspirin, blood pressure medications, and we will follow. 2. Sinusitis. He is on meropenem. 3. Hypertension is stable. DISPOSITION: We are looking at rehab when bed is available. cc: Attila Tinsley MD
[2019-03-29] MEDS: LIPITOR PO SCH (21:37)
[2019-03-29] MEDS: REMERON PO SCH (21:37)
[2019-03-29] MEDS: LOVENOX SUBQ SCH (21:37)
[2019-03-29] MEDS: ABILIFY PO SCH (21:37)
[2019-03-30] MEDS: MERREM 2 GM in NS 100 ML IV SCH ×3 (06:27→22:30)
[2019-03-30] MEDS: PROTONIX PO SCH (06:27)
[2019-03-30] MEDS: HUMALOG SUBQ SCH ×4 (06:28→22:42)
[2019-03-30] MEDS: XOPENEX NEB INH SCH ×4 (09:52→22:47)
[2019-03-30] MEDS: ATROVENT NEB INH SCH ×4 (09:52→22:47)
--- NOTE | 2019-03-30 10:32 | Diag Imaging Result Doc PS360 ---
EXAM: CHEST-1 VIEW 03/30/2019 HISTORY: pneumonia TECHNIQUE: Erect AP portable at 1019 COMMENT: There is a PICC line on the left with its tip in the right atrium. The opacities which were previously present in the lung bases on 03/24/2019 have improved. IMPRESSION: Improved bibasilar atelectasis and/or pneumonia. Electronically signed by Ramiro Lopez 03/30/2019 10:30 AM
--- NOTE | 2019-03-30 10:33 | INFECTIOUS DISEASE PROGRESS NO ---
DATE: 03/30/2019 PRESENT ILLNESS: The patient has bibasilar pneumonia, maxillary sinusitis, and most recently, he was discovered to have oral candidiasis. MEDICATIONS: This is day 11 of treatment with meropenem and day 2 of treatment with nystatin. PHYSICAL EXAMINATION: Vital Signs: Temperature is 98 degrees, pulse 109, respirations 22, blood pressure is 171/94. General: This is an ill-appearing, middle-aged male. He is in no acute distress. Head, Eyes, Ears, Nose, and Throat: The patient's white coating on his tongue is getting better. There is no drainage from the nose or ears. Neck: No pain with movement. Lungs: Clear to auscultation. Cardiovascular: Heart rate is regular. Abdomen: Soft and nontender. Neurologic: The patient is awake. He does not have a tremor. He did not move his extremities when I asked him to. LAB AND X-RAYS: There is no new x-ray. CBC shows a white count of 12,170, hemoglobin 10.9, platelet count 546,000. Creatinine is 1.4. GFR is greater than 60. ASSESSMENT AND PLAN: The patient has bibasilar pneumonia, sinusitis, and oral candidiasis. I am going to continue meropenem and nystatin. I have ordered a chest x-ray for today. COMORBIDITIES: The patient has had a stroke. He also has diabetes mellitus, congestive heart failure, asthma, and schizophrenia. cc: Jonathon Stapleton MD
[2019-03-30] MEDS: MYCOSTATIN SUSP PO SCH ×4 (11:52→22:31)
[2019-03-30] MEDS: NORVASC PO SCH ×2 (11:54→22:31)
[2019-03-30] MEDS: VITAMIN D PO SCH (11:54)
[2019-03-30] MEDS: PERICOLACE PO SCH ×2 (11:54→22:31)
[2019-03-30] MEDS: LOPRESSOR PO SCH ×2 (11:54→22:31)
[2019-03-30] MEDS: APRESOLINE PO SCH ×3 (11:55→17:28)
[2019-03-30] MEDS: CYMBALTA PO SCH (11:55)
[2019-03-30] MEDS: FLOMAX PO SCH ×2 (11:55→22:31)
[2019-03-30] MEDS: ASPIRIN PO SCH (11:55)
[2019-03-30] MEDS: PRINIVIL PO SCH ×2 (11:55→21:15)
--- NOTE | 2019-03-30 16:51 | PROGRESS NOTE ---
DATE: 03/30/2019 SUBJECTIVE: Patient has no major complaints. OBJECTIVE: Vital signs: Blood pressure 153/89, heart rate of 117, respiratory rate of 20, temperature of 98.2 degrees. Cardiovascular: Regular rate and rhythm. Pulmonary: Bilateral breath sounds. Diminished at bases. GI: Soft, nontender, nondistended. Bowel sounds were positive. LABORATORY DATA: I do not think we have any new data today. PROBLEM LIST: 1. Acute pontine infarct with dysarthria, dysphagia. We will continue antiplatelet therapy, statin, blood pressure control. 2. Sinusitis. He is on meropenem per ID which was started on the 8th. He has been on and 11 days. He is on nystatin. Chest x-ray has been ordered for today. 3. Hypertension. He is stable. DISPOSITION: We are still waiting on rehab options, so we will continue to follow. cc: Attila Tinsley MD
[2019-03-30] MEDS: LIPITOR PO SCH (22:31)
[2019-03-30] MEDS: ABILIFY PO SCH (22:31)
[2019-03-30] MEDS: REMERON PO SCH (22:31)
[2019-03-30] MEDS: LOVENOX SUBQ SCH (22:32)
[2019-03-30] MEDS: DULCOLAX PR SCH (22:32)
[2019-03-31] MEDS: MERREM 2 GM in NS 100 ML IV SCH ×3 (06:19→21:21)
[2019-03-31] MEDS: PROTONIX PO SCH (06:19)
[2019-03-31] MEDS: HUMALOG SUBQ SCH ×4 (06:20→21:46)
--- NOTE | 2019-03-31 06:51 | INFECTIOUS DISEASE PROGRESS NO ---
DATE: 03/31/2019 PRESENT ILLNESS: The patient has bibasilar pneumonia, maxillary sinusitis, and oral candidiasis. MEDICATIONS: This is day 12 of treatment with meropenem and day 3 of treatment with nystatin. PHYSICAL EXAMINATION: Vital Signs: Temperature is 98 degrees, pulse 74, respirations 22, blood pressure is 153/99. General: This is a lethargic, ill-appearing, middle-aged male. He is in no acute distress. Head, Eyes, Ears, Nose, and Throat: The patient's white coating on his tongue is almost completely gone. He can hear my spoken words. There is no drainage from his nose or ears. Neck: No pain with movement of the neck. Lungs: Clear to auscultation. Cardiovascular: Heart rate is regular. Abdomen: Soft and nontender. Neurologic: The patient is lethargic today but he can be aroused and he did move his extremities when I asked him to. LAB AND X-RAY: The patient's lab work is pending. Chest x-ray shows improvement in the bibasilar opacities. ASSESSMENT AND PLAN: The patient has bibasilar pneumonia, sinusitis, and oral candidiasis. My plan is to continue meropenem and nystatin. COMORBIDITIES: The patient had a stroke. He also has diabetes mellitus, congestive heart failure, asthma, and schizophrenia. cc: Jonathon Stapleton MD
[2019-03-31 07:06] LABS: BASO# 0.05 X1000 (0.0-0.2); BASO% 0.4 % (0.0-0.8); EOS# 0.52 X1000 (0.0-0.7); EOS% 4.2 % (0.0-10.0); HEMATOCRIT 33.1 % (42.0-52.0); HEMOGLOBIN 10.3 g/dL (14.0-18.0); IMM GRAN# 0.03 X1000 (0.0-0.04); IMM GRAN% 0.2 % (0.0-0.5); LYMPH% 16.8 % (20.5-51.1); MCH 28.3 PG (27-31); MCHC 31.1 g/dL (33-37); MCV 90.9 FL (81-99); MONO# 0.94 X1000 (0.11-0.59); MONO% 7.5 % (1.7-9.3); MPV 10.7 FL (7.4-10.4); NEUT# 8.86 X1000 (1.4-6.5); NEUT% 70.9 % (42.2-75.2); PLT 492 X1000 (130-400); RBC 3.64 XMIL (4.7-6.1); RDW 15.1 % (11.5-14.5)
[2019-03-31 07:13] LABS: AGAP 10; BUN 16 mg/dL (8-22); CALCIUM 9.5 mg/dL (8.8-10.2); CHLORIDE 112 mmol/L (98-107); COSMO 302; CREATININE 1.3 mg/dL (0.7-1.2); ESTIMATED GFR > 60; GLUCOSE 182 mg/dL (70-104); POTASSIUM 3.5 mmol/L (3.5-5.1); SODIUM 149 mmol/L (136-145); TCO2 27 mmol/L (25-35)
[2019-03-31] MEDS: ATROVENT NEB INH SCH ×3 (09:06→22:54)
[2019-03-31] MEDS: XOPENEX NEB INH SCH ×3 (09:06→22:54)
[2019-03-31] MEDS: PERICOLACE PO SCH ×2 (09:37→21:21)
[2019-03-31] MEDS: CYMBALTA PO SCH (09:37)
[2019-03-31] MEDS: FLOMAX PO SCH ×2 (09:37→21:20)
[2019-03-31] MEDS: PRINIVIL PO SCH ×2 (09:37→21:20)
[2019-03-31] MEDS: NORVASC PO SCH ×2 (09:37→21:20)
[2019-03-31] MEDS: ASPIRIN PO SCH (09:37)
[2019-03-31] MEDS: LOPRESSOR PO SCH ×2 (09:37→21:20)
[2019-03-31] MEDS: APRESOLINE PO SCH ×3 (09:37→18:01)
[2019-03-31] MEDS: MYCOSTATIN SUSP PO SCH ×4 (09:37→21:20)
[2019-03-31] MEDS: VITAMIN D PO SCH (09:37)
[2019-03-31 10:46] LABS: EOS 2 % (1-10); LARGE PLATELETS 1+; LYMPHS 16 % (21-51); MONO 8 % (1-9); SEGS 74 % (42-75)
[2019-03-31] MEDS ORDERED: D5 1/2 NS 1,000 ML IV SCH (14:30)
--- NOTE | 2019-03-31 14:47 | PROGRESS NOTE ---
DATE: 03/31/2019 SUBJECTIVE: Patient does not feel great today, but overall seems to be doing okay. OBJECTIVE: Vital Signs: Blood pressure is 172/82, heart rate 88, respiratory rate 18, temperature 98.2 degrees, satting 100% on room air. Cardiovascular: Regular rate and rhythm. Pulmonary: Bilateral breath sounds. Clear to auscultation. GI: Soft, nontender, nondistended. Bowel sounds are positive. LAB DATA: White count is 12, hemoglobin and hematocrit 10 and 33, platelets 492. Sodium is up to 149, creatinine of 1.3, sugar 249. PROBLEM LIST: 1. Acute pontine infarct. We will continue anti-platelet therapy, statin, blood pressure control. 2. Sinusitis. He is on Merrem per Infectious Disease. I think this is day 12. 3. Hypertension is still not completely controlled. He is on amlodipine, hydralazine, lisinopril; I am going to go up on his hydralazine to 50 tif, three times a day, and we will continue to monitor. 4. Type 2 diabetes. Again, he is not completely under control especially with acute vascular incident, so we will continue to monitor him. He is not on any long-acting insulin or any diabetic medications. He is supposed to be on metformin, but his renal insufficiency may preclude that. So, I am going to start some Lantus and we will follow. cc: Attila Tinsley MD
[2019-03-31] MEDS ORDERED: 1/2 NS 1,000 ML IV SCH ×2 (15:00→15:05)
[2019-03-31] MEDS: LANTUS INSULIN SUBQ SCH (15:33)
[2019-03-31] MEDS: LIPITOR PO SCH (21:20)
[2019-03-31] MEDS: ABILIFY PO SCH (21:20)
[2019-03-31] MEDS: LOVENOX SUBQ SCH (21:20)
[2019-03-31] MEDS: REMERON PO SCH (21:21)
[2019-03-31] MEDS: DULCOLAX PR SCH (21:21)
[2019-04-01] MEDS: MERREM 2 GM in NS 100 ML IV SCH ×2 (04:31→12:52)
[2019-04-01 05:19] LABS: BASO# 0.04 X1000 (0.0-0.2); BASO% 0.3 % (0.0-0.8); EOS# 0.54 X1000 (0.0-0.7); EOS% 3.8 % (0.0-10.0); HEMOGLOBIN 10.4 g/dL (14.0-18.0); IMM GRAN# 0.02 X1000 (0.0-0.04); IMM GRAN% 0.1 % (0.0-0.5); LYMPH# 1.97 X1000 (1.2-3.4); LYMPH% 13.7 % (20.5-51.1); MCH 28.5 PG (27-31); MCHC 31.5 g/dL (33-37); MCV 90.4 FL (81-99); MONO# 0.71 X1000 (0.11-0.59); MPV 10.7 FL (7.4-10.4); NEUT# 11.06 X1000 (1.4-6.5); NEUT% 77.1 % (42.2-75.2); PLT 477 X1000 (130-400); RBC 3.65 XMIL (4.7-6.1); WBC 14.34 X1000 (4.8-10.8)
[2019-04-01 05:32] LABS: AGAP 10; BUN 15 mg/dL (8-22); CALCIUM 9.4 mg/dL (8.8-10.2); CHLORIDE 111 mmol/L (98-107); COSMO 293; CREATININE 1.4 mg/dL (0.7-1.2); ESTIMATED GFR > 60; GLUCOSE 132 mg/dL (70-104); POTASSIUM 3.1 mmol/L (3.5-5.1); SODIUM 146 mmol/L (136-145); TCO2 25 mmol/L (25-35)
[2019-04-01] MEDS: PROTONIX PO SCH (06:15)
[2019-04-01] MEDS: HUMALOG SUBQ SCH ×2 (06:27→12:52)
[2019-04-01 07:03] LABS: EOS 3 % (1-10); LYMPHS 9 % (21-51); MONO 4 % (1-9); SEGS 84 % (42-75)
[2019-04-01] MEDS: XOPENEX NEB INH SCH ×2 (08:07→16:33)
[2019-04-01] MEDS: ATROVENT NEB INH SCH ×2 (08:07→16:33)
[2019-04-01] MEDS: LANTUS INSULIN SUBQ SCH (09:33)
[2019-04-01] MEDS: MYCOSTATIN SUSP PO SCH ×2 (09:34→12:55)
[2019-04-01] MEDS: CYMBALTA PO SCH (09:34)
[2019-04-01] MEDS: VITAMIN D PO SCH (09:34)
[2019-04-01] MEDS: LOPRESSOR PO SCH (09:34)
[2019-04-01] MEDS: ASPIRIN PO SCH (09:34)
[2019-04-01] MEDS: PRINIVIL PO SCH (09:34)
[2019-04-01] MEDS: PERICOLACE PO SCH (09:34)
[2019-04-01] MEDS: APRESOLINE PO SCH ×2 (09:34→12:54)
[2019-04-01] MEDS: FLOMAX PO SCH (09:34)
[2019-04-01] MEDS: NORVASC PO SCH (09:34)
--- NOTE | 2019-04-01 09:46 | INFECTIOUS DISEASE PROGRESS NO ---
DATE: 04/01/2019 PRESENT ILLNESS: The patient has a bibasilar pneumonia, maxillary sinusitis, and oral candidiasis. Today, his white blood cells did increase to 14,340. MEDICATIONS: This is day 13 of treatment with meropenem and day 4 of treatment with nystatin. PHYSICAL EXAMINATION: Vital Signs: Temperature is 98.4 degrees, pulse 107, respirations 21, blood pressure is 162/77. General: This is a lethargic, ill-appearing, middle-aged male. He is in no acute distress. Head, Eyes, Ears, Nose, and Throat: He can hear my spoken words. He does not have any white coating on his tongue. There is no drainage from the nose or ears. Neck: No stiffness. Lungs: Clear to auscultation. Cardiovascular: Heart rate is regular. Abdomen: Soft and nontender. Neurologic: The patient is lethargic today. He did follow requests to move his extremities. LAB AND X-RAY: There is no new radiographic study. The CBC has a white count, as I mentioned earlier, that is increased to 14,340, hemoglobin 10.4, and platelet count 477,000. Creatinine is 1.4. GFR is greater than 60. The patient's last chest x-ray showed improvement in his opacities. ASSESSMENT AND PLAN: The patient has bibasilar pneumonia, sinusitis, and oral candidiasis. Also, the patient's white blood cell count did increase today. My plan is to continue the current antibiotics and obtain another CBC tomorrow as well as a portable chest x-ray. COMORBIDITIES: The patient had a stroke. He also has diabetes mellitus, congestive heart failure, asthma, and schizophrenia. cc: Jonathon Stapleton MD
[2019-04-01] MEDS ORDERED: KLOR-CON PO ONE (11:14)
--- NOTE | 2019-04-01 12:35 | DISCHARGE SUMMARY ---
ADMISSION DATE: 03/12/2019 DISCHARGE DATE: ADDENDUM: Seen the day of discharge. He is awake, alert. No major issues. Afebrile. His exam is unchanged. He still has some dysphagia but plan is to discharge him today. I think he will need another 24 hours of Invanz. His white count did go up a little bit today, but I think some of that may be hemoconcentration because he is not taking very much in. My plan was to discharge him today on another 72 hours of antibiotics. This is a discharge addendum, he had a discharge summary already on the . The only additional medications is I will probably do Invanz for another 5 days. cc: Attila Tinsley MD
--- NOTE | 2019-04-01 12:45 | DISCHARGE SUMMARY ---
ADMISSION DATE: 03/12/2019 DISCHARGE DATE: 04/01/2019 PRIMARY CARE PROVIDER: Dr. Carl Lema. CONSULTANTS: 1. Dr. Miguel Brennan. 2. Dr. Anthony Ahn. 3. Dr. Jonathon Stapleton. DIAGNOSES: 1. Left basal ganglia and brainstem infarct. 2. Sinusitis. 3. Hypertension. 4. Diabetes mellitus type 2. 5. History of schizophrenia. DIAGNOSTICS: 1. On 03/12/2019, chest x-ray revealed no acute abnormality. Lungs are well expanded. Heart is not enlarged. Vessels are not distended. There are no infiltrates, no pleural effusions. 2. CT of the head: No hemorrhage. Small old left infarct, periventricular, near the frontal horn of the internal capsule. 3. On 03/12/2019, CT of the chest, abdomen, and pelvis: Chest revealed tiny left lower lobe infiltrates. Abdomen and pelvis revealed fatty infiltration of the liver, colonic diverticulosis, and fat-filled umbilical hernia. 4. On 03/14/2019, brain MRI: Acute infarct in the upper medulla/inferior eve. Minimal lacunar infarct in the left basal ganglia. 5. On 03/15/2019, CT of the head revealed chronic ischemic changes. No evidence of acute intracranial disease. 6. On 03/16/2019, abdominal x-ray: The possibility of gastroparesis or gastric outlet obstruction cannot be excluded. Otherwise, nonspecific abdomen. 7. On 03/17/2019, chest x-ray reveals a mildly prominent heart. No pneumonia identified. 8. On 03/18/2019, brain MRI: Stable MRI of the brain. Subacute infarct in the pontomedullary junction. 9. On 03/18/2019, brain MRA: Questionable stenosis in the left posterior cerebral artery. 10. On 03/18/2019, neck MRA: No definite abnormality. Both vertebral arteries are apparently patent, although the proximal left vertebral is not well demonstrated. The internal carotid arteries are unremarkable. 11. On 03/19/2019, chest x-ray reveals improved left lower lobe pneumonia. 12. On 03/19/2019, abdomen x-ray reveals colonic and small bowel gas without evidence of dilatation. There is no evidence of organomegaly or mass. 13. On 03/20/2019, chest x-ray: No pneumonia identified. 14. On 03/21/2019, [place] view x-ray: Questionable maxillary sinusitis. 15. On 03/30/2019, chest x-ray: Improved bibasilar atelectasis and/or pneumonia. MICROBIOLOGY: 1. Blood cultures x2 sets revealed no growth after 5 days. 2. Nasal aspirate revealed yeast. 3. Urine culture revealed no growth. PROCEDURES: 1. On 03/19/2019, EGD with biopsy: Mucosa of the esophagus appeared normal. The Z-line was noted at 40 cm from the incisors. Z-line appeared normal. Stomach had moderate gastritis in the gastric fundus and gastric body, likely from NG tube trauma. A biopsy was performed using cold forceps. Duodenum was normal. 2. On 03/26/2019, PICC line was placed. PATHOLOGY REPORT: Gastric biopsy, 03/19/2019, revealed Helicobacter pylori negative, chronic inactive gastritis with Foveolar hyperplasia. HOSPITAL COURSE: Mr. Bartholomew presented to the hospital with altered mental status. He was ultimately found to have an upper medulla inferior pontine infarct and a left basal ganglia infarct. His initial CT scan was negative. Stroke was found on MRI. The patient was started on aspirin. He was evaluated by Neurology. His mental status slowly improved. He continues to be dysarthric. He does follow simple commands. He has been working with Physical Therapy. He was evaluated by Speech Therapy. Modified barium swallow study was completed. He was then placed on a diabetic mechanical soft diet with nectar thickened liquids with strict aspiration precautions that he has tolerated well. In regards to his diabetes mellitus, blood sugars have ranged in the primarily 100 to about 250 range, for which we covered with pattern blood glucose and sliding scale insulin. He was found to have left lower lobe pneumonia, for which he was treated with Zosyn and Zyvox. The patient continued to have leukocytosis and fever on Zyvox and Zosyn. Dr. Stapleton, Infectious Disease was consulted. Zosyn was stopped, and he was changed to meropenem. He was found to have maxillary sinusitis. He was ultimately found to have sinusitis. Antibiotics were changed to meropenem. He was later found to have oral candidiasis. Nystatin was started. He developed abdominal pain, nausea, and vomiting. Gastroenterology was consulted. He underwent an EGD with biopsy on 03/19/2019 and was found to have moderate gastritis in the gastric fundus and gastric body that was felt to be from NG tube trauma. Biopsy ultimately returned Helicobacter pylori negative with chronic inactive gastritis, with recommendations to continue PPI and p.r.n. antiemetics. Thankfully today, he is doing better and he is ready for discharge. DISCHARGE PHYSICAL EXAMINATION: Vital Signs: Blood pressure is 158/77, with a heart rate of 100, respirations are 18, temperature is 98.1 degrees oral, with room air saturations 94% to 97% percent. Cardiovascular: Regular rate and rhythm. S1 and S2 appreciated. He has peripheral pulses palpable x4 extremities. No murmurs noted. Pulmonary: Breath sounds are clear with no increased work of breathing noted. Chest rises and falls symmetric with respiration. Gastrointestinal: Abdomen is soft, nontender, nondistended with bowel sounds in all 4 quadrants. Skin: Warm and dry. DISCHARGE MEDICATIONS: 1. Metoprolol 50 mg p.o. b.i.d. 2. Metformin 500 mg 1 p.o. b.i.d. 3. Lisinopril 20 mg p.o. b.i.d. 4. Xopenex 1.25 nebs every 6 hours. 5. Atrovent nebs every 6 hours. 6. Hydralazine 25 mg p.o. t.i.d. 7. Aspirin 325 mg p.o. daily. 8. Norvasc 10 mg p.o. daily. 9. Tamsulosin 0.4 mg p.o. b.i.d. 10. Remeron 15 mg p.o. at bedtime. 11. Cymbalta 30 mg p.o. daily. 12. Vitamin D3, 125 mcg p.o. daily. 13. Abilify 5 mg p.o. daily. 14. Invanz 1 Gm IV daily x 5 days. FOLLOWUP: 1. Dr. Anthony Ahn. 2. Dr. Jonathon Stapleton, Infectious Disease. 3. Dr. Frank Quintana, Gastroenterology. 4. Dr. Carl Lema. Appointments need to be made for the patient to be seen with Dr. Ahn and Dr. Quintana 1 to 2 weeks after discharge from rehab. Dr. Jonathon Stapleton, the patient needs to be seen upon discontinuing antibiotics. DISPOSITION: He is being discharged in transfer to rehab in stable condition, his present. TIME SPENT: This is a greater than 30-minute discharge. Dictated by DWAYNE Funez for Attila Tinsley MD cc: DWAYNE Funez MD [facility]
[2019-04-01 14:01] VITALS: BP 145/83
== END 2019-04-01 17:40 | DRG 64 ==
LOC: ED 12:15 → SUATTDRO 19:48 → 3N 19:48 → 2N 03-19 15:35 → 1N 03-25 17:12
PROVIDERS: ATTEND Internal Medicine

== ENCOUNTER 2019-04-26 18:08 | Inpatient (IN) ==
--- NOTE | 2019-04-26 19:30 | PROVIDER DOCUMENTATION ---
HPI-General Adult - General Stated Complaint: CP Time Seen by Provider: 04/26/19 18:56 Source: family, EMS Allergies/Adverse Reactions: Patient Allergies Allergy/AdvReac Type Severity Reaction Status Date / Time Sulfa (Sulfonamide Allergy RASH Verified 04/26/19 20:16 Antibiotics) cephalexin [From Keflex] AdvReac RASH Verified 04/26/19 20:16 Home Medications: Home Medication List Medication Instructions Recorded Confirmed Last Taken Type Amlodipine Besylate [Norvasc] 1 tab PO DAILY 01/10/19 04/26/19 01/10/19 History Aripiprazole [Abilify] 1 tab PO QHS 01/10/19 04/26/19 01/10/19 History Duloxetine [Cymbalta] 1 cap PO DAILY 01/10/19 04/26/19 01/10/19 History Metformin [Glucophage] 1 tab PO BID 01/10/19 04/26/19 01/10/19 History Mirtazapine [Remeron] 1 tab PO QHS 01/10/19 04/26/19 01/10/19 History Tamsulosin [Flomax] 1 cap PO BID 01/10/19 04/26/19 01/10/19 History Cholecalciferol (Vitamin D3) 1 cap PO DAILY 03/12/19 04/26/19 Unknown History [Vitamin D3] Aspirin 325 mg PO DAILY tab 03/25/19 04/26/19 Unknown Rx Hydralazine [Apresoline] 25 mg PO TID tab 03/25/19 04/26/19 Unknown Rx Ipratropium [place] Neb [Atrovent 0.5 mg INH RTQ6H.[place] neb 03/25/19 04/26/19 Unknown Rx Neb] LISINOpril [Prinivil] 20 mg PO BID tab 03/25/19 04/26/19 Unknown Rx Levalbuterol Neb [Xopenex Neb] 1.25 mg INH RTQ6H.[place] neb 03/25/19 04/26/19 Unknown Rx Metoprolol [Lopressor] 50 mg PO BID tab 03/25/19 04/26/19 Unknown Rx Ertapenem 1 gm/Ns [Invanz 1 gm/Ns] 1 gm IV DAILY #5 ivpb 04/01/19 04/26/19 Unknown Rx - History of Present Illness -Gen Adult Nature of Presenting Problems: 63 yo male presents with family via EMS for CC of chest pain and shortness of breath. Per EMS and family report the patient has a hx of stroke for which he was placed on hospice. EMS was called as the patient was having complaints of chest pain and shortness of breath. The patient was desaturation and required 15L on [id number]. The patient has a hx of frequent aspiration. The family reports that the patient just got out of rehab and began to complain of shortness of breath and chest pain today. Location of Pain/Injury: reports: chest Severity: reports: moderate Onset/Duration: reports: other (today) Timing: reports: still present Context/Activities at Onset: reports: other (just discharge from rehab) Associated Symptoms: reports: chest pain, shortness of breath. denies: fever/chills Review of Systems - Adult - REVIEW OF SYSTEMS - ADULT ROS:: unobtainable per condition Constitutional: reports: other (unable to obtain 2/2 patient status) Past History - Adult - PAST MEDICAL HISTORY-ADULT Review of Records: reports: Old Records Reviewed Major Childhood Illnesses: reports: denies history Cardiovascular: reports: CHF, HTN, hyperlipidemia Respiratory: reports: asthma Gastrointestinal: reports: GERD Obstetrical/Gynecological: reports: denies history Genitourinary: reports: denies history Musculoskeletal: reports: denies history Neurological: reports: denies history Psychiatric: reports: psychiatric problems Endocrine/Immune: reports: Diabetes Other Conditions: reports: denies history - PRIOR SURGERIES/PROCEDURES Surgical/Procedure History: reports: reviewed, not pertinent, back/neck (back) - IMMUNIZATION STATUS Childhood Immunizations: See Nurse Assessment Flu Vaccine: See Nurse Assessment - FAMILY HISTORY Family History: CAD over 55 yo Physical Exam-General - CONSTITUTIONAL General Appearance: lethargic, slow to respond - EYES Eyes: other (left eye ptosis). negative: conjuctival exudate, scleral icterus - HEAD, EARS, NOSE, MOUTH & THROAT HENMT: normocephalic/atraumatic - NECK Neck: non-tender, supple - RESPIRATORY Respiratory: respiratory distress, decreased breath sounds (RLL), rales (LLL) - CARDIOVASCULAR Cardiovascular: no edema, tachycardia - GASTROINTESTINAL (ABDOMEN) Abdominal Exam: non tender, soft - MUSCULOSKELETAL Extremity: non-tender. negative: deformity, swelling - SKIN Integumentary: normal color, warm/dry. negative: jaundice, pallor - NEUROLOGIC Neurologic: facial droop (right sided), other (moves all extremities) - PSYCHIATRIC Psych/Mental Status: other (lethargic, able to follow commands) Progress - PLAN OF CARE/RESULTS Progress/Plan/Lab Results: Orders Category Date Time Status ABG [RESP] Routine Lab 04/26/19 19:27 Ordered Result Diagrams: 04/26/19 19:40 04/26/19 19:40 Departure - Departure Date of Disposition Decision: 04/26/19 Time of Disposition Decision: 23:12 DIAGNOSIS: Pneumonia Qualifiers: Pneumonia type: due to unspecified organism Laterality: bilateral Lung location: lower lobe of lung Qualified Code(s): J18.1 - Lobar pneumonia, unspecified organism Sepsis Qualifiers: Sepsis type: sepsis due to unspecified organism Sepsis acute organ dysfunction status: with acute organ dysfunction Severe sepsis acute organ dysfunction type: unspecified Severe sepsis shock status: without septic shock Qualified Code(s): A41.9 - Sepsis, unspecified organism; R65.20 - Severe sepsis without septic shock Disposition: ADMITTED INPATIENT 09 Certified Medical Emergency: Emergent Condition: Serious - Critical Care Note This patient required my direct & personal management of CC.: No Attestation - Physician/ REGINALD Attestation Patient care was provided by Advanced Practice Provider:: No The physician spent face to face time with patient:: Yes Advanced Practice Provider documentation review:: Supervising physician onsite and consulted in the evaluation and care of this patient. The physician did have a face to face encounter with the patient.
[2019-04-26 19:38] LABS: ALLEN TEST YES; BE -4.3 mmoll (-3.0-3.0); BLOOD TYPE ARTERIAL; HCO3-(ACT) 21.6 mmoll (20.0-26.0); METHB 0.9 % (0.0-1.5); MODALITY NRB; O2(CT) 14.9 mL/dL (15.0-23.0); O2HB 97.5 % (95.0-99.0); PCO2(98.6) 33 mmHg (35-45); PO2(98.6) 164 mmHg (60-100); SAMPLE BLOOD; SAO2 100.9 % (95.0-100.0); THB 10.6 g/dL (11.5-17.4); pH(98.6) 7.39 (7.35-7.45)
--- NOTE | 2019-04-26 19:53 | Diag Imaging Result Doc PS360 ---
EXAM: CHEST-1 VIEW HISTORY: Shortness of breath TECHNIQUE: Single view COMPARISON: 03/30/2019 FINDINGS: The lungs are well expanded. The heart is not enlarged. The vessels are not distended. There are basilar infiltrates. No effusion identified. IMPRESSION: Bilateral lower lobe pneumonia. Electronically signed by Nitesh Gillette 04/26/2019 7:51 PM
[2019-04-26 20:13] LABS: BASO# 0.03 X1000 (0.0-0.2); BASO% 0.1 % (0.0-0.8); EOS# 0.14 X1000 (0.0-0.7); EOS% 0.6 % (0.0-10.0); HEMATOCRIT 28.1 % (42.0-52.0); HEMOGLOBIN 8.8 g/dL (14.0-18.0); IMM GRAN# 0.09 X1000 (0.0-0.04); IMM GRAN% 0.4 % (0.0-0.5); LYMPH% 7.2 % (20.5-51.1); MCH 27.6 PG (27-31); MCHC 31.3 g/dL (33-37); MCV 88.1 FL (81-99); MONO# 1.11 X1000 (0.11-0.59); MPV 11.3 FL (7.4-10.4); NEUT# 19.11 X1000 (1.4-6.5); NEUT% 86.7 % (42.2-75.2); PLT 433 X1000 (130-400); RBC 3.19 XMIL (4.7-6.1); RDW 15.4 % (11.5-14.5); WBC 22.08 X1000 (4.8-10.8)
[2019-04-26] MEDS ORDERED: VANCOMYCIN 1 GM/NS 1 GM/250 ML IVPB IV ONE (20:16)
[2019-04-26] MEDS ORDERED: NS 1,000 ML IV ONE ×2 (20:17→23:12)
[2019-04-26 20:19] LABS: INR 1.22; PROTIME 15.6 Seconds (11.0-16.0)
[2019-04-26 20:20] LABS: PTT 41.5 Seconds (22.3-41.8)
[2019-04-26] MEDS ORDERED: ZOSYN 4.5 GM in NS 100 ML IV SCH (20:30)
[2019-04-26 20:36] LABS: ALB/GLOB RATIO 0.7; ALBUMIN 2.6 g/dL (3.5-5.0); CALCIUM 10.4 mg/dL (8.8-10.2); MAGNESIUM 1.5 mg/dL (1.5-2.7); POTASSIUM 5.2 mmol/L (3.5-5.1); TOTAL BILIRUBIN 0.63 mg/dL (0.20-1.00); TOTAL PROTEIN 6.4 g/dL (6.3-8.3)
[2019-04-26 20:37] LABS: CREATININE 5.1 mg/dL (0.7-1.2)
[2019-04-26] MEDS ORDERED: TYLENOL PO PRN (23:12)
[2019-04-26] MEDS ORDERED: ZOFRAN IV PRN (23:12)
--- NOTE | 2019-04-26 23:12 | HISTORY AND PHYSICAL ---
PRIMARY CARE PHYSICIAN: Dr. Lema. CHIEF COMPLAINT: Shortness of breath. HISTORY OF PRESENTING ILLNESS: A 63-year-old male with a history of CVA who is basically aphasic, hypertension, diabetes mellitus type 2, CHF, who was on hospice, was brought to the emergency department due to patient desaturating and having shortness of breath. Apparently, family wanted to recind hospice and wanted all measures to be done for the patient. The family that was available did not know much about the patient's history. His was not around to provide any history. Most of the history is obtained from previous records. PAST MEDICAL HISTORY: Includes CVA, hypertension, diabetes mellitus type 2, CHF, schizophrenia. PAST SURGICAL HISTORY: Back surgery. ALLERGIES: Sulfa, cephalexin. CURRENT MEDICATIONS: Include Norvasc 10 mg p.o. daily, Abilify 5 mg p.o. at bedtime, aspirin 325 mg p.o. daily, Cymbalta 30 mg p.o. daily, Invanz 1 g IV daily, hydralazine 25 mg p.o. t.i.d., levalbuterol nebs q.6 hours, lisinopril 20 mg p.o. b.i.d., metformin 500 mg p.o. b.i.d., metoprolol 50 mg p.o. b.i.d., tamsulosin 0.4 mg p.o. b.i.d. SOCIAL HISTORY: No history of smoking, alcohol or illicit drug use. He is basically bed bound. FAMILY HISTORY: No history of coronary artery disease. REVIEW OF SYSTEMS: Unable to obtain due to patient being aphasic. PHYSICAL EXAMINATION: GENERAL: The patient is resting comfortably. VITAL SIGNS: Temperature 97.8 degrees, pulse 99, respirations 17, blood pressure 101/64. HEENT: Atraumatic, normocephalic. NECK: No masses. CHEST: Rhonchi. CARDIOVASCULAR: Regular rate and rhythm. ABDOMEN: Soft. Positive bowel sounds. EXTREMITIES: No edema. NEUROLOGIC: He is awake and arousable. He does not follow any commands. GENITOURINARY: No bladder distention. SKIN: Warm. LABORATORIES AND STUDIES: WBC 22.08, hemoglobin 8.8, hematocrit 28.1, platelets 433,000. Sodium 134, potassium 5.2, chloride 97, CO2 is 19, BUN is 50, creatinine 5.1. Glucose 157. Troponin is 108. Chest x-ray shows bilateral lower lobe pneumonia. ASSESSMENT: A 63-year-old male with a history of cerebrovascular accident with aphasia, hypertension, diabetes mellitus type 2, congestive heart failure, was brought to the emergency department due to patient being short of breath and coughing. He was evaluated in the emergency department. He had imaging done, which did show possible pneumonia. Subsequently, he will require admission for further management assessment. 1. Suspected pneumonia. 2. Acute kidney injury. 3. Hypertension. 4. Cerebrovascular accident with aphasia. 5. Diabetes mellitus type 2. PLAN: 1. We will admit patient to [facility]. 2. We will check blood cultures. Start patient on IV antibiotics. 3. We will continue with supplemental oxygen. 4. We will call Nephrology for evaluation of renal failure. 5. Monitor blood pressure closely. 6. We will restart his home medications. 7. We will put patient on DVT prophylaxis with SCDs. 8. We will continue to follow, reassess, make further recommendation based on patient's clinical course. cc: Khadar Kang MD MTDD
[2019-04-26] MEDS ORDERED: NS NEB INH SCH (23:30)
[2019-04-26] MEDS: ATROVENT NEB INH SCH (23:39)
[2019-04-26] MEDS: XOPENEX NEB INH SCH (23:39)
[2019-04-27 00:22] LABS: URINE SOURCE CLEAN CATCH
[2019-04-27 00:40] LABS: BILIRUBIN URINE SMALL (NEGATIVE); BLOOD URINE MODERATE (NEGATIVE); COLOR ORANGE; GLUCOSE URINE TRACE mg/dL (NEGATIVE); KETONE URINE TRACE mg/dL (NEGATIVE); LEUKOCYTES URINE LARGE (NEGATIVE); NITRITE URINE NEGATIVE (NEGATIVE); PH URINE 5.5; PROTEIN URINE 200 mg/dL (NEGATIVE); SP GRAVITY URINE 1.027; TURBIDITY URINE TURBID (CLEAR); UR EPITHELIAL CELLS >10 /HPF (<10); URINE BACTERIA 1+ /HPF; URINE RBC 20-40 /HPF (<10); URINE WBC TNTC /HPF (<10); UROBILINOGEN URINE 3 mg/dL (NORMAL)
[2019-04-27] MEDS: INVANZ 1 GM/NS 1 GM/50 ML IVPB IV SCH (00:40)
[2019-04-27 00:44] LABS: URINE CASTS NONE SEEN; URINE CRYSTALS NONE SEEN; URINE SMALL ROUND CELLS NONE SEEN; URINE YEAST NONE SEEN
[2019-04-27] MEDS ORDERED: ZOSYN 2.25 GM in NS 50 ML IV SCH (02:30)
[2019-04-27 06:33] LABS: BASO# 0.03 X1000 (0.0-0.2); BASO% 0.1 % (0.0-0.8); EOS# 0.25 X1000 (0.0-0.7); EOS% 1.1 % (0.0-10.0); HEMATOCRIT 28.6 % (42.0-52.0); HEMOGLOBIN 8.9 g/dL (14.0-18.0); IMM GRAN# 0.09 X1000 (0.0-0.04); IMM GRAN% 0.4 % (0.0-0.5); LYMPH# 1.86 X1000 (1.2-3.4); LYMPH% 8.2 % (20.5-51.1); MCH 27.6 PG (27-31); MCHC 31.1 g/dL (33-37); MCV 88.5 FL (81-99); MONO# 1.16 X1000 (0.11-0.59); MONO% 5.1 % (1.7-9.3); NEUT# 19.37 X1000 (1.4-6.5); NEUT% 85.1 % (42.2-75.2); PLT 380 X1000 (130-400); RBC 3.23 XMIL (4.7-6.1); RDW 15.6 % (11.5-14.5); WBC 22.76 X1000 (4.8-10.8)
[2019-04-27 06:49] LABS: CALCIUM 9.7 mg/dL (8.8-10.2); POTASSIUM 4.7 mmol/L (3.5-5.1)
[2019-04-27 06:57] LABS: CREATININE 5.5 mg/dL (0.7-1.2)
[2019-04-27] MEDS: HUMULIN R SUBQ SCH ×4 (07:00→21:09)
[2019-04-27 07:58] LABS: EOS 1 % (1-10); LYMPHS 6 % (21-51); MONO 6 % (1-9); SEGS 87 % (42-75)
[2019-04-27] MEDS ORDERED: CLINIMIX E 4.25%-5% SOLUTION 1,000 ML IV SCH (08:45)
[2019-04-27] MEDS: ASPIRIN PO SCH (09:00)
[2019-04-27] MEDS: FLOMAX PO SCH ×2 (09:00→21:08)
[2019-04-27] MEDS: VITAMIN D PO SCH (09:00)
[2019-04-27] MEDS: CYMBALTA PO SCH (09:00)
[2019-04-27] MEDS ORDERED: PRINIVIL PO SCH (09:00)
--- NOTE | 2019-04-27 09:10 | PROGRESS NOTE ---
DATE: 04/27/2019 SUBJECTIVE: No family members around the patient. The patient is nonverbal. He is basically aphasic. He had a stroke recently at the level of the left basal ganglia and brainstem. He presented with pneumonia and acute kidney injury. Since I did not have any information, I called his , [*] Puma at [phone]. We discussed about the patient and she told me that he really is not able to swallow too much and he has been choking frequently. On the other hand, he lives with a brother who is taking care of him because, apparently, she cannot take care of him. He has been in hospice as well. We had a large conversation about the advanced directives. We talked about his resuscitation status and after a few minutes explaining to her the whole situation, she has decided to put this patient Do Not Resuscitate level 1. She told me that she will come by today so we can talk better but she did not make too many decisions. I asked her about nutrition since he is not able to swallow and she said that she does not want a feeding tube through his nose or through his belly. Probably, I will put this patient on Clinimix on top of the normal saline. I also asked her about dialysis or other aggressive measures but she does not know what to do at this point. OBJECTIVE: Vital Signs: Temperature 98.1 degrees, pulse 102, respiratory rate 14, blood pressure 133/75, oxygen saturation 98% on 4 L of nasal cannula. HEENT: Head normocephalic. No trauma. Neck: Supple. Chest: He has bilateral rhonchi at the bases. Abdomen: Soft. Positive bowel sounds. Extremities: No edema. Neurological Examination: He is awake but he is not following commands for me. I think he was able to squeeze my hand with the right hand but it is not constant. He is aphasic. Skin and Mouth: He seems to be slightly dehydrated at this moment. Laboratory: WBC 22, hemoglobin is 8.9, hematocrit 28.6, platelets 380,000. Sodium 136, potassium 4.7, chloride 102, bicarbonate 19, BUN 50, creatinine 5.5, glucose 123, calcium 9.7. Troponin 112. ASSESSMENT AND PLAN: 1. Bilateral lower lobe pneumonia. Continue with broad-spectrum antibiotics. His white blood cells are still elevated. He has been placed on cefepime. We will continue with the same management. No fever at this moment. 2. Acute kidney injury on chronic kidney disease. Nephrology department has been consulted but I do not think we are going to be aggressive with this patient. I will continue with intravenous fluids since he is dehydrated. 3. History of cerebrovascular accident at the level of the left basal ganglia and brainstem. Aware. I will monitor for now. He is aphasic. 4. Hypertension, stable. We will continue to monitor. 5. Type 2 diabetes. I will monitor for now and we will use pattern of blood sugar and sliding scale insulin. I do not think he is able to swallow. 6. Nutritional status. I will start this patient on Clinimix and tomorrow, we will get the swallow evaluation team to see him again. I had a conversation with the and she states that she does not want a feeding tube through his belly or nose. She will come today and we will talk again, hopefully. 7. Possible history of congestive heart failure. This has been documented as a previous history before but I do not have any records or echocardiogram. At this point, I will just observe. 8. History of schizophrenia. Continue with his home medications. 9. Resuscitation status. This patient is Do Not Resuscitate level 1. Advance directives have been discussed for at least 20 minutes. cc: Chris Abarca MD
[2019-04-27] MEDS: CLINIMIX E 4.25%-5% SOLUTION 1,000 ML IV SCH (09:28)
[2019-04-27] MEDS: XOPENEX NEB INH SCH ×3 (09:41→22:41)
[2019-04-27] MEDS: ATROVENT NEB INH SCH ×3 (09:41→22:41)
[2019-04-27 14:28] LABS: URINE SOURCE CATH
[2019-04-27 14:38] LABS: BILIRUBIN URINE NEGATIVE (NEGATIVE); BLOOD URINE MODERATE (NEGATIVE); COLOR ORANGE; GLUCOSE URINE NEGATIVE (NEGATIVE); KETONE URINE NEGATIVE (NEGATIVE); LEUKOCYTES URINE LARGE (NEGATIVE); NITRITE URINE POSITIVE (NEGATIVE); PROTEIN URINE 100 mg/dL (NEGATIVE); SP GRAVITY URINE 1.018; TURBIDITY URINE TURBID (CLEAR); UROBILINOGEN URINE NORMAL (NORMAL)
[2019-04-27 14:41] LABS: UR CREAT RANDOM 120.9 mg/dL (14-26); UR PROT RANDOM 122.9 mg/dL
[2019-04-27 14:42] LABS: UR EPITHELIAL CELLS <10 /HPF (<10); URINE BACTERIA 1+ /HPF; URINE RBC <10 /HPF (<10); URINE WBC TNTC /HPF (<10)
[2019-04-27 14:46] LABS: URINE YEAST PRESENT
--- NOTE | 2019-04-27 15:09 | PROGRESS NOTE ---
DATE: 04/27/2019 His family member is at the bedside, and we had a large conversation about this patient and his wishes. It looks like he does not want to be getting an NG tube or a feeding tube through his belly. Also, he basically corroborated that he wants to be DO NOT RESUSCITATE. In case of more problems with the kidney function, he does not want to get dialysis. This information has been provided by the family, his and daughter, who are at the bedside. The plan is to continue with IV fluids, continue with antibiotics and the rest of the treatment. Will get the Palliative Care nurse to evaluate this patient tomorrow, and also I will ask the swallow team to evaluate this patient tomorrow as well. We will try to contact tomorrow through the Palliative Care nurse, hospice, so we can discharge this patient back home so he can be comfortable. Time discussing this patient's advanced directive with the family was around 35 minutes. cc: Chris Abarca MD
--- NOTE | 2019-04-27 19:43 | Diag Imaging Result Doc PS360 ---
EXAM: CT ABDOMEN/PELVIS W/O CONTRAST 04/27/2019 HISTORY: decreased renal function TECHNIQUE: This exam was performed using automated exposure control, adjustment of mA or kV according to patient size, and/or use of iterative reconstruction technique. COMMENT: There is ill-defined opacity in both lower lobes and the inferior lingula and right middle lobe. This was not the case on the previous study. The gallbladder is somewhat distended. There are no apparent stones. There is no evidence of hydronephrosis or stones. There is some perinephric stranding on the right which was not apparently present on 03/12/2019. There is retained oral contrast in the colon. The small bowel is not distended. The appendix is normal in appearance. There is a fat-containing umbilical hernia. There is a Campo catheter in the bladder. There is some gas in the bladder. There is no evidence of free fluid. There are some diverticula in the sigmoid colon but no evidence of diverticulitis is present. The regional skeleton is intact. IMPRESSION: 1. Bibasilar pneumonia. 2. Distended gallbladder and thickened gallbladder wall. The possibility of acalculous cholecystitis cannot be excluded. 3. Questionable perinephric edema. No evidence of obstruction. The possibility of pyelonephritis cannot be excluded. Electronically signed by Ramiro Lopez 04/27/2019 7:40 PM
[2019-04-27] MEDS ORDERED: ABILIFY PO SCH (21:00)
[2019-04-28] MEDS: INVANZ 1 GM/NS 1 GM/50 ML IVPB IV SCH (00:58)
[2019-04-28] MEDS: CLINIMIX E 4.25%-5% SOLUTION 1,000 ML IV SCH ×2 (01:28→04:45)
[2019-04-28] MEDS: HUMULIN R SUBQ SCH ×2 (06:23→15:34)
--- NOTE | 2019-04-28 07:44 | EKG Report ---
Test Performed on : 04/26/2019 6:13:00 PM Test Reason : ED. NO EKG ORDER FOR MUSE Blood Pressure : / mmHG Vent. Rate : 105 BPM Atrial Rate : 105 BPM P-R Int : 148 ms QRS Dur : 080 ms QT Int : 322 ms P-R-T Axes : 046 062 051 degrees QTc Int : 425 ms Sinus tachycardia. Nonspecific ST and T wave abnormality Abnormal ECG When compared with ECG of 20-MAR-2019 02:40, Sinus rhythm. has replaced Junctional rhythm. Non-specific change in ST segment in Inferior leads ST elevation has replaced ST depression in Lateral leads Nonspecific T wave abnormality now evident in Lateral leads Unconfirmed Result
--- NOTE | 2019-04-28 08:41 | Diag Imaging Result Doc PS360 ---
CHEST-2 VIEWS - 04/28/2019 INDICATION: Possible aspiration COMPARISON: 04/26/2019 FINDINGS: There has been improvement in the infiltrate in the right lung base. There is persistent dense infiltrate in the left lower lobe compatible with aspiration or bronchopneumonia. No pneumothorax or pleural effusion. Heart size remains borderline. IMPRESSION: Improvement in the right lower lobe infiltrate. Persistent infiltrate in the left lower lobe. Electronically signed by Norberto Siddiqui 04/28/2019 8:39 AM
[2019-04-28 09:15] LABS: BASO# 0.02 X1000 (0.0-0.2); BASO% 0.1 % (0.0-0.8); EOS# 0.06 X1000 (0.0-0.7); EOS% 0.3 % (0.0-10.0); HEMATOCRIT 27.9 % (42.0-52.0); HEMOGLOBIN 8.8 g/dL (14.0-18.0); IMM GRAN# 0.11 X1000 (0.0-0.04); IMM GRAN% 0.5 % (0.0-0.5); LYMPH# 1.13 X1000 (1.2-3.4); LYMPH% 5.3 % (20.5-51.1); MCH 27.2 PG (27-31); MCHC 31.5 g/dL (33-37); MCV 86.1 FL (81-99); MONO# 1.16 X1000 (0.11-0.59); MONO% 5.5 % (1.7-9.3); MPV 11.1 FL (7.4-10.4); NEUT% 88.3 % (42.2-75.2); PLT 401 X1000 (130-400); RBC 3.24 XMIL (4.7-6.1); RDW 15.5 % (11.5-14.5); WBC 21.28 X1000 (4.8-10.8)
[2019-04-28 09:33] LABS: BANDS 9 % (0-1); LYMPHS 2 % (21-51); SEGS 89 % (42-75)
[2019-04-28 09:41] LABS: ALB/GLOB RATIO 0.4; ALBUMIN 2.1 g/dL (3.5-5.0); CALCIUM 10.3 mg/dL (8.8-10.2); CREATININE 5.8 mg/dL (0.7-1.2); POTASSIUM 4.8 mmol/L (3.5-5.1); TOTAL BILIRUBIN 0.33 mg/dL (0.20-1.00); TOTAL PROTEIN 7.2 g/dL (6.3-8.3)
[2019-04-28] MEDS: ATROVENT NEB INH SCH ×2 (10:10→16:44)
[2019-04-28] MEDS: XOPENEX NEB INH SCH ×2 (10:10→16:44)
[2019-04-28] MEDS: ASPIRIN PO SCH (13:11)
[2019-04-28] MEDS: VITAMIN D PO SCH (13:11)
[2019-04-28] MEDS: FLOMAX PO SCH (13:11)
[2019-04-28] MEDS: CYMBALTA PO SCH (13:11)
[2019-04-28] MEDS ORDERED: DULCOLAX PR SCH (13:15)
[2019-04-28 13:50] VITALS: BP 142/60
[2019-04-28] MEDS ORDERED: MORPHINE IV ONE (15:43)
--- NOTE | 2019-04-28 19:09 | PROVIDER PROGRESS NOTE ---
Progress Note Chief complaint: unable to voice due to aphasia HPI: mr. Bartholomew is a 63-year-old -[place] male with a past medical history of CVA with aphasia, hypertension, diabetes mellitus type two, and congestive heart failure. All medical information is coming from previous records because the patient is aphasic and there is no family at bedside. He has been on hospice and receiving care at his house when his family decided to bring him in Sunday due to shortness of breath and oxygen desaturation. Upon evaluation and emergency department, he was found to have bilateral leg pneumonia requiring admission for further assessment. His admitting creatinine was 5.1 and today is 5.8. We are unsure of a baseline creatinine. Is your analysis had protein and glucose on admission. His urine random creatinine was 120.9 and urine random sodium 88. Past medical history: CVA with aphasia, hypertension, diabetes mellitus type two, congestive heart failure, schizophrenia. Past surgical history: back surgery. Social history: lives at home with family has been receiving hospice care. Former smoker. No alcohol or illicit drug use. Family history: no history of coronary artery disease. Home medications: amlodipine, Abilify, aspirin, vitamin D3, Duloxetine,Invanz, hydralazine, Atrovent nebulizers, xopenex nebulizer, lisinopril, Metformin, m etoprolol, Remeron, and Flomax. Review of systems: unable to complete due to patient being aphasic. Physical exam: temperature 97.7, pulse 102, respirations 14, blood pressure 154/78, 02 sat 98% on room air. General: chronically ill elderly -[place] male lying in bed in no acute distress. HEENT: normocephalic, atraumatic, pupils equal and reactive, mucous membranes dry. Skin: warm and dry Neck: supple, no evidence of JVD. Cardiovascular: S1S2, tachycardic rate and rhythm. No murmur or gout noted. Respiratory: scattered rhonchi and crackles throughout bilaterally. Abdomen: soft, nontender, nondistended. Bowel sounds present. : not inspected, sky in place. Extremities: no clubbing, cyanosis, or edema. Neurological: drowsy, unable to assess orientation. Nods his head to yes and no questions at times. Labs: WBC 21.28, hemoglobin 8.8, hematocrit 27.9, platelet count 401, sodium 139, potassium 4.8, chloride 103, carbon dioxide 17, BUN 61, creatinine 5.8, calcium 10.3, albumin 2.1. Intake 800, output 800. Imaging: chest x-ray impression improvement in the right lower lobe infiltrate. Persistent infiltrate in the left lower leg. Abdomen pelvis CT without contrast impression by Bassler pneumonia, distended gallbladder or thickened gallbladder wall. Questionable perinephric edema. No evidence of obstruction. Possibility of pyelonephritis cannot be excluded. Assessment and plan: Acute on chronic kidney disease stage 3 secondary to presumed diabetic nephropathy. Multifactorial ischemic acute tubular necrosis likely related to sepsis, hypovolemia. Pt was made a DNR and will be speaking with palliative care today about a further plan of care. Hypercalcemia. Was receiving vitamin D at home. We will stop this medication. Metabolic acidosis. Observe. Awaiting plan of care decision. Blood pressure. Stable. Electrolytes. Stable. Nutrition. Clinimix in place. Medication review. Changed to Invanz 500mg. Note decision to go home with hospice. We will sign off. Please call if I can help. rg
[2019-04-29] MEDS ORDERED: INVANZ 0.5 GM in NS 50 ML IV SCH (01:00)
--- NOTE | 2019-04-29 12:54 | DISCHARGE SUMMARY ---
ADMISSION DATE: 04/26/2019 DISCHARGE DATE: 04/28/2019 DISCHARGE DIAGNOSES: 1. Sepsis due to pneumonia. 2. Bilateral lower lobe pneumonia, likely due to aspiration pneumonia. 3. Acute on chronic kidney disease. 4. History of cerebrovascular accident at the level of the left basal ganglia and brainstem. 5. Hypertension. 6. Dysphagia. 7. Type 2 diabetes. 8. History of congestive heart failure. 9. History of schizophrenia. 10. This patient is DNR level 1. PROCEDURES PERFORMED: 1. Chest x-ray dated 04/13/20142019. Impression: Bilateral lower lobe pneumonia. 2. Abdomen and pelvis CT scan dated 04/27/2019. Impression: Bibasilar pneumonia, distended gallbladder, a thickened gallbladder wall with the possibility of acalculous cholecystitis cannot be excluded, questionable perinephric edema. No evidence of obstruction. The possibility of pyelonephritis cannot be excluded. 3. Chest x-ray dated 04/28/2019. Impression: Improvement in the right lower lobe infiltrate. Persistent infiltrate in the left lower lobe. HOSPITAL COURSE: The patient has been admitted on 04/26/2019. At the moment of admission no family members at the bedside, the patient is actually nonverbal. He is basically aphasic, he has a recent stroke at the level of the left basal ganglia and brain stem. He presented with pneumonia and acute kidney injury, the admitting doctor did not have any information, but I called his , Mrs. Bartholomew, we discussed about the patient and she told me that he really is not able to swallow too much and he has been choking frequently. On the other hand, he lives with a brother who is taking care of him because apparently she cannot take care of him, but she spends most of the day with him. He has been in hospice as well until the day of admission. We had a long conversation about the Advanced Directive. We talked about his resuscitation status and after a few minutes explaining to her the whole situation she had decided to put this patient Do Not Resuscitate level 1. She told me that she will come that day to meet with me, and she did. I talked to her and I talked to his [id number] at the bedside and they seemed to understand the whole situation. The patient is not able to swallow by himself and even though we did a swallow evaluation apparently, he was able to swallow some; immediately, he had projectile vomiting. For his acute kidney injury, we consulted Dr. Hand but no intervention was performed because today after talking with palliative care the family has decided to go back home with hospice and just let the patient stay at home comfortable. We asked multiple times to the patient who is able to move the head for yes or no what kind of treatment he wants and he denied to get any NG tube or PEG tube for him. In the case of dialysis he did not want to get dialysis as well. The patient will be discharged today. Medications will be provided by the hospice team. I discussed the case again today with the family at the bedside and they seem to understand and they want to continue with the plan. PHYSICAL EXAMINATION: Vital Signs: Temperature 98.2 degrees, pulse 100, respiratory rate 18, blood pressure 142/60, oxygen saturation 98 on 2 L of nasal cannula. HEENT: Head normocephalic. No trauma. Neck: Supple. Chest: He has bilateral rhonchi at the bases. Abdomen: Soft. Positive bowel sounds. Extremities: No edema. No clubbing, no cyanosis. Neurological: She is awake. He is following commands for me today. He was able to squeeze my hand with his 2 hands, but he does not move too much. He is aphasic. He is not able to move and he has problems swallowing. LABORATORY: WBC 21.2, hemoglobin 8.8, hematocrit 27.9, platelet 401,000. Sodium 139, potassium 4.8, chloride 103, bicarbonate 17, BUN 61, creatinine 5.8, glucose 193, calcium 10.3, AST 26, ALT 48, alkaline phosphatase 751, albumin 2.1. DISCHARGE MEDICATIONS: Per the hospice team. cc: Chris Abarca MD
== END 2019-04-28 19:43 | disposition hospice, home (50) | DRG 871 ==
LOC: ED 18:08 → EDIPHOLD 22:54 → SUATTDRO 22:54 → EDIPHOLD 04-27 15:37 → 3N 04-27 16:53
PROVIDERS: ATTEND Internal Medicine